=== PATIENT | female | born 1960 | race Caucasian/White ===

== ENCOUNTER 2018-01-06 06:43 | Day surgery (SDC) | payer BC, OTHER, SELFPAY ==
--- NOTE | 2018-01-06 | PATH_ITS ---
[facility] Accession Number: [id number] . 01 Material submitted: . POLYP AT 15 . 02 Diagnosis: Colon Polyp at 15 cm: Hyperplastic polyp. MRV/01/09/2018 . 02 Electronically signed: . Joao White MD, PhD, Pathologist NPI- [id number] . 01 Gross description: . POLYP AT 15: Received in formalin are 1 fragment(s) of davis, soft tissue measuring 0.3 x 0.2 x 0.1 cm to 0.2 x 0.2 x 0.2 cm submitted entirely in 1 cassette(s) /CKI /CKI . 02 Pathologist provided ICD-10: K63.5 . 02 CPT . 688195 Performed at: [address] [facility] [address] [place] [address], [place], [place] [id number] MD John Page MD Phone: [phone] Performed at: 02 [facility] [address] [place], [place] [id number] MD Rodger Kohli MD Phone: [phone]
[2018-01-06 07:30] VITALS: BP 130/78; PULSE 100; RESP 16; TEMP 36.4; O2SAT 99; BMI 29.9
[2018-01-06] MEDS: MIDAZOLAM 5 MG/5 ML VIAL IV (08:41)
[2018-01-06] MEDS: fentaNYL 250 MCG/5 ML INJ IV (08:42)
--- NOTE | 2018-01-06 08:47 | PM.OP.ENDO ---
Operative Date/Time/Diagnoses Date of procedure: 01/06/18 Time of procedure: 08:47 Post-op diagnosis: same (Normal exam except for small polyp in the rectum at 15 cm from the anal verge) Procedure & Clinicians Study performed: Colonoscopy with cold biopsy Same procedure as scheduled: Yes Indications: Abnormal PET scan in a patient with a history of lymphoma Surgeon: Ulysses Jones Procedure Notes SCOAP/Timeout: Performed Procedure in detail: The patient was placed in the left lateral decubitus position and underwent IV sedation directed by the surgeon consisting of fentanyl and Versed. Digital exam was remarkable for lax sphincter and some redundant tissue at the anus. The scope was inserted and advanced through the rectum into the sigmoid, descending, transverse, and ascending colon. All were normal in appearance. Nothing was seen to correlate with the PET findings. The cecum was reached identified by the ileocecal valve and the appendiceal opening. The ileocecal valve was successfully cannulated. The terminal ileum was normal in appearance. The scope was gradually brought out. A Polyp was found at[15 cm from the anal verge]. The scope ultimately was retroflexed in the rectum. The appearance was[normal except for 1 small hemorrhoid.]. The scope was removed and the patient tolerated the procedure well Scope withdrawal time: Over 6 min Sedation minutes: 27 Findings: internal hemorrhoids and polyp (One small rectal) Specimen(s): other (Polyp) Complications: none Recommendations: Colonscopy in 5 years Follow up: as needed Disposition: PACU
--- NOTE | 2018-01-06 09:03 | PM.PREOP ---
Pre-operative Note Interval Note Pre-op Check: Yes History & Physical Reviewed by Physician and Yes Exam Performed Changes: No ASA Class (for procedural sedation): II
[2018-01-06 10:08] VITALS: BP 118/68; PULSE 94; RESP 16; TEMP 36.4; O2SAT 99
== END 2018-01-06 09:05 | disposition home or self-care (01) ==
PROVIDERS: Visit Provider Specialist
PROC: 0DJD8ZZ Inspection of Lower Intestinal Tract, Via Natural or Artificial Opening Endoscopic (ICD-10-PCS; CPT 45378; principal; 2018-01-06 07:45)
DX: R94.8 Abnormal results of function studies of other organs and systems (principal); C85.10 Unspecified B-cell lymphoma, unspecified site; I10 Essential (primary) hypertension; K64.8 Other hemorrhoids; K63.5 Polyp of colon
CPT/HCPCS: 45380; 99152; 99153; J2250; J3010

== ENCOUNTER → 2018-04-07 14:08 | Outpatient (CLI) | payer OTHER, SELFPAY ==
--- NOTE | 2018-04-07 | DI.CT.S_ITS ---
PROCEDURE: CT SOFT TISSUE NECK W CON INDICATIONS: LYMPHOMA TECHNIQUE: After the administration of intravenous contrast, 3.0 mm axial sections acquired from the sella to the aortic arch. Additional oblique axial 3.0 mm sections acquired through the pharynx. 3 mm thick coronal and sagittal reformats were generated. For radiation dose reduction, the following was used: automated exposure control. COMPARISON: [facility], CT, C-SPINE WITHOUT CONTRAST, 04/18/2012, 23:51. [facility], CT, SOFT TISSUE NECK W CONTRAST, 06/07/2017, 12:42. [facility], CT, CT CHEST ABD PEL W CON, 04/07/2018, 14:59. FINDINGS: Image quality: Excellent. Lymph nodes: No enlarged lymph nodes seen throughout the neck. Vessels: Visualized vasculature appears patent. Neck spaces: The oropharynx, nasopharynx, and pharynx demonstrate no mucosal lesions. The vocal cords, false vocal cords, pyriform sinuses, epiglottis, vallecula, and tongue base all appear normal. Extramucosal spaces appear unremarkable. Glands: The previously seen left parotid gland abnormality is no longer seen. The parotid glands demonstrate a normal, symmetric appearance. The submandibular glands are unremarkable and demonstrate a normal, symmetric appearance. Thyroid gland demonstrates no significant CT abnormality. Miscellaneous: Visualized brain and orbits appear normal. Lung apices appear clear. Superficial soft tissues appear normal. Bones: No suspicious bony lesions. Visualized sinuses and mastoids appear unremarkable. Cervical spine degenerative changes are seen, which are most prominent at the C5-C6 level, where there is moderate to severe disc space narrowing, with associated endplate irregularity and sclerosis. IMPRESSION: No enlarged lymph nodes can be seen in this patient with a presenting history of lymphoma. The previously seen left parotid mass is no longer seen. Incidental note is made of: Focal C5-C6 degenerative change Dictated by: Christopher Henriquez M.D. on 04/07/2018 at 15:59 Approved by: Christopher Henriquez M.D. on 04/07/2018 at 16:02
--- NOTE | 2018-04-07 | DI.CT.S_ITS ---
PROCEDURE: CT CHEST ABD PEL W CON INDICATIONS: LYMPHOMA TECHNIQUE: After the administration of oral and intravenous contrast, 5 mm thick sections acquired from the lung apices to the symphysis. 5 mm coronal and sagittal reformats were performed, with additional 7 mm coronal MIP reformats through the lungs. For radiation dose reduction, the following was used: automated exposure control, adjustment of mA and/or kV according to patient size. COMPARISON: [place], [place], [place] PET CT FUSION SKULL 2 THIGH, 12/14/2017, 13:44. FINDINGS: Image quality: Excellent. CHEST: Lungs and pleura: No acute airspace opacities. No pleural effusions or pneumothorax. Central and peripheral airways appear patent and normal in caliber. Mediastinum: Heart size is normal. No pericardial effusion. No mediastinal or hilar adenopathy by size criteria. Thoracic aorta and central pulmonary arteries are normal in size. Scattered atheromatous calcifications are present within the aortic arch. Esophagus is normal in caliber. No hiatal hernia. Chest wall: No axillary or supraclavicular adenopathy by size criteria. Thyroid gland is unremarkable. ABDOMEN: Solid organs: Liver is normal in size and enhancement. Gallbladder is unremarkable. Biliary system is non dilated. Pancreas enhances normally. Spleen is normal in size and enhancement. No adrenal nodules. Kidneys demonstrate normal size and enhancement, without hydronephrosis. Peritoneum and bowel: Bowel loops demonstrate normal wall thickness and caliber. No free fluid or air. Nodes and vessels: There multiple large mesenteric lymph nodes predominantly within the mid abdomen near the mesenteric root. A assisted sales representative lymph node anterior to the proximal jejunum now measures 1.0 mm in diameter and previously measured 1.1 mm in diameter. An enlarged left retroperitoneal lymph node is similar in size and measures 10 mm in diameter as before. Aorta and inferior vena cava are normal in size. There are scattered atheromatous calcifications throughout the aorta and iliac arteries bilaterally. Miscellaneous: No ventral hernias. PELVIS: Genitourinary: Bladder wall thickness is normal. The uterus and ovaries are grossly unremarkable. Miscellaneous: No inguinal hernias or adenopathy. Bones: No suspicious bony lesions. No vertebral body compression fractures. IMPRESSION: 1. Mesenteric and retroperitoneal adenopathy overall similar in extent when accounting for variation in technique when compared with the study dated 12/14/17. 2. No acute cardiopulmonary or intra-abdominal findings. Dictated by: Nikki Lozano M.D. on 04/07/2018 at 17:34 Approved by: Nikki Lozano M.D. on 04/07/2018 at 17:42
== END ==
PROVIDERS: Visit Provider Internal Medicine Hematology & Oncology
DX: C82.90 Follicular lymphoma, unspecified, unspecified site (principal); R59.0 Localized enlarged lymph nodes
CPT/HCPCS: 70491; 71260; 74177; Q9967

== ENCOUNTER → 2018-08-25 13:39 | Outpatient (CLI) | payer OTHER, SELFPAY ==
--- NOTE | 2018-08-25 | DI.RAD.S_ITS ---
PROCEDURE: XR HIP W PEL IF DONE BILAT 2V INDICATIONS: NECK AND BILATERAL HIP PAIN TECHNIQUE: AP pelvis with lateral view(s) of the bilateral hip(s). COMPARISON: None. FINDINGS: Bones: No fractures or dislocations. Mild bilateral symmetric hip joint osteoarthritic changes are seen. No evidence of avascular necrosis. Pelvic ring appears intact. No suspicious bony lesions. Soft tissues: The visualized bowel gas pattern is normal. No suspicious soft tissue calcifications. IMPRESSION: Symmetric-appearing mild bilateral hip joint osteoarthritis. Dictated by: Beltran Amaya M.D. on 08/25/2018 at 15:27 Approved by: Beltran Amaya M.D. on 08/25/2018 at 15:28
--- NOTE | 2018-08-25 | DI.RAD.S_ITS ---
PROCEDURE: XR CERVICAL SPINE 2V OR 3V INDICATIONS: NECK PAIN TECHNIQUE: 3 view(s) of the cervical spine were acquired. COMPARISON: None. FINDINGS: Bones: There is straightening and mild reversal of normal cervical lordosis centered at C4-5 level. Minimal anterolisthesis of C3 on C4 is seen. No acute compression fracture. Degenerative disc disease throughout cervical spine is seen more prominent at C4-5 and C5-6 levels. The lateral masses of C1 appear intact on the odontoid view. No suspicious bony lesions. Soft tissues: No prevertebral soft tissue swelling. IMPRESSION: Degenerative disc disease throughout cervical spinal prominent at C4-5 and C5-6 levels. No compression fracture. Minimal anterolisthesis of C3 on C4. Dictated by: Beltran Amaya M.D. on 08/25/2018 at 15:28 Approved by: Beltran Amaya M.D. on 08/25/2018 at 15:31
--- NOTE | 2018-08-25 | DI.CT.S_ITS ---
PROCEDURE: CT SOFT TISSUE NECK W CON INDICATIONS: LOW GRADE B-CELL LYMPHOMA TECHNIQUE: After the administration of intravenous contrast, 3.0 mm axial sections acquired from the sella to the aortic arch. Additional oblique axial 3.0 mm sections acquired through the pharynx. 3 mm thick coronal and sagittal reformats were generated. For radiation dose reduction, the following was used: automated exposure control. COMPARISON: [facility], CT, CT SOFT TISSUE NECK W CON, 04/07/2018, 14:59. FINDINGS: Image quality: Excellent. Lymph nodes: No enlarged lymph nodes seen throughout the neck. Vessels: Visualized vasculature appears patent. Neck spaces: The oropharynx, nasopharynx, and pharynx demonstrate no mucosal lesions. The vocal cords, false vocal cords, pyriform sinuses, epiglottis, vallecula, and tongue base all appear normal. Extramucosal spaces appear unremarkable. Glands: The parotid and submandibular glands appear normal. Thyroid gland is within normal limits. Miscellaneous: Visualized brain and orbits appear normal. Lung apices appear clear. Superficial soft tissues appear normal. Bones: No suspicious bony lesions. Visualized sinuses and mastoids appear unremarkable. Reversal of normal cervical lordosis is seen liquid one anterolisthesis at C3-4 and C4-5 levels. Degenerative disc disease at C4-5 and C5-6 levels are seen. IMPRESSION: 1. No evidence of neck soft tissue lymphadenopathy by size criteria. 2. Airway is patent. 3. Degenerative disc disease in mid to lower cervical spine. Dictated by: Beltran Amaya M.D. on 08/25/2018 at 16:47 Approved by: Beltran Amaya M.D. on 08/25/2018 at 16:53
--- NOTE | 2018-08-25 | DI.RAD.S_ITS ---
PROCEDURE: XR ELBOW LT MIN 3V INDICATIONS: LEFT ELBOW PAIN AT OLECRANON TIP TECHNIQUE: 3 views of the elbow were acquired. COMPARISON: None. FINDINGS: Bones: No fractures or dislocations. No suspicious bony lesions. Soft tissues: No elbow joint effusion. No suspicious soft tissue calcifications. IMPRESSION: No elbow fracture or dislocation. No gross soft tissue abnormality. Dictated by: Beltran Amaya M.D. on 08/25/2018 at 15:31 Approved by: Beltran Amaya M.D. on 08/25/2018 at 15:32
--- NOTE | 2018-08-25 | DI.CT.S_ITS ---
PROCEDURE: CT CHEST ABD PEL W CON INDICATIONS: LOW GRADE B-CELL LYMPHOMA TECHNIQUE: After the administration of oral and intravenous contrast, 5 mm thick sections acquired from the lung apices to the symphysis. 5 mm coronal and sagittal reformats were performed, with additional 7 mm coronal MIP reformats through the lungs. For radiation dose reduction, the following was used: automated exposure control, adjustment of mA and/or kV according to patient size. COMPARISON: [facility], CT, CT CHEST ABD PEL W CON, 04/07/2018, 14:59. FINDINGS: Image quality: Excellent. CHEST: Lungs and pleura: No acute airspace opacities. No pleural effusions or pneumothorax. Central and peripheral airways appear patent and normal in caliber. Mediastinum: Heart size is normal. No pericardial effusion. No mediastinal or hilar adenopathy by size criteria. Thoracic aorta and central pulmonary arteries are normal in size. Esophagus is normal in caliber. No hiatal hernia. Chest wall: No axillary or supraclavicular adenopathy by size criteria. Thyroid gland is within normal limits. ABDOMEN: Solid organs: Liver is normal in size and enhancement. Gallbladder contains multiple small stones in its dependent portion. No gallbladder wall thickening or pericholecystic fluid.. Biliary system is non dilated. Pancreas enhances normally. Spleen is normal in size and enhancement. No adrenal nodules. Kidneys demonstrate normal size and enhancement, without hydronephrosis. Peritoneum and bowel: Bowel loops demonstrate normal wall thickness and caliber. No free fluid or air. Patient is status post gastric bypass surgery. Nodes and vessels: Previously described mesenteric lymphadenopathy within the abdomen near the mesenteric root are again seen, and measures up to 1.1 cm in short axis diameter and not significantly changed from previous study series 6 image 72. Previously described left retroperitoneal lymph node now measures 7 mm in short axis diameter compared to 1 cm on previous study. No new area of lymphadenopathy is seen. Aorta and inferior vena cava are normal in size. Miscellaneous: No ventral hernias. PELVIS: Genitourinary: Bladder wall thickness is normal. Miscellaneous: No inguinal hernias or adenopathy. Bones: No suspicious bony lesions. No vertebral body compression fractures. Degenerative disc disease throughout thoracic and lumbar spine is seen IMPRESSION: 1. Stable mildly enlarged mesenteric lymph nodes unchanged from prior study. Interval decrease in size of previously noted left retroperitoneal lymphadenopathy as above. No evidence of lymphadenopathy is seen in chest or pelvis. 2. No acute cardiopulmonary or intra-abdominal findings. No significant changes from previous study. Dictated by: Beltran Amaya M.D. on 08/25/2018 at 16:55 Approved by: Beltran Amaya M.D. on 08/25/2018 at 17:03
== END ==
PROVIDERS: Family Provider Family Medicine; PCP Family Medicine; Visit Provider Internal Medicine Hematology & Oncology
DX: C85.10 Unspecified B-cell lymphoma, unspecified site (principal); M50.321 Other cervical disc degeneration at C4-C5 level; M25.551 Pain in right hip; M25.552 Pain in left hip; M16.0 Bilateral primary osteoarthritis of hip; M25.522 Pain in left elbow
CPT/HCPCS: 70491; 71260; 72040; 73080; 73521; 74177; Q9967

== ENCOUNTER → 2018-11-11 12:50 | Outpatient (CLI) | payer OTHER, SELFPAY ==
--- NOTE | 2018-11-11 | DI.MRI.S_ITS ---
PROCEDURE: MR LUMBAR SPINE WO CON INDICATIONS: Low Back Pain. Bilateral leg radicular pain TECHNIQUE: Noncontrast sagittal T1 spin echo and T2 fast echo, sagittal STIR, axial T1 and T2 fast spin echo through the lumbar spine. In cases with scoliosis, additional coronal T2 fast spin echo may be performed. COMPARISON: [facility], CR, L-SPINE 2-3 VIEWS, 07/05/2016, 18:31. [facility], MR, L-SPINE WITHOUT CONTRAST, 11/01/2012, 19:20. FINDINGS: Image quality: Excellent. Alignment and Curvature: There is normal bony alignment. Bone Marrow: Marrow is of normal overall signal. No acute vertebral body compression fractures. Spinal Cord: Conus medullaris terminates at the L1 level. Visualized cord demonstrates normal signal and size. Paraspinous Soft Tissues: No paravertebral masses. L1-L2: Normal appearance. L2-L3: Loss of disc signal. Mild, diffuse disc bulge. Mild bilateral facet hypertrophy. Mild narrowing of the central canal. Mild left neural foraminal narrowing. No neural impingement. L3-L4: Loss of disc signal. Mild, diffuse disc bulge. Mild to moderate bilateral facet hypertrophy. Moderate narrowing of the central canal. Moderate bilateral neural foraminal narrowing. No neural impingement. L4-L5: Loss of disc signal and height. Moderate, diffuse disc bulge. Mild bilateral facet hypertrophy. Moderate to severe narrowing of the central canal. Moderate to severe bilateral neural foraminal narrowing. No neural impingement. Focal high intensity zone is noted in the posterior annulus compatible with a fissure. L5-S1: Loss of disc signal. Mild diffuse disc bulge. Mild bilateral facet hypertrophy. No central stenosis. Moderate to severe bilateral neural foraminal narrowing with slight compression of the exiting L5 nerve roots. Focal high intensity zone is noted in the left foraminal annulus compatible with a fissure. IMPRESSION: 1. Multilevel degenerative disc disease. 2. Multilevel facet arthropathy. 3. Moderate to severe L4-L5 central canal narrowing. Moderate L3-L4 central canal narrowing. Mild L2-L3 central canal narrowing. 4. Moderate to severe lateral L4-L5 and L5-S1 neural foraminal narrowing. Moderate bilateral L3-L4 neural foraminal narrowing. Mild left L2-L3 neural foraminal narrowing. 5. Slight compression of the exiting bilateral L5 nerve roots secondary to bilateral L5-S1 neural foraminal narrowing. Please correlate clinically. 6. L4-L5 and L5-S1 disc annulus fissures. Dictated by: Gloria Shea MD, PhD on 11/13/2018 at 13:15 Approved by: Gloria Shea MD, PhD on 11/13/2018 at 13:20
== END ==
PROVIDERS: Family Provider Family Medicine; PCP Family Medicine; Visit Provider Family Medicine
DX: M54.5 Low back pain (principal); M51.16 Intervertebral disc disorders with radiculopathy, lumbar region; M51.17 Intervertebral disc disorders with radiculopathy, lumbosacral region; M48.061 Spinal stenosis, lumbar region without neurogenic claudication; M48.07 Spinal stenosis, lumbosacral region; M47.26 Other spondylosis with radiculopathy, lumbar region; M47.27 Other spondylosis with radiculopathy, lumbosacral region
CPT/HCPCS: 72148

== ENCOUNTER → 2019-08-28 10:15 | Outpatient (CLI) | payer OTHER, SELFPAY ==
[2019-08-28 10:49] LABS: Add Manual Diff / Slide Review NO; Basophils Absolute Auto 0 /uL (0-100); Basophils Percent Auto 0.7 % (0-2); Eosinophils Absolute Auto 300 /uL (0-450); Eosinophils Percent Auto 3.6 % (2-4); Hematocrit 31.6 % (36-46); Hemoglobin 9.9 g/dL (12.0-16.0); Lymphocytes Absolute Auto 1700 /uL (1100-4500); Lymphocytes Percent Auto 23.9 % (25-40); Mean Corpuscular HGB Conc 31.3 % (30-36); Mean Corpuscular Hemoglobin 20.9 PG (26-34); Mean Corpuscular Volume 66.8 fL (80-100); Monocytes Absolute Auto 400 /uL (0-900); Monocytes Percent Auto 5.5 % (3-14); Neutrophils Absolute Auto 4700 /uL (1500-7000); Neutrophils Percent Auto 66.3 % (50-75); Platelet Count 351 X10^3/uL (150-400); Red Blood Cell Count 4.73 X10^6/uL (4.0-5.2); Red Cell Distribution Width 18.7 % (11.6-14.8); White Blood Cell Count 7.1 X10^3/uL (4.5-11.0)
[2019-08-28 11:07] LABS: Microcytosis 3+
[2019-08-28 11:10] LABS: Erythrocyte Sedimentation Rate 16 MM/HR (0-20)
[2019-08-28 11:11] LABS: Lactate Dehydrogenase 427 U/L (313-618)
== END ==
PROVIDERS: Family Provider Family Medicine; PCP Student in an Organized Health Care Education/Training Program; Referring Provider Internal Medicine Hematology & Oncology; Visit Provider Internal Medicine Hematology & Oncology
DX: C85.10 Unspecified B-cell lymphoma, unspecified site (principal)
CPT/HCPCS: 36415; 83615; 85025; 85651

== ENCOUNTER 2020-05-16 13:27 | Emergency (ER) | payer OTHER, SELFPAY ==
[2020-05-16 13:34] VITALS: BP 191/89; PULSE 81; RESP 16; TEMP 37.6; O2SAT 100; O2SAT 96; BMI 27.6
[2020-05-16 13:38] VITALS: BP 191/89; PULSE 79; O2SAT 99
--- NOTE | 2020-05-16 13:46 | DI.RAD.S_ITS ---
PROCEDURE: XR FOOT LT MIN 3V INDICATIONS: pain in bilateral side left foot/ankle, swelling to lateral malle TECHNIQUE: 3 views of the foot were acquired. COMPARISON: [facility], CR, XR ANKLE LT MIN 3V, 05/16/2020, 13:51. FINDINGS: Bones: No fractures or dislocations. No suspicious bony lesions. There are corticated accessory ossicles (os tibialis externum and os peroneum). Soft tissues: No tibiotalar joint effusion. Achilles tendon appears normal. IMPRESSION: No fracture or dislocation. Dictated by: Alonso Luke M.D. on 05/16/2020 at 15:23 Approved by: Alonso Luke M.D. on 05/16/2020 at 15:26
--- NOTE | 2020-05-16 13:46 | DI.RAD.S_ITS ---
PROCEDURE: XR ANKLE LT MIN 3V INDICATIONS: s/p fall 1 wk ago, fell off curve, landed on inverted left ankle TECHNIQUE: 3 views of the ankle were acquired. COMPARISON: [facility], , XR FOOT LT MIN 3V, 05/16/2020, 13:51. FINDINGS: Bones: No fractures or dislocations. Mild widening of medial ankle joint space. No suspicious bony lesions. Soft tissues: No tibiotalar joint effusion. Achilles tendon appears normal. IMPRESSION: 1. No acute osseous abnormalities. 2. Mild widening of medial ankle joint space. Dictated by: Alonso Luke M.D. on 05/16/2020 at 15:21 Approved by: Alonso Luke M.D. on 05/16/2020 at 15:23
[2020-05-16 14:01] VITALS: PULSE 74; O2SAT 97
--- NOTE | 2020-05-16 14:02 | ED.LOWEXIN ---
HPI - Extremity Injury (Lower) <NILSA Turcios - Last Filed: 05/16/20 15:57> General Chief Complaint: Extremity Injury, Lower Stated Complaint: FELL LAST TUESDAY, CAN'T WALK ON LEFT FOOT Time Seen by Provider: 05/16/20 13:29 Source: patient Mode of arrival: Ambulatory Limitations: no limitations History of Present Illness HPI Narrative: This is a 60-year-old female, smoker, who has past medical history significant for hypertension, hyperlipidemia, type 2 diabetes, depression, chronic low back pain presents to ED with chief complain of left foot and ankle pain for a week. Patient reports she accidentally fell off a curb and landed on bilateral inverted foot and ankle. At that time, patient felt and heard a pop. Patient thought pain will improve after the injury but last night when she went to the bathroom with the certain movements pain jumped up to 12/10. Reports pain locating in mid food and medial and lateral foot and ankle. Patient reports mild swelling to lateral malleolar region. She noticed bruise in heel and Achilles tendon area. Reports pain increases with movement and by touch. She reports pain as 7 to 8/10 at this time. Patient reports intact sensation and is able to move her toes. Patient reports unable to bear weight on affected food and difficulty with plantar flexion and dorsal flexion due to pain. Patient had fractured ankle at age 5 but is not sure whether right or left ankle. Related Data Home Medications Medication Instructions Recorded Confirmed ASPIRIN (Aspirin Ec) 81 mg PO Q DAY #0 11/08/09 12/28/17 HYDROCHLOROTHIAZIDE (Hydrodiuril / 25 mg PO DAILY #0 11/08/09 12/28/17 Hctz) Metoprolol Succinate (Toprol Xl) 100 mg PO #0 11/08/09 TEMAZEPAM (Restoril) 30 mg PO PRN #0 11/08/09 celecoxib 200 mg capsule 200 mg PO DAILY 12/28/17 12/28/17 metoprolol succinate 50 mg 25 mg PO DAILY 12/28/17 12/28/17 tablet,extended release 24 hr pravastatin 20 mg tablet 20 mg PO DAILY 12/28/17 12/28/17 pregabalin 150 mg capsule 150 mg PO DAILY cap 12/28/17 12/28/17 zolpidem 10 mg tablet 10 mg PO BEDTIME PRN 12/28/17 12/28/17 Previous Rx's Medication Instructions Recorded albuterol sulfate [Ventolin HFA] 1 puff INH QIDP PRN #1 ea 01/01/16 fluticasone propion-salmeterol 1 puff INH BID #60 dose 01/01/16 [Advair Diskus] trazodone 0 PO SEE INSTRUCTIONS #90 tab 01/27/16 promethazine 25 mg PO Q6HP PRN #120 tab 03/01/16 duloxetine [Cymbalta] 30 mg PO SEE INSTRUCTIONS #90 cap 06/10/16 cyclobenzaprine 10 mg PO TIDP PRN #90 tab 08/10/16 Allergies Allergy/AdvReac Type Severity Reaction Status Date / Time latex [LATEX] Allergy Mild hives/rash Verified 05/16/20 13:38 Penicillins [PENICILLINS] Allergy Unknown Verified 05/16/20 13:38 Review of Systems <NILSA Turcios - Last Filed: 05/16/20 15:57> Review of Systems Narrative: General: Denies fever, chills, fatigue, malaise, sweats. Respiratory: Denies dyspnea, cough, wheezing, hemoptysis, sputum. Cardiovascular: Denies chest pain, palpitations, orthopnea, edema. Musculoskeletal: See HPI Skin: See HPI Patient History <NILSA Turcios - Last Filed: 05/16/20 15:57> Medical History Cervical spondylosis with radiculopathy Herniated nucleus pulposus, L4-5 HTN (hypertension) Low grade B-cell lymphoma Neck pain, chronic Surgical History History of heart artery stent History of lumpectomy Status post delivery Status post tubal ligation Family History Brother Age: 56 Heart disease Father Hypertension Gallstones Diabetes mellitus Mother Gallstones Crohns disease Social History marital status: household members: spouse Smoking Status: Current every day smoker alcohol intake: never substance use type: other Smoking Status: Current every day smoker Substance Use Type: marijuana Exam <Hawk Aguilar 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 Head: normocephalic, atraumatic, no scalp lesions, non-tender. ENT: Hearing grossly intact. Airway patent. Neck/Thyroid: neck supple, full range of motion, no visible masses or meningeal signs. No JVD, non-tender without lymphadenopathy. Skin: Mild ecchymosis to posterior left food and Achillis tendon region. Warm and dry and appropriate color for ethnicity. Heart: no clubbing, no cyanosis, no edema. S1 and S2 normal. RRR w/o murmurs, clicks, or bruits. Lungs: Breathing even and unlabored. No stridor. No accessory muscles used. Able to speak in full sentences. Chest: normal shape and expansion. Abdomen: non-obese, non-distended. Neurologic: alert and oriented. Cognitive exam, [employer] and PNS grossly intact on informal exam. Psych: good eye contact, normal affect. Initial Vital Signs Initial Vital Signs: Vital Signs Temperature 99.6 F 05/16/20 13:34 Pulse Rate 81 05/16/20 13:34 Respiratory Rate 16 05/16/20 13:34 Blood Pressure 191/89 H 05/16/20 13:34 Pulse Oximetry 100 05/16/20 13:34 Extrem Left lower extremity: ankle Details: abnormal to inspection, tenderness, swelling Details: laterally (Malleolar), abnormal ROM Details: pain with active ROM and pain with passive ROM and ecchymosis (Achillis tendon region); no warmth, no abrasions, no lacerations and no crepitus and foot Details: normal capillary refill, tenderness, toes with normal ROM, edema, ecchymosis (Light yellowish bruise in lateral foot), vascular exam Details: dorsalis pedis pulse present and normal capillary refill, tendon exam (Decrease plantar flexion and dorsal extension due to pain) and motor-sensory exam Details: light-touch normal; no crepitus and no puncture wound <Lorie Hill DO - Last Filed: 05/17/20 07:24> Initial Vital Signs Initial Vital Signs: Vital Signs Temperature 99.6 F 05/16/20 13:34 Pulse Rate 81 05/16/20 13:34 Respiratory Rate 16 05/16/20 13:34 Blood Pressure 191/89 H 05/16/20 13:34 Pulse Oximetry 100 05/16/20 13:34 Procedures <NILSA Turcios - Last Filed: 05/16/20 15:57> Orthopedic Splinting/Casting Injury #1: Side: left Lower Extremity Injury Location: ankle and foot Lower Extremity Immobilizer: stirrup splint and Miguel wrap Other Orthopedic Equipment: crutches Post splinting neuro exam: intact Post splinting vascular exam: intact Placed by: Nursing Scores <NILSA Turcios - Last Filed: 05/16/20 15:57> GCS Sonail coma scale eye opening: Spontaneous Sonali coma scale verbal response: Orientated [place] coma scale motor response: Obey commands [place] coma scale total score: 15 Course <NILSA Turcios - Last Filed: 05/16/20 15:57> Orders Ordered: ED Orders 05/16/20 13:46 XR ankle LT min 3V Stat XR foot LT min 3V Stat Reevaluation(s) Reevaluation #1: XRAy department contacted for delayed reading. Informed that it is being read by radiologist at this time. Time: 14:55 Vital Signs Vital signs: Vital Signs - 8 hr 05/16/20 13:34 05/16/20 13:38 05/16/20 14:01 Temperature 99.6 F Pulse Rate 81 79 74 Respiratory Rate 16 Blood Pressure 191/89 H 191/89 H Pulse Oximetry 96 99 97 05/16/20 14:30 05/16/20 15:00 05/16/20 15:06 Temperature Pulse Rate 72 72 75 Respiratory Rate Blood Pressure 163/62 H Pulse Oximetry 98 97 98 <Lorie Hill DO - Last Filed: 05/17/20 07:24> Orders Ordered: ED Orders 05/16/20 13:46 XR ankle LT min 3V Stat XR foot LT min 3V Stat Vital Signs Vital signs: Vital Signs - 8 hr 05/16/20 13:34 05/16/20 13:38 05/16/20 14:01 Temperature 99.6 F Pulse Rate 81 79 74 Respiratory Rate 16 Blood Pressure 191/89 H 191/89 H Pulse Oximetry 96 99 97 05/16/20 14:30 05/16/20 15:00 05/16/20 15:06 Temperature Pulse Rate 72 72 75 Respiratory Rate Blood Pressure 163/62 H Pulse Oximetry 98 97 98 MDM - Extremity Injury (Lower) <NILSA Turcios - Last Filed: 05/16/20 15:57> Differential Diagnosis Differential diagnosis: Likely ankle sprain and strain, ankle fracture and other (Foot strain/sprain, foot fracture) Medical Records Attestation: I reviewed the patient's medical records. Imaging Data XR- Foot LT: Radiologist's Impression: [address] [id number] ReportSigned Patient: Danae Canseco MMR#: [id number]: 1960cct:[id number]/Sex: 60 / FDate of Service: 05/16/20Loc: EDAccession Number: [id number] Procedure: XR foot LT min 3V Ordering Provider: Hawk Aguilar PROCEDURE: XR FOOT LT MIN 3V INDICATIONS: pain in bilateral side left foot/ankle, swelling to lateral malle TECHNIQUE: 3 views of the foot were acquired. COMPARISON: [facility], , XR ANKLE LT MIN 3V, 05/16/2020, 13:51. FINDINGS: Bones: No fractures or dislocations. No suspicious bony lesions. There are corticated accessory ossicles (os tibialis externum and os peroneum). Soft tissues: No tibiotalar joint effusion. Achilles tendon appears normal. IMPRESSION: No fracture or dislocation. Dictated by: Alonso Luke M.D. on 05/16/2020 at 15:23 Approved by: Alonso Luke M.D. on 05/16/2020 at 15:26 XR-Ankle LT: Radiologist's Impression: [address] [id number] ReportSigned Patient: Danae aCnseco MMR#: [id number]: 1960cct:[id number]/Sex: 60 / FDate of Service: 05/16/20Loc: EDAccession Number: [id number] Procedure: XR ankle LT min 3V Ordering Provider: Hawk Aguilar PROCEDURE: XR ANKLE LT MIN 3V INDICATIONS: s/p fall 1 wk ago, fell off curve, landed on inverted left ankle TECHNIQUE: 3 views of the ankle were acquired. COMPARISON: [facility], CR, XR FOOT LT MIN 3V, 05/16/2020, 13:51. FINDINGS: Bones: No fractures or dislocations. Mild widening of medial ankle joint space. No suspicious bony lesions. Soft tissues: No tibiotalar joint effusion. Achilles tendon appears normal. IMPRESSION: 1. No acute osseous abnormalities. 2. Mild widening of medial ankle joint space. Dictated by: Alonso Luke M.D. on 05/16/2020 at 15:21 Approved by: Alonso Luke M.D. on 05/16/2020 at 15:23 MDM Narrative Medical decision making narrative: This is a 60 year female who injured left ankle and foot 1 week ago after fell off of high curve. Patient reports bruise in Achilles tendon region with limited active and passive range of motion due to pain and mild swelling to lateral malleolar and midfoot. Patient has intact sensation, distal pulses. Patient is able to move toes. X-ray test on left foot and ankle does not show acute findings including fractures, dislocations and Achilles tendon appears normal. Findings were shared with patient and patient informed will use Miguel wrap and prefabricated ankle splint for immobilization and pain and to use crutches as needed for weight-bearing. Patient advised to use [id number] Tylenol and or Motrin as needed for pain and to elevate affected foot if swelling occurs. Advised to follow-up with orthopedist if pain persists greater than 2 weeks with limited mobility. Return precautions were discussed with patient and she verbalized understanding in agreement with the treatment plan. Discharge Plan Departure Patient Disposition: Home Clinical Impression: Ankle sprain Qualifiers: Encounter type: initial encounter Involved ligament of ankle: unspecified ligament Laterality: left Qualified Code(s): S93.402A - Sprain of unspecified ligament of left ankle, initial encounter Foot sprain Qualifiers: Encounter type: initial encounter Laterality: left Qualified Code(s): S93.602A - Unspecified sprain of left foot, initial encounter Instructions: DI for Ankle Sprain, DI for Foot Sprain Activity Restrictions/Additional Instructions: You have been diagnosed with [left foot and ankle sprain/strain. X-ray tests on foot and ankle does not show acute findings. Test Achillis tendon appears normal. Please use Miguel wrap, ankle splint as needed for pain. Use crutches if weight-bearing causes pain.]. What to do: *Take your medications as directed. Please use [id number] Tylenol and or Motrin as needed for discomfort. Tylenol 650-1000 mg up to 3 to 4 times a day as needed. Ibuprofen 400-600 mg up to 3 times a day as needed for pain with food to decrease inflammation. *Follow up with your primary care provider in 2-3 days, call for an appointment. Let them know you were seen in the ED and that we asked you to be seen in follow up. If pain is not improving after 10-14 days, please follow-up with orthopedist for on evaluation. *Return to ED if you have any new, worsening, or concerning symptoms, such as [worsening pain, tingling/numbness/weakness to affected foot distally, chest pain, breathing difficulty, unable to tolerate fluids, or any acute concerns]. Prescriptions: No Action Metoprolol Succinate (Toprol Xl) 100 mg PO Qty: 0 RF: 0 ASPIRIN (Aspirin Ec) 81 mg PO Q DAY Qty: 0 RF: 0 HYDROCHLOROTHIAZIDE (Hydrodiuril / Hctz) 25 mg PO DAILY Qty: 0 RF: 0 TEMAZEPAM (Restoril) 30 mg PO PRN Qty: 0 RF: 0 fluticasone propion-salmeterol [Advair Diskus] 250 MCG/50 MCG blister with device 1 puff INH BID Qty: 60 RF: 3 albuterol sulfate [Ventolin HFA] 90 MCG/PUFF HFA aerosol inhaler 1 puff INH QIDP PRNQty: 1 RF: 2 trazodone 100 MG tablet 0 PO SEE INSTRUCTIONS Qty: 90 RF: 0 promethazine 25 MG tablet 25 mg PO Q6HP PRNQty: 120 RF: 0 duloxetine [Cymbalta] 30 MG capsule,delayed release(DR/EC) 30 mg PO SEE INSTRUCTIONS Qty: 90 RF: 0 cyclobenzaprine 10 MG tablet 10 mg PO TIDP PRNQty: 90 RF: 3 pregabalin [Lyrica] 150 mg capsule 150 mg PO DAILY RF: 0 celecoxib 200 mg capsule 200 mg PO DAILY RF: 0 metoprolol succinate 50 mg tablet extended release 24 hr 25 mg PO DAILY RF: 0 pravastatin 20 mg tablet 20 mg PO DAILY RF: 0 zolpidem 10 mg tablet 10 mg PO BEDTIME PRN (Reason: Insomnia) RF: 0 Referrals: [facility] [Provider Group] Tanvi Crockett MD [Primary Care Provider] - <Lorie Hill DO - Last Filed: 05/17/20 07:24> Cosign ED Attending Kasiaature Attestation: I was immediately available in the department for consultation. Documentation has been reviewed. I agree with assessment and plan.
[2020-05-16 14:30] VITALS: PULSE 72; O2SAT 98
[2020-05-16 15:00] VITALS: PULSE 72; O2SAT 97
[2020-05-16 15:06] VITALS: BP 163/62; PULSE 75; O2SAT 98
== END 2020-05-16 16:10 | disposition home or self-care (01) ==
PROVIDERS: Emergency Provider Nurse Practitioner Family; PCP Student in an Organized Health Care Education/Training Program
DX: S93.402A Sprain of unspecified ligament of left ankle, initial encounter (principal); S93.602A Unspecified sprain of left foot, initial encounter; W19.XXXA Unspecified fall, initial encounter; I10 Essential (primary) hypertension; E78.5 Hyperlipidemia, unspecified; E11.9 Type 2 diabetes mellitus without complications; F32.9 Major depressive disorder, single episode, unspecified; M54.5 Low back pain
CPT/HCPCS: 29540; 73610; 73630; 99283

== ENCOUNTER → 2020-08-26 13:39 | Outpatient (CLI) | payer OTHER, SELFPAY ==
--- NOTE | 2020-08-26 | DI.RAD.S_ITS ---
PROCEDURE: XR HAND LT MIN 3V INDICATIONS: LEFT HAND PAIN TECHNIQUE: 3 views of the hand(s) acquired. COMPARISON: [facility], , HAND 3V LEFT, 11/08/2009, 15:58. FINDINGS: Bones: No fractures or dislocations. Carpal bones are normally aligned. No suspicious bony lesions. Polyarticular joint space narrowing with periarticular osteophytosis. No erosions. Mild osteopenia. Soft tissues: No suspicious soft tissue calcifications. IMPRESSION: Diffuse joint degeneration and diffuse osteopenia. Dictated by: Kale Leroy [facility] Interpreted: Froilan Adams MD on 08/26/2020 at 17:29 Approved by: Froilan Adams M.D. on 08/26/2020 at 17:31
--- NOTE | 2020-08-26 14:17 | DI.RAD.S_ITS ---
PROCEDURE: XR ANKLE LT MIN 3V INDICATIONS: LT ANKLE PAIN TECHNIQUE: 3 views of the ankle were acquired. COMPARISON: [facility], CR, XR ANKLE LT MIN 3V, 05/16/2020, 13:51. FINDINGS: Bones: No fractures or dislocations. Ankle mortise is normally aligned. No suspicious bony lesions. Soft tissues: No tibiotalar joint effusion. Achilles tendon appears normal. IMPRESSION: No definite radiographic abnormality. If pain persists with conservative management, consider cross sectional imaging such as CT or MRI for further assessment. Dictated by: Kale Leroy [facility] Interpreted: Froilan Adams MD on 08/26/2020 at 17:28 Approved by: Froilan Adams M.D. on 08/26/2020 at 17:31
[2020-08-26 15:29] LABS: Add Manual Diff / Slide Review NO; Basophils Absolute Auto 100 /uL (0-100); Basophils Percent Auto 1.1 % (0-2); Eosinophils Absolute Auto 300 /uL (0-450); Eosinophils Percent Auto 4.2 % (2-4); Hemoglobin 9.8 g/dL (12.0-16.0); Lymphocytes Absolute Auto 1800 /uL (1100-4500); Lymphocytes Percent Auto 29.6 % (25-40); Mean Corpuscular HGB Conc 30.7 % (30-36); Mean Corpuscular Hemoglobin 19.7 PG (26-34); Mean Corpuscular Volume 64.2 fL (80-100); Monocytes Absolute Auto 400 /uL (0-900); Neutrophils Absolute Auto 3600 /uL (1500-7000); Neutrophils Percent Auto 59.1 % (50-75); Platelet Count 353 X10^3/uL (150-400); Red Blood Cell Count 4.98 X10^6/uL (4.0-5.2); Red Cell Distribution Width 19.9 % (11.6-14.8); White Blood Cell Count 6.1 X10^3/uL (4.5-11.0)
[2020-08-26 15:36] LABS: Anisocytosis 1+; Poikilocytosis 1+
[2020-08-26 15:48] LABS: Erythrocyte Sedimentation Rate 14 MM/HR (0-20)
[2020-08-26 15:52] LABS: Alanine Aminotransferase 11 IU/L (<35); Albumin 4.2 g/dL (3.5-5.0); Albumin Globulin Ratio 1.4 (1.0-2.8); Alkaline Phosphatase 98 U/L (38-126); Aspartate Aminotransferase 24 IU/L (14-36); BUN Creatinine Ratio 12.3 (6-22); Bilirubin Total 0.2 mg/dL (0.2-1.3); Blood Urea Nitrogen 7 mg/dL (7-17); Calcium 9.7 mg/dL (8.4-10.2); Carbon Dioxide 24 mmol/L (22-32); Chloride 100 mmol/L (98-107); Estimated Glomerular Filt Rate > 60.0 mL/min (>60); Globulin 2.9 g/dL (1.7-4.1); Glucose 137 mg/dL (70-100); HEMOLYSIS < 15 (0-50); Lactate Dehydrogenase 340 U/L (313-618); Sodium 131 mmol/L (137-145); Total Protein 7.1 g/dL (6.3-8.2)
== END ==
PROVIDERS: PCP Student in an Organized Health Care Education/Training Program; Referring Provider Student in an Organized Health Care Education/Training Program; Visit Provider Internal Medicine Hematology & Oncology
DX: M79.642 Pain in left hand (principal); C85.10 Unspecified B-cell lymphoma, unspecified site; M25.572 Pain in left ankle and joints of left foot
CPT/HCPCS: 36415; 73130; 73610; 80053; 83615; 85025; 85651

== ENCOUNTER 2021-06-21 17:29 | Inpatient (IN) | payer OTHER, SELFPAY ==
[2021-06-21] VITALS (11 sets, daily range): BP systolic 134–136; BP diastolic 49–78; PULSE 77–98; RESP 15–43; TEMP 36.7–37.1; O2SAT 80–100; BMI 27.5
--- NOTE | 2021-06-21 17:36 | DI.CT.S_ITS ---
PROCEDURE: CT CERVICAL SPINE WO CON INDICATIONS: fall, midline cervical spine pain TECHNIQUE: Noncontrast 3 mm thick sections acquired from the skull base to the T4 level. Sagittal and coronal reformats were then constructed. For radiation dose reduction, the following was used: automated exposure control, adjustment of mA and/or kV according to patient size. COMPARISON: [facility], CT, C-SPINE WITHOUT CONTRAST, 04/18/2012, 23:51. FINDINGS: Image quality: Excellent. Bones: No fractures or dislocations. Moderate degenerative change in the cervical spine most pronounced C5-C6 and C6-C7, similar. Visualized superior ribs are intact. Impacted mandibular 3rd molars. Missing dentition. Soft tissues: Prevertebral soft tissues are normal in thickness. No paravertebral hematomas. No apical pneumothoraces. IMPRESSION: No acute osseous abnormality. Moderate degenerative change. Dictated by: Fran Perez M.D. on 06/21/2021 at 18:07 Approved by: Fran Perez M.D. on 06/21/2021 at 18:10
--- NOTE | 2021-06-21 17:36 | DI.CT.S_ITS ---
PROCEDURE: CT HEAD/BRAIN WO CON INDICATIONS: fall, gait instability, Left upper extremity weakness TECHNIQUE: Noncontrast 4.5 mm thick angled axial sections acquired from the foramen magnum to the vertex, with coronal and sagittal reformats. For radiation dose reduction, the following was used: automated exposure control, adjustment of mA and/or kV according to patient size. COMPARISON: [facility], CT, HEAD WITHOUT CONTRAST, 04/18/2012, 23:51. FINDINGS: Image quality: Excellent. CSF spaces: Basal cisterns are patent. No extra-axial fluid collections. Ventricles are normal in size and shape. Brain: No midline shift. No intracranial masses or hemorrhage. Rodney-white matter interface appears normal. Skull and face: Calvarium and visualized facial bones are intact, without suspicious lesions. Sinuses: Visualized sinuses and mastoids are clear. IMPRESSION: No acute intracranial abnormality. Dictated by: Fran Perez M.D. on 06/21/2021 at 18:03 Approved by: Fran Perez M.D. on 06/21/2021 at 18:06
--- NOTE | 2021-06-21 17:37 | DI.RAD.S_ITS ---
PROCEDURE: XR CHEST 1V INDICATIONS: fall, multiple chest wall bruises TECHNIQUE: One view of the chest was acquired. COMPARISON: [facility], , CHEST 2 VIEW, 10/13/2012, 12:24. FINDINGS: Surgical changes and devices: None. Lungs and pleura: Lungs are clear. No pleural effusions or pneumothorax. Mediastinum: Mediastinal contours appear normal. Heart size is normal. Bones and chest wall: No suspicious bony lesions. No displaced rib fracture can be seen. Age-appropriate bony degenerative changes are seen. Overlying soft tissues appear unremarkable. IMPRESSION: No displaced rib fracture or pneumothorax can be seen on this plain film study. If there is strong clinical concern for chest trauma in this patient, please consider a follow-up chest CT with IV contrast for further evaluation. Dictated by: Christopher Henriquez M.D. on 06/21/2021 at 17:00 Approved by: Christopher Henriquez M.D. on 06/21/2021 at 17:01
--- NOTE | 2021-06-21 17:38 | ED_ITS ---
HPI - General Adult <Elsi Springer MD - Last Filed: 06/28/21 06:34> General Chief complaint: Weakness Stated complaint: Syncope, glf Time Seen by Provider: 06/21/21 17:30 History of Present Illness HPI narrative: 61-year-old woman with a history of low-grade B-cell lymphoma, hypertension, hyperlipidemia, diabetes, depression, spine that radiculopathies at various levels who complains of increasing gait instability, left arm weakness for the last 2 weeks and multiple falls over the last number of days. Reportedly standing in the bathroom fell forward landing on her chin yesterday which exacerbated her cervical neck pain and radicular pain down the left arm. She fell again this morning landing on a chest with another injury to the chin and upper chest. She has multiple bruises in various stages of healing over multiple parts of her body and states that she simply falls all the time because of her unstable gait. She denies alcohol use. Medics described significant smoke from chronic smoking in the house, significant amount of debris and clut ter with very narrow hallways due to hoarding type levels of debris. Patient states she does live with her . She denies palpitations or shortness of breath. She denies abdominal pain. She complains of right anterior chest wall pain associated with a large new hematoma and right posterior paraspinous tenderness just medial to her scapula. She states that she has not been having any dysuria or over flank pain. Describes no lower extremity edema. No recent headaches or vision changes. Related Data Home Medications Medication Instructions Recorded Confirmed ASPIRIN (Aspirin Ec) 81 mg PO Q DAY #0 11/08/09 06/21/21 pregabalin 150 mg capsule (Lyrica) 150 mg PO DAILY cap 12/28/17 06/21/21 albuterol sulfate 90 mcg/actuation 1 puff INH QIDP PRN 06/21/21 06/21/21 aerosol inhaler (Ventolin HFA) Previous Rx's Medication Instructions Recorded fluticasone 250 mcg-salmeterol 50 1 puff INH BID #60 dose 01/01/16 mcg/dose blistr powdr for inhalation (Advair Diskus) promethazine 25 mg tablet 25 mg PO Q6HP PRN #120 tab 03/01/16 duloxetine 30 mg capsule,delayed 30 mg PO SEE INSTRUCTIONS #90 cap 06/10/16 release (Cymbalta) cyclobenzaprine 10 mg tablet 10 mg PO TIDP PRN #90 tab 08/10/16 atorvastatin 20 mg tablet (Lipitor) 40 mg PO BEDTIME #30 tab 06/27/21 metoprolol succinate 50 mg 50 mg PO DAILY #30 tab 06/27/21 tablet,extended release 24 hr omeprazole 20 mg capsule,delayed 20 mg PO BID #60 cap 06/27/21 release pramipexole 0.25 mg tablet 0.125 mg PO BID #60 tab 06/27/21 (Mirapex) trazodone 100 mg tablet 200 mg PO BEDTIME #30 tab 06/27/21 Allergies Allergy/AdvReac Type Severity Reaction Status Date / Time Penicillins [PENICILLINS] Allergy Severe Swelling Verified 06/25/21 09:51 of Lip/Tongue/Throat latex [LATEX] Allergy Mild hives/rash Verified 06/25/21 09:51 Review of Systems <Elsi Springer MD - Last Filed: 06/28/21 06:34> Review of Systems Narrative: Remainder of complete review of systems is otherwise unremarkable except for that included in the HPI. Patient History <Elsi Springer MD - Last Filed: 06/28/21 06:34> Medical History Cervical spondylosis with radiculopathy Diabetes Herniated nucleus pulposus, L4-5 HTN (hypertension) Low grade B-cell lymphoma Neck pain, chronic Surgical History History of heart artery stent History of lumpectomy Status post delivery Status post tubal ligation Family History Brother Age: 57 Heart disease Father Hypertension Gallstones Diabetes mellitus Mother Gallstones Crohns disease Social History marital status: household members: spouse and family Smoking Status: Current every day smoker alcohol intake: never substance use type: other Smoking Status: Current every day smoker Substance Use Type: marijuana Exam <Elsi Springer MD - Last Filed: 06/28/21 06:34> Initial Vital Signs Initial Vital Signs: Vital Signs Pulse Rate 95 H 06/21/21 17:33 Respiratory Rate 17 06/21/21 17:33 Pulse Oximetry 95 06/21/21 17:33 General: Chronically ill-appearing, disheveled but able to participate with history and exam HEENT: Moist mucous membranes, normal sclera with reactive pupils, Neck: Tenderness along the entire cervical spine midline with some left trapezius muscle spasm as well Respiratory: Lungs with scattered wheezing, no rales no rhonchi. Full and symmetrical air movement Cardiac: Regular rate and rhythm no murmurs no bruits Abdomen: Soft, nontender, good bowel tones, no flank pain Skin: Multiple bruises over both lower extremities and knees in various stages of healing. A large prove over the right anterior chest. She has no bruising over the posterior torso lower abdomen. Neurologic: Weakness in the left upper extremity 4/5 with no sensory abnormalities. (she states this has been present for 2 weeks) Extremities: well perfused, no obvious bony injuries to the lower extremities. No lower extremity edema Psych: Cooperative, appropriate insight and affect <Spencer Torrez DO - Last Filed: 06/21/21 20:40> Initial Vital Signs Initial Vital Signs: Vital Signs Pulse Rate 95 H 06/21/21 17:33 Respiratory Rate 17 06/21/21 17:33 Pulse Oximetry 95 06/21/21 17:33 Scores <Elsi Springer MD - Last Filed: 06/28/21 06:34> NIH Stroke Scale Total NIH Stroke scale score: 3 <Spencer Torrez DO - Last Filed: 06/21/21 20:40> NIH Stroke Scale Level of Conciousness: Alert, keenly responsive Ask month/age: Answers both questions correctly. Open/close eyes, close hand: Performs both tasks correctly Best gaze horizontal: Normal Visual fuentes: No visual loss Facial palsy: Normal symetrical movement Left arm drift: Drifts down, not to bed Right arm drift: No drift for full 10 sec Left leg drift: Drifts down, not to bed Right leg drift: No drift for full 5 sec Limb ataxia: Absent Sensory on face/arms/legs: Mild to moderate sensory loss, can tell touch Best language: No aphasia, normal Dysarthria: Normal Extinction or inattention: No abnormality Total NIH Stroke scale score: 3 Course <Elsi Springer MD - Last Filed: 06/28/21 06:34> Orders Ordered: Acetaminophen (Acetaminophen 325 Mg Tablet) 650 mg PO Q6HR PRN PRN Reason: Fever/Mild Pain (1-3) Last Admin: 06/28/21 06:27 Dose: 650 mg Documented by: Admin: 06/26/21 10:32 Dose: 650 mg Documented by: ASHWIN Albuterol (Albuterol 2.5 Mg/3 Ml Neb (Adult)) 2.5 mg INH Q2H PRN PRN Reason: Shortness Of Breath Atorvastatin Calcium (Atorvastatin 20 Mg Tablet) 40 mg PO BEDTIME [facility] Last Admin: 06/27/21 20:36 Dose: 40 mg Documented by: Admin: 06/26/21 20:57 Dose: 40 mg Documented by: VARGHESE Cyclobenzaprine HCl (Cyclobenzaprine 10 Mg Tablet) 10 mg PO TID PRN PRN Reason: Pain, Moderate (4-6) Last Admin: 06/27/21 20:36 Dose: 10 mg Documented by: Admin: 06/27/21 13:34 Dose: 10 mg Documented by: Admin: 06/26/21 16:54 Dose: 10 mg Documented by: Admin: 06/25/21 05:51 Dose: 10 mg Documented by: Admin: 06/24/21 17:34 Dose: 10 mg Documented by: Admin: 06/24/21 10:09 Dose: 10 mg Documented by: Admin: 06/23/21 19:06 Dose: 10 mg Documented by: Admin: 06/23/21 08:15 Dose: 10 mg Documented by: Admin: 06/22/21 21:40 Dose: 10 mg Documented by: Admin: 06/22/21 10:23 Dose: 10 mg Documented by: Admin: 06/22/21 01:14 Dose: 10 mg Documented by: MERVIN Docusate Sodium (Docusate 100 Mg Capsule) 100 mg PO BID [facility] Last Admin: 06/27/21 20:36 Dose: 100 mg Documented by: Admin: 06/27/21 08:28 Dose: 100 mg Documented by: Admin: 06/26/21 20:58 Dose: 100 mg Documented by: Admin: 06/26/21 08:37 Dose: 100 mg Documented by: Admin: 06/25/21 23:06 Dose: 100 mg Documented by: Admin: 06/25/21 11:23 Dose: 100 mg Documented by: Admin: 06/24/21 21:18 Dose: Not Given Documented by: Admin: 06/24/21 10:09 Dose: 100 mg Documented by: Admin: 06/23/21 21:19 Dose: 100 mg Documented by: Admin: 06/23/21 08:15 Dose: 100 mg Documented by: Admin: 06/22/21 19:25 Dose: Not Given Documented by: Admin: 06/22/21 08:54 Dose: Not Given Documented by: TRAE Duloxetine HCl (Duloxetine 30 Mg Capsule) 30 mg PO BID [facility] Admin: 06/27/21 20:36 Dose: 30 mg Documented by: Admin: 06/27/21 08:29 Dose: 30 mg Documented by: Admin: 06/26/21 20:58 Dose: 30 mg Documented by: Admin: 06/26/21 08:37 Dose: 30 mg Documented by: Admin: 06/25/21 23:06 Dose: 30 mg Documented by: Admin: 06/25/21 11:28 Dose: 30 mg Documented by: Admin: 06/24/21 20:37 Dose: 30 mg Documented by: Admin: 06/24/21 10:09 Dose: 30 mg Documented by: Admin: 06/23/21 21:19 Dose: 30 mg Documented by: Admin: 06/23/21 08:16 Dose: 30 mg Documented by: Admin: 06/22/21 20:07 Dose: 30 mg Documented by: Admin: 06/22/21 08:54 Dose: 30 mg Documented by: Admin: 06/22/21 00:36 Dose: 30 mg Documented by: MERVIN Hydromorphone HCl (Hydromorphone 1 Mg Inj) 0.5 mg IV Q15MIN PRN PRN Reason: Pain, Metoprolol Succinate (Metoprolol Er 50 Mg Tablet) 50 mg PO DAILY [facility] Admin: 06/27/21 08:30 Dose: 50 mg Documented by: Admin: 06/26/21 08:38 Dose: 50 mg Documented by: Admin: 06/25/21 11:23 Dose: 50 mg Documented by: Admin: 06/24/21 10:10 Dose: 50 mg Documented by: Admin: 06/23/21 08:11 Dose: 50 mg Documented by: Admin: 06/22/21 08:55 Dose: 50 mg Documented by: TRAE Naloxone HCl (Naloxone 0.4 Mg/Ml Vial) 0.2 mg IV Q2MIN PRN PRN Reason: Opiate Reversal Ondansetron HCl (Ondansetron 4 Mg/2 Ml Inj) 4 mg IV Q8HR PRN PRN Reason: Nausea And Vomiting Oxycodone HCl (Oxycodone Ir 5 Mg Tablet) 5 mg PO Q4HR PRN PRN Reason: Pain, Moderate (4-6) Last Admin: 06/28/21 03:48 Dose: 5 mg Documented by: Admin: 06/27/21 22:51 Dose: 5 mg Documented by: Admin: 06/27/21 17:58 Dose: 5 mg Documented by: Admin: 06/27/21 13:35 Dose: 5 mg Documented by: Admin: 06/27/21 08:40 Dose: 5 mg Documented by: Admin: 06/27/21 01:58 Dose: 5 mg Documented by: Admin: 06/26/21 21:02 Dose: 5 mg Documented by: Admin: 06/26/21 16:40 Dose: 5 mg Documented by: Admin: 06/26/21 10:33 Dose: 5 mg Documented by: Admin: 06/26/21 03:31 Dose: 5 mg Documented by: Admin: 06/25/21 23:09 Dose: 5 mg Documented by: Admin: 06/25/21 18:24 Dose: 5 mg Documented by: Admin: 06/25/21 11:23 Dose: 5 mg Documented by: Admin: 06/25/21 05:55 Dose: 5 mg Documented by: Admin: 06/24/21 21:44 Dose: 5 mg Documented by: Admin: 06/24/21 17:34 Dose: 5 mg Documented by: Admin: 06/24/21 10:09 Dose: 5 mg Documented by: Admin: 06/24/21 05:18 Dose: 5 mg Documented by: Admin: 06/23/21 23:30 Dose: 5 mg Documented by: Admin: 06/23/21 19:09 Dose: 5 mg Documented by: Admin: 06/23/21 12:43 Dose: 5 mg Documented by: Admin: 06/23/21 08:11 Dose: 5 mg Documented by: Admin: 06/22/21 19:29 Dose: 5 mg Documented by: Admin: 06/22/21 14:18 Dose: 5 mg Documented by: Admin: 06/22/21 08:53 Dose: 5 mg Documented by: Admin: 06/22/21 05:20 Dose: 5 mg Documented by: Admin: 06/21/21 23:47 Dose: 5 mg Documented by: MERVIN Pantoprazole Sodium (Pantoprazole 40 Mg Vial) 40 mg IV BID [facility] Admin: 06/27/21 20:40 Dose: Not Given Documented by: Admin: 06/27/21 08:32 Dose: Not Given Documented by: Admin: 06/26/21 20:57 Dose: 40 mg Documented by: Admin: 06/26/21 08:38 Dose: 40 mg Documented by: Admin: 06/25/21 21:59 Dose: Not Given Documented by: Admin: 06/25/21 11:24 Dose: 40 mg Documented by: Admin: 06/24/21 20:37 Dose: 40 mg Documented by: Admin: 06/24/21 10:09 Dose: 40 mg Documented by: ANA Pramipexole Dihydrochloride (Pramipexole 0.25 Mg Tablet) 0.125 mg PO BID [facility] Admin: 06/27/21 20:36 Dose: 0.125 mg Documented by: Admin: 06/27/21 08:28 Dose: 0.125 mg Documented by: Admin: 06/26/21 20:57 Dose: 0.125 mg Documented by: Admin: 06/26/21 08:44 Dose: 0.125 mg Documented by: Admin: 06/25/21 23:02 Dose: 0.125 mg Documented by: Admin: 06/25/21 11:25 Dose: 0.125 mg Documented by: Admin: 06/24/21 20:37 Dose: 0.125 mg Documented by: Admin: 06/24/21 10:50 Dose: 0.125 mg Documented by: Admin: 06/23/21 21:20 Dose: 0.125 mg Documented by: Admin: 06/23/21 08:16 Dose: 0.125 mg Documented by: Admin: 06/22/21 19:29 Dose: 0.125 mg Documented by: Admin: 06/22/21 08:56 Dose: 0.125 mg Documented by: TRAE Pregabalin (Pregabalin 75 Mg Capsule) 150 mg PO DAILY [facility] Admin: 06/27/21 08:29 Dose: 150 mg Documented by: Admin: 06/26/21 08:38 Dose: 150 mg Documented by: Admin: 06/25/21 11:23 Dose: 150 mg Documented by: Admin: 06/24/21 10:10 Dose: 150 mg Documented by: Admin: 06/23/21 08:12 Dose: 150 mg Documented by: Admin: 06/22/21 08:57 Dose: 150 mg Documented by: TRAE Promethazine HCl (Promethazine 25 Mg Tablet) 25 mg PO Q6H PRN PRN Reason: Nausea Sodium Chloride (Sodium Chloride 0.9% Flush) 10 ml IV PRN PRN PRN Reason: Flush Sodium Chloride (Sodium Chloride 0.9% Flush) 10 ml IV BID [facility] Admin: 06/27/21 20:37 Dose: 10 ml Documented by: Admin: 06/27/21 08:33 Dose: Not Given Documented by: Admin: 06/26/21 20:58 Dose: 10 ml Documented by: Admin: 06/26/21 08:30 Dose: 10 ml Documented by: Admin: 06/25/21 21:00 Dose: 10 ml Documented by: Admin: 06/25/21 11:24 Dose: 10 ml Documented by: Admin: 06/24/21 20:37 Dose: 10 ml Documented by: Admin: 06/24/21 10:34 Dose: 10 ml Documented by: Admin: 06/23/21 22:32 Dose: Not Given Documented by: Admin: 06/23/21 08:29 Dose: Not Given Documented by: Admin: 06/22/21 19:24 Dose: Not Given Documented by: Admin: 06/22/21 08:58 Dose: 10 ml Documented by: TRAE Trazodone HCl (Trazodone 100 Mg Tablet) 200 mg PO BEDTIME [facility] Last Admin: 06/27/21 20:36 Dose: 200 mg Documented by: Admin: 06/26/21 20:57 Dose: 200 mg Documented by: Admin: 06/25/21 23:02 Dose: 200 mg Documented by: Admin: 06/24/21 21:44 Dose: 200 mg Documented by: Admin: 06/23/21 21:19 Dose: 200 mg Documented by: Admin: 06/22/21 20:07 Dose: 200 mg Documented by: Admin: 06/21/21 23:48 Dose: 200 mg Documented by: MERVIN Discontinued Medications Acetaminophen (Acetaminophen 325 Mg Tablet) 650 mg PO NOW ONE Stop: 06/24/21 08:03 Last Admin: 06/24/21 19:40 Dose: Not Given Documented by: BLADIMIR Acetaminophen (Acetaminophen 325 Mg Tablet) 650 mg PO NOW ONE Stop: 06/25/21 05:51 Last Admin: 06/25/21 17:04 Dose: Not Given Documented by: CORBIN Albuterol (Albuterol 2.5 Mg/3 Ml Neb (Adult)) 2.5 mg INH Q4HRWA [facility] Last Admin: 06/22/21 17:46 Dose: Not Given Documented by: MARIA G Admin: 06/22/21 12:39 Dose: Not Given Documented by: MARIA G Admin: 06/22/21 08:53 Dose: Not Given Documented by: MARIA G Aspirin (Aspirin Ec 81 Mg Tablet) 81 mg PO DAILY [facility] Aspirin (Aspirin Ec 325 Mg Tablet) 325 mg PO DAILY [facility] Last Admin: 06/23/21 08:27 Dose: Not Given Documented by: Admin: 06/22/21 08:54 Dose: 325 mg Documented by: TRAE Aspirin (Aspirin Ec 325 Mg Tablet) 325 mg PO BEDTIME [facility] Last Admin: 06/24/21 00:35 Dose: Not Given Documented by: RENETTA Budesonide (Budesonide 0.5 Mg/2 Ml Neb) 0.5 mg INH RTBID [facility] Last Admin: 06/22/21 08:53 Dose: Not Given Documented by: MARIA G Diphenhydramine HCl (Diphenhydramine 25 Mg Tablet) 25 mg PO NOW ONE Stop: 06/24/21 08:03 Last Admin: 06/24/21 19:40 Dose: Not Given Documented by: BLADIMIR Diphenhydramine HCl (Diphenhydramine 25 Mg Tablet) 25 mg PO NOW ONE Stop: 06/25/21 05:51 Last Admin: 06/25/21 17:04 Dose: Not Given Documented by: CORBIN Diphenhydramine HCl (Diphenhydramine 50 Mg/Ml Vial) 25 mg IV NOW ONE Stop: 06/25/21 22:26 Last Admin: 06/25/21 22:33 Dose: 25 mg Documented by: ESTHER Duloxetine HCl (Duloxetine 30 Mg Capsule) 30 mg PO SEE INSTRUCTIONS [facility] Enoxaparin Sodium (Enoxaparin 40 Mg/0.4 Ml Syringe) 40 mg SUBCUT DAILY [facility] Last Admin: 06/23/21 08:16 Dose: 40 mg Documented by: Admin: 06/22/21 08:58 Dose: 40 mg Documented by: TRAE Fentanyl (Fentanyl 250 Mcg/5 Ml Inj) 250 mcg IV INTRA-OP ONE Stop: 06/25/21 08:44 Last Admin: 06/25/21 08:58 Dose: 100 mcg Documented by: LIZ Furosemide (Furosemide 20 Mg/2 Ml Vial) 20 mg IV NOW ONE Stop: 06/24/21 08:03 Last Admin: 06/24/21 19:40 Dose: Not Given Documented by: BLADIMIR Furosemide (Furosemide 20 Mg/2 Ml Vial) 20 mg IV NOW ONE Stop: 06/25/21 05:51 Last Admin: 06/25/21 17:04 Dose: Not Given Documented by: CORBIN Furosemide (Furosemide 20 Mg/2 Ml Vial) 20 mg IV NOW ONE Stop: 06/26/21 06:56 Last Admin: 06/26/21 08:31 Dose: 20 mg Documented by: ASHWIN Hydrochlorothiazide (Hydrochlorothiazide 25 Mg Tablet) 25 mg PO DAILY [facility] Last Admin: 06/26/21 08:37 Dose: 25 mg Documented by: Admin: 06/25/21 11:24 Dose: 25 mg Documented by: Admin: 06/24/21 10:09 Dose: 25 mg Documented by: Admin: 06/23/21 08:16 Dose: 25 mg Documented by: Admin: 06/22/21 08:55 Dose: 25 mg Documented by: TRAE Hydromorphone HCl (Hydromorphone 0.5 Mg Inj) 0.5 mg IV Q15MIN PRN PRN Reason: Pain, Last Admin: 06/21/21 20:06 Dose: 0.5 mg Documented by: SUSANNA Sodium Chloride (Normal Saline 0.45%) 1,000 mls @ 100 mls/hr IV CONT [facility] Last Admin: 06/21/21 23:55 Dose: 100 mls/hr Documented by: MERVIN Potassium Chloride/Sodium Chloride (Ns With Kcl 20 Meq) 1,000 mls @ 125 mls/hr IV CONT [facility] Last Admin: 06/23/21 19:06 Dose: 125 mls/hr Documented by: Infusion: 06/23/21 16:15 Dose: 125 mls/hr Documented by: Admin: 06/23/21 08:15 Dose: 125 mls/hr Documented by: Infusion: 06/23/21 07:35 Dose: 125 mls/hr Documented by: Admin: 06/22/21 23:35 Dose: 125 mls/hr Documented by: Infusion: 06/22/21 23:35 Dose: 125 mls/hr Documented by: Admin: 06/22/21 15:37 Dose: 125 mls/hr Documented by: Infusion: 06/22/21 09:14 Dose: 125 mls/hr Documented by: Admin: 06/22/21 01:14 Dose: 125 mls/hr Documented by: MERVIN Iron Sucrose 200 mg/ Sodium (Chloride) 110 mls @ 220 mls/hr IV NOW ONE Stop: 06/23/21 21:03 Last Admin: 06/23/21 22:32 Dose: Not Given Documented by: RENETTA Lactated Ringer's (Lactated Ringers) 1,000 mls @ 42 mls/hr IV NOW ONE Stop: 06/26/21 08:16 Last Infusion: 06/25/21 09:49 Dose: 0 mls/hr Documented by: Admin: 06/25/21 08:29 Dose: 42 mls/hr Documented by: RICHI Iron Sucrose 300 mg/ Sodium (Chloride) 265 mls @ 176.667 mls/hr IV Q24H [facility] Stop: 06/27/21 23:59 Last Admin: 06/27/21 12:04 Dose: Not Given Documented by: Admin: 06/26/21 21:52 Dose: Not Given Documented by: Infusion: 06/25/21 18:15 Dose: 176.667 mls/hr Documented by: Admin: 06/25/21 16:45 Dose: 176.667 mls/hr Documented by: CORBIN Lidocaine HCl (Lidocaine 4% Soln 50 Ml) 20 ml TOP NOW ONE Stop: 06/25/21 08:57 Last Admin: 06/25/21 08:57 Dose: 20 ml Documented by: LIZ Lorazepam (Lorazepam 1 Mg Tablet) 1 mg PO NOW ONE Stop: 06/24/21 11:19 Last Admin: 06/24/21 12:21 Dose: Not Given Documented by: ANA Metoprolol Succinate (Metoprolol Er 50 Mg Tablet) 100 mg PO DAILY [facility] Metoprolol Succinate (Metoprolol Er 50 Mg Tablet) 100 mg PO DAILY [facility] Midazolam HCl (Midazolam 5 Mg/5 Ml Vial) 5 mg IV INTRA-OP ONE Stop: 06/25/21 08:44 Last Admin: 06/25/21 08:58 Dose: 4 mg Documented by: LIZ Pantoprazole Sodium (Pantoprazole 40 Mg Vial) 40 mg IV DAILY [facility] Last Admin: 06/23/21 08:11 Dose: 40 mg Documented by: Admin: 06/22/21 08:55 Dose: 40 mg Documented by: TRAE Potassium Chloride (Potassium Chloride 20 Meq Tab) 40 meq PO NOW ONE Stop: 06/22/21 06:58 Last Admin: 06/22/21 08:54 Dose: 40 meq Documented by: TRAE Potassium Chloride (Potassium Chloride 20 Meq Tab) 40 meq PO Q6H [facility] Stop: 06/22/21 15:31 Last Admin: 06/22/21 15:38 Dose: 40 meq Documented by: Admin: 06/22/21 09:41 Dose: Not Given Documented by: TRAE Pramipexole Dihydrochloride (Pramipexole 0.125 Mg Tablet) 0.125 mg PO BID [facility] Last Admin: 06/22/21 00:27 Dose: Not Given Documented by: MERVIN Pravastatin Sodium (Pravastatin 20 Mg Tablet) 20 mg PO DAILY [facility] Last Admin: 06/23/21 08:26 Dose: Not Given Documented by: Admin: 06/22/21 09:23 Dose: Not Given Documented by: TRAE Pravastatin Sodium (Pravastatin 20 Mg Tablet) 20 mg PO BEDTIME [facility] Pravastatin Sodium (Pravastatin 20 Mg Tablet) 20 mg PO BEDTIME [facility] Last Admin: 06/25/21 23:02 Dose: 20 mg Documented by: Admin: 06/24/21 20:38 Dose: 20 mg Documented by: Admin: 06/23/21 21:19 Dose: 20 mg Documented by: RENETTA Pregabalin (Pregabalin 75 Mg Capsule) 150 mg PO DAILY [facility] Last Admin: 06/23/21 09:27 Dose: Not Given Documented by: Admin: 06/22/21 09:05 Dose: Not Given Documented by: TRAE Vitamin D (Cholecalciferol (Vitamin D3) 5,000 Unit Tablet) 50,000 unit PO DAILY ONE Stop: 06/25/21 18:01 Last Admin: 06/25/21 18:24 Dose: 50,000 unit Documented by: CORBIN Vital Signs Vital signs: Vital Signs - 8 hr 06/21/21 17:33 06/21/21 17:34 06/21/21 17:35 Temperature 98.1 F Pulse Rate 95 H 93 H 96 H Respiratory Rate 17 20 16 Blood Pressure 136/78 136/78 Pulse Oximetry 95 100 97 06/21/21 18:00 06/21/21 18:30 06/21/21 19:00 Temperature Pulse Rate 82 77 88 Respiratory Rate 19 15 19 Blood Pressure Pulse Oximetry 99 100 100 <Spencer Torrez, - Last Filed: 06/21/21 20:40> Course Course Narrative: 1800 -patient received in sign-out from Dr. Springer. I performed an independent history and physical exam. Images and labs have been reviewed. She has left- sided focal weakness, likely contributing to her falls. She will require hospitalization for ongoing evaluation Orders Ordered: Acetaminophen (Acetaminophen 325 Mg Tablet) 650 mg PO Q6HR PRN PRN Reason: Fever/Mild Pain (1-3) Last Admin: 06/28/21 06:27 Dose: 650 mg Documented by: Admin: 06/26/21 10:32 Dose: 650 mg Documented by: ASHWIN Albuterol (Albuterol 2.5 Mg/3 Ml Neb (Adult)) 2.5 mg INH Q2H PRN PRN Reason: Shortness Of Breath Atorvastatin Calcium (Atorvastatin 20 Mg Tablet) 40 mg PO BEDTIME [facility] Last Admin: 06/27/21 20:36 Dose: 40 mg Documented by: Admin: 06/26/21 20:57 Dose: 40 mg Documented by: KKEMILIET Cyclobenzaprine HCl (Cyclobenzaprine 10 Mg Tablet) 10 mg PO TID PRN PRN Reason: Pain, Moderate (4-6) Last Admin: 06/27/21 20:36 Dose: 10 mg Documented by: Admin: 06/27/21 13:34 Dose: 10 mg Documented by: Admin: 06/26/21 16:54 Dose: 10 mg Documented by: Admin: 06/25/21 05:51 Dose: 10 mg Documented by: Admin: 06/24/21 17:34 Dose: 10 mg Documented by: Admin: 06/24/21 10:09 Dose: 10 mg Documented by: Admin: 06/23/21 19:06 Dose: 10 mg Documented by: Admin: 06/23/21 08:15 Dose: 10 mg Documented by: Admin: 06/22/21 21:40 Dose: 10 mg Documented by: Admin: 06/22/21 10:23 Dose: 10 mg Documented by: Admin: 06/22/21 01:14 Dose: 10 mg Documented by: MERVIN Docusate Sodium (Docusate 100 Mg Capsule) 100 mg PO BID [facility] Admin: 06/27/21 20:36 Dose: 100 mg Documented by: Admin: 06/27/21 08:28 Dose: 100 mg Documented by: Admin: 06/26/21 20:58 Dose: 100 mg Documented by: Admin: 06/26/21 08:37 Dose: 100 mg Documented by: Admin: 06/25/21 23:06 Dose: 100 mg Documented by: Admin: 06/25/21 11:23 Dose: 100 mg Documented by: Admin: 06/24/21 21:18 Dose: Not Given Documented by: Admin: 06/24/21 10:09 Dose: 100 mg Documented by: Admin: 06/23/21 21:19 Dose: 100 mg Documented by: Admin: 06/23/21 08:15 Dose: 100 mg Documented by: Admin: 06/22/21 19:25 Dose: Not Given Documented by: Admin: 06/22/21 08:54 Dose: Not Given Documented by: TRAE Duloxetine HCl (Duloxetine 30 Mg Capsule) 30 mg PO BID [facility] Admin: 06/27/21 20:36 Dose: 30 mg Documented by: Admin: 06/27/21 08:29 Dose: 30 mg Documented by: Admin: 06/26/21 20:58 Dose: 30 mg Documented by: Admin: 06/26/21 08:37 Dose: 30 mg Documented by: Admin: 06/25/21 23:06 Dose: 30 mg Documented by: Admin: 06/25/21 11:28 Dose: 30 mg Documented by: Admin: 06/24/21 20:37 Dose: 30 mg Documented by: Admin: 06/24/21 10:09 Dose: 30 mg Documented by: Admin: 06/23/21 21:19 Dose: 30 mg Documented by: Admin: 06/23/21 08:16 Dose: 30 mg Documented by: Admin: 06/22/21 20:07 Dose: 30 mg Documented by: Admin: 06/22/21 08:54 Dose: 30 mg Documented by: Admin: 06/22/21 00:36 Dose: 30 mg Documented by: MERVIN Hydromorphone HCl (Hydromorphone 1 Mg Inj) 0.5 mg IV Q15MIN PRN PRN Reason: Pain, Metoprolol Succinate (Metoprolol Er 50 Mg Tablet) 50 mg PO DAILY GRAHAM Last Admin: 06/27/21 08:30 Dose: 50 mg Documented by: Admin: 06/26/21 08:38 Dose: 50 mg Documented by: Admin: 06/25/21 11:23 Dose: 50 mg Documented by: Admin: 06/24/21 10:10 Dose: 50 mg Documented by: Admin: 06/23/21 08:11 Dose: 50 mg Documented by: Admin: 06/22/21 08:55 Dose: 50 mg Documented by: TRAE Naloxone HCl (Naloxone 0.4 Mg/Ml Vial) 0.2 mg IV Q2MIN PRN PRN Reason: Opiate Reversal Ondansetron HCl (Ondansetron 4 Mg/2 Ml Inj) 4 mg IV Q8HR PRN PRN Reason: Nausea And Vomiting Oxycodone HCl (Oxycodone Ir 5 Mg Tablet) 5 mg PO Q4HR PRN PRN Reason: Pain, Moderate (4-6) Last Admin: 06/28/21 03:48 Dose: 5 mg Documented by: Admin: 06/27/21 22:51 Dose: 5 mg Documented by: Admin: 06/27/21 17:58 Dose: 5 mg Documented by: Admin: 06/27/21 13:35 Dose: 5 mg Documented by: Admin: 06/27/21 08:40 Dose: 5 mg Documented by: Admin: 06/27/21 01:58 Dose: 5 mg Documented by: Admin: 06/26/21 21:02 Dose: 5 mg Documented by: Admin: 06/26/21 16:40 Dose: 5 mg Documented by: Admin: 06/26/21 10:33 Dose: 5 mg Documented by: Admin: 06/26/21 03:31 Dose: 5 mg Documented by: Admin: 06/25/21 23:09 Dose: 5 mg Documented by: Admin: 06/25/21 18:24 Dose: 5 mg Documented by: Admin: 06/25/21 11:23 Dose: 5 mg Documented by: Admin: 06/25/21 05:55 Dose: 5 mg Documented by: Admin: 06/24/21 21:44 Dose: 5 mg Documented by: Admin: 06/24/21 17:34 Dose: 5 mg Documented by: Admin: 06/24/21 10:09 Dose: 5 mg Documented by: Admin: 06/24/21 05:18 Dose: 5 mg Documented by: Admin: 06/23/21 23:30 Dose: 5 mg Documented by: Admin: 06/23/21 19:09 Dose: 5 mg Documented by: Admin: 06/23/21 12:43 Dose: 5 mg Documented by: Admin: 06/23/21 08:11 Dose: 5 mg Documented by: Admin: 06/22/21 19:29 Dose: 5 mg Documented by: Admin: 06/22/21 14:18 Dose: 5 mg Documented by: Admin: 06/22/21 08:53 Dose: 5 mg Documented by: Admin: 06/22/21 05:20 Dose: 5 mg Documented by: Admin: 06/21/21 23:47 Dose: 5 mg Documented by: MERVIN Pantoprazole Sodium (Pantoprazole 40 Mg Vial) 40 mg IV BID [facility] Last Admin: 06/27/21 20:40 Dose: Not Given Documented by: Admin: 06/27/21 08:32 Dose: Not Given Documented by: Admin: 06/26/21 20:57 Dose: 40 mg Documented by: Admin: 06/26/21 08:38 Dose: 40 mg Documented by: Admin: 06/25/21 21:59 Dose: Not Given Documented by: Admin: 06/25/21 11:24 Dose: 40 mg Documented by: Admin: 06/24/21 20:37 Dose: 40 mg Documented by: Admin: 06/24/21 10:09 Dose: 40 mg Documented by: ANA Pramipexole Dihydrochloride (Pramipexole 0.25 Mg Tablet) 0.125 mg PO BID [facility] Admin: 06/27/21 20:36 Dose: 0.125 mg Documented by: Admin: 06/27/21 08:28 Dose: 0.125 mg Documented by: Admin: 06/26/21 20:57 Dose: 0.125 mg Documented by: Admin: 06/26/21 08:44 Dose: 0.125 mg Documented by: Admin: 06/25/21 23:02 Dose: 0.125 mg Documented by: Admin: 06/25/21 11:25 Dose: 0.125 mg Documented by: Admin: 06/24/21 20:37 Dose: 0.125 mg Documented by: Admin: 06/24/21 10:50 Dose: 0.125 mg Documented by: Admin: 06/23/21 21:20 Dose: 0.125 mg Documented by: Admin: 06/23/21 08:16 Dose: 0.125 mg Documented by: Admin: 06/22/21 19:29 Dose: 0.125 mg Documented by: Admin: 06/22/21 08:56 Dose: 0.125 mg Documented by: TRAE Pregabalin (Pregabalin 75 Mg Capsule) 150 mg PO DAILY [facility] Admin: 06/27/21 08:29 Dose: 150 mg Documented by: Admin: 06/26/21 08:38 Dose: 150 mg Documented by: Admin: 06/25/21 11:23 Dose: 150 mg Documented by: Admin: 06/24/21 10:10 Dose: 150 mg Documented by: Admin: 06/23/21 08:12 Dose: 150 mg Documented by: Admin: 06/22/21 08:57 Dose: 150 mg Documented by: TRAE Promethazine HCl (Promethazine 25 Mg Tablet) 25 mg PO Q6H PRN PRN Reason: Nausea Sodium Chloride (Sodium Chloride 0.9% Flush) 10 ml IV PRN PRN PRN Reason: Flush Sodium Chloride (Sodium Chloride 0.9% Flush) 10 ml IV BID [facility] Last Admin: 06/27/21 20:37 Dose: 10 ml Documented by: Admin: 06/27/21 08:33 Dose: Not Given Documented by: Admin: 06/26/21 20:58 Dose: 10 ml Documented by: Admin: 06/26/21 08:30 Dose: 10 ml Documented by: Admin: 06/25/21 21:00 Dose: 10 ml Documented by: Admin: 06/25/21 11:24 Dose: 10 ml Documented by: Admin: 06/24/21 20:37 Dose: 10 ml Documented by: Admin: 06/24/21 10:34 Dose: 10 ml Documented by: Admin: 06/23/21 22:32 Dose: Not Given Documented by: Admin: 06/23/21 08:29 Dose: Not Given Documented by: Admin: 06/22/21 19:24 Dose: Not Given Documented by: Admin: 06/22/21 08:58 Dose: 10 ml Documented by: TRAE Trazodone HCl (Trazodone 100 Mg Tablet) 200 mg PO BEDTIME [facility] Last Admin: 06/27/21 20:36 Dose: 200 mg Documented by: Admin: 06/26/21 20:57 Dose: 200 mg Documented by: Admin: 06/25/21 23:02 Dose: 200 mg Documented by: Admin: 06/24/21 21:44 Dose: 200 mg Documented by: Admin: 06/23/21 21:19 Dose: 200 mg Documented by: Admin: 06/22/21 20:07 Dose: 200 mg Documented by: Admin: 06/21/21 23:48 Dose: 200 mg Documented by: MERVIN Discontinued Medications Acetaminophen (Acetaminophen 325 Mg Tablet) 650 mg PO NOW ONE Stop: 06/24/21 08:03 Last Admin: 06/24/21 19:40 Dose: Not Given Documented by: BLADIMIR Acetaminophen (Acetaminophen 325 Mg Tablet) 650 mg PO NOW ONE Stop: 06/25/21 05:51 Last Admin: 06/25/21 17:04 Dose: Not Given Documented by: CORBIN Albuterol (Albuterol 2.5 Mg/3 Ml Neb (Adult)) 2.5 mg INH Q4HRWA [facility] Last Admin: 06/22/21 17:46 Dose: Not Given Documented by: MARIA G Admin: 06/22/21 12:39 Dose: Not Given Documented by: MARIA G Admin: 06/22/21 08:53 Dose: Not Given Documented by: MARIA G Aspirin (Aspirin Ec 81 Mg Tablet) 81 mg PO DAILY [facility] Aspirin (Aspirin Ec 325 Mg Tablet) 325 mg PO DAILY [facility] Last Admin: 06/23/21 08:27 Dose: Not Given Documented by: Admin: 06/22/21 08:54 Dose: 325 mg Documented by: TRAE Aspirin (Aspirin Ec 325 Mg Tablet) 325 mg PO BEDTIME [facility] Last Admin: 06/24/21 00:35 Dose: Not Given Documented by: RENETTA Budesonide (Budesonide 0.5 Mg/2 Ml Neb) 0.5 mg INH RTBID [facility] Last Admin: 06/22/21 08:53 Dose: Not Given Documented by: MARIA G Diphenhydramine HCl (Diphenhydramine 25 Mg Tablet) 25 mg PO NOW ONE Stop: 06/24/21 08:03 Last Admin: 06/24/21 19:40 Dose: Not Given Documented by: BLADIMIR Diphenhydramine HCl (Diphenhydramine 25 Mg Tablet) 25 mg PO NOW ONE Stop: 06/25/21 05:51 Last Admin: 06/25/21 17:04 Dose: Not Given Documented by: CORBIN Diphenhydramine HCl (Diphenhydramine 50 Mg/Ml Vial) 25 mg IV NOW ONE Stop: 06/25/21 22:26 Last Admin: 06/25/21 22:33 Dose: 25 mg Documented by: ESTHER Duloxetine HCl (Duloxetine 30 Mg Capsule) 30 mg PO SEE INSTRUCTIONS [facility] Enoxaparin Sodium (Enoxaparin 40 Mg/0.4 Ml Syringe) 40 mg SUBCUT DAILY [facility] Last Admin: 06/23/21 08:16 Dose: 40 mg Documented by: Admin: 06/22/21 08:58 Dose: 40 mg Documented by: TRAE Fentanyl (Fentanyl 250 Mcg/5 Ml Inj) 250 mcg IV INTRA-OP ONE Stop: 06/25/21 08:44 Last Admin: 06/25/21 08:58 Dose: 100 mcg Documented by: LIZ Furosemide (Furosemide 20 Mg/2 Ml Vial) 20 mg IV NOW ONE Stop: 06/24/21 08:03 Last Admin: 06/24/21 19:40 Dose: Not Given Documented by: BLADIMIR Furosemide (Furosemide 20 Mg/2 Ml Vial) 20 mg IV NOW ONE Stop: 06/25/21 05:51 Last Admin: 06/25/21 17:04 Dose: Not Given Documented by: CORBIN Furosemide (Furosemide 20 Mg/2 Ml Vial) 20 mg IV NOW ONE Stop: 06/26/21 06:56 Last Admin: 06/26/21 08:31 Dose: 20 mg Documented by: ASHWIN Hydrochlorothiazide (Hydrochlorothiazide 25 Mg Tablet) 25 mg PO DAILY [facility] Last Admin: 06/26/21 08:37 Dose: 25 mg Documented by: Admin: 06/25/21 11:24 Dose: 25 mg Documented by: Admin: 06/24/21 10:09 Dose: 25 mg Documented by: Admin: 06/23/21 08:16 Dose: 25 mg Documented by: Admin: 06/22/21 08:55 Dose: 25 mg Documented by: TRAE Hydromorphone HCl (Hydromorphone 0.5 Mg Inj) 0.5 mg IV Q15MIN PRN PRN Reason: Pain, Last Admin: 06/21/21 20:06 Dose: 0.5 mg Documented by: SUSANNA Sodium Chloride (Normal Saline 0.45%) 1,000 mls @ 100 mls/hr IV CONT [facility] Last Admin: 06/21/21 23:55 Dose: 100 mls/hr Documented by: MERVIN Potassium Chloride/Sodium Chloride (Ns With Kcl 20 Meq) 1,000 mls @ 125 mls/hr IV CONT [facility] Last Admin: 06/23/21 19:06 Dose: 125 mls/hr Documented by: Infusion: 06/23/21 16:15 Dose: 125 mls/hr Documented by: Admin: 06/23/21 08:15 Dose: 125 mls/hr Documented by: Infusion: 06/23/21 07:35 Dose: 125 mls/hr Documented by: Admin: 06/22/21 23:35 Dose: 125 mls/hr Documented by: Infusion: 06/22/21 23:35 Dose: 125 mls/hr Documented by: Admin: 06/22/21 15:37 Dose: 125 mls/hr Documented by: Infusion: 06/22/21 09:14 Dose: 125 mls/hr Documented by: Admin: 06/22/21 01:14 Dose: 125 mls/hr Documented by: MERVIN Iron Sucrose 200 mg/ Sodium (Chloride) 110 mls @ 220 mls/hr IV NOW ONE Stop: 06/23/21 21:03 Last Admin: 06/23/21 22:32 Dose: Not Given Documented by: CTRKAIN Lactated Ringer's (Lactated Ringers) 1,000 mls @ 42 mls/hr IV NOW ONE Stop: 06/26/21 08:16 Last Infusion: 06/25/21 09:49 Dose: 0 mls/hr Documented by: Admin: 06/25/21 08:29 Dose: 42 mls/hr Documented by: RICHI Iron Sucrose 300 mg/ Sodium (Chloride) 265 mls @ 176.667 mls/hr IV Q24H [facility] Stop: 06/27/21 23:59 Last Admin: 06/27/21 12:04 Dose: Not Given Documented by: Admin: 06/26/21 21:52 Dose: Not Given Documented by: Infusion: 06/25/21 18:15 Dose: 176.667 mls/hr Documented by: Admin: 06/25/21 16:45 Dose: 176.667 mls/hr Documented by: CORBIN Lidocaine HCl (Lidocaine 4% Soln 50 Ml) 20 ml TOP NOW ONE Stop: 06/25/21 08:57 Last Admin: 06/25/21 08:57 Dose: 20 ml Documented by: LIZ Lorazepam (Lorazepam 1 Mg Tablet) 1 mg PO NOW ONE Stop: 06/24/21 11:19 Last Admin: 06/24/21 12:21 Dose: Not Given Documented by: CWOOD Metoprolol Succinate (Metoprolol Er 50 Mg Tablet) 100 mg PO DAILY [facility] Metoprolol Succinate (Metoprolol Er 50 Mg Tablet) 100 mg PO DAILY [facility] Midazolam HCl (Midazolam 5 Mg/5 Ml Vial) 5 mg IV INTRA-OP ONE Stop: 06/25/21 08:44 Last Admin: 06/25/21 08:58 Dose: 4 mg Documented by: LIZ Pantoprazole Sodium (Pantoprazole 40 Mg Vial) 40 mg IV DAILY [facility] Last Admin: 06/23/21 08:11 Dose: 40 mg Documented by: Admin: 06/22/21 08:55 Dose: 40 mg Documented by: TRAE Potassium Chloride (Potassium Chloride 20 Meq Tab) 40 meq PO NOW ONE Stop: 06/22/21 06:58 Last Admin: 06/22/21 08:54 Dose: 40 meq Documented by: TRAE Potassium Chloride (Potassium Chloride 20 Meq Tab) 40 meq PO Q6H [facility] Stop: 06/22/21 15:31 Last Admin: 06/22/21 15:38 Dose: 40 meq Documented by: Admin: 06/22/21 09:41 Dose: Not Given Documented by: TRAE Pramipexole Dihydrochloride (Pramipexole 0.125 Mg Tablet) 0.125 mg PO BID [facility] Last Admin: 06/22/21 00:27 Dose: Not Given Documented by: MERVIN Pravastatin Sodium (Pravastatin 20 Mg Tablet) 20 mg PO DAILY [facility] Last Admin: 06/23/21 08:26 Dose: Not Given Documented by: Admin: 06/22/21 09:23 Dose: Not Given Documented by: TRAE Pravastatin Sodium (Pravastatin 20 Mg Tablet) 20 mg PO BEDTIME [facility] Pravastatin Sodium (Pravastatin 20 Mg Tablet) 20 mg PO BEDTIME [facility] Last Admin: 06/25/21 23:02 Dose: 20 mg Documented by: Admin: 06/24/21 20:38 Dose: 20 mg Documented by: Admin: 06/23/21 21:19 Dose: 20 mg Documented by: RENETTA Pregabalin (Pregabalin 75 Mg Capsule) 150 mg PO DAILY [facility] Last Admin: 06/23/21 09:27 Dose: Not Given Documented by: Admin: 06/22/21 09:05 Dose: Not Given Documented by: TRAE Vitamin D (Cholecalciferol (Vitamin D3) 5,000 Unit Tablet) 50,000 unit PO DAILY ONE Stop: 06/25/21 18:01 Last Admin: 06/25/21 18:24 Dose: 50,000 unit Documented by: LOGK Vital Signs Vital signs: Vital Signs - 8 hr 06/21/21 17:33 06/21/21 17:34 06/21/21 17:35 Temperature 98.1 F Pulse Rate 95 H 93 H 96 H Respiratory Rate 17 20 16 Blood Pressure 136/78 136/78 Pulse Oximetry 95 100 97 06/21/21 18:00 06/21/21 18:30 06/21/21 19:00 Temperature Pulse Rate 82 77 88 Respiratory Rate 19 15 19 Blood Pressure Pulse Oximetry 99 100 100 Medical Decision Making <Elsi Springer MD - Last Filed: 06/28/21 06:34> Lab Data Result diagrams: 06/28/21 05:05 06/28/21 05:05 Labs: Lab Results 06/21/21 06/21/21 06/21/21 Range/Units 17:33 17:33 19:10 WBC 6.6 (4.5-11.0) X10^3/uL RBC 4.65 (4.0-5.2) X10^6/uL Hgb 8.7 L (12.0-16.0) g/dL Hct 27.4 L (36-46) % MCV 59.0 L (80-100) fL MCH 18.6 L (26-34) PG MCHC 31.5 (30-36) % RDW 19.4 H (11.6-14.8) % Plt Count 333 (150-400) X10^3/uL Neut % (Auto) 76.6 H (50-75) % Lymph % (Auto) 16.6 L (25-40) % [place] % (Auto) 4.8 (3-14) % Eos % (Auto) 1.6 L (2-4) % Baso % (Auto) 0.4 (0-2) % Neut # (Auto) 5100 (5474-6646) /uL Lymph # (Auto) 1100 (0547-6638) /uL [place] # (Auto) 300 (0-900) /uL Eos # (Auto) 100 (0-450) /uL Baso # (Auto) 0 (0-100) /uL RBC Morphology See below Hypochromasia 3+ H Microcytosis 3+ H Sodium 130 L (137-145) mmol/L Potassium 3.3 L (3.4-5.1) mmol/L Chloride 96 L (98-107) mmol/L Carbon Dioxide 27 (22-32) mmol/L BUN 6 L (7-17) mg/dL Creatinine 0.46 L (0.52-1.04) mg/dL Estimated GFR > 60.0 (>60) mL/min BUN/Creatinine Ratio 13.0 (6-22) Glucose 128 H (80-110) mg/dL Calcium 9.2 (8.4-10.2) mg/dL Magnesium 2.1 (1.6-2.3) mg/dL Total Bilirubin 0.6 (0.2-1.3) mg/dL AST 47 H (14-36) IU/L ALT 15 (<35) IU/L Alkaline Phosphatase 95 (38-126) U/L Troponin I < 0.012 (0.01-0.034) ng/mL Total Protein 7.3 (6.3-8.2) g/dL Albumin 4.3 (3.5-5.0) g/dL Globulin 3.0 (1.7-4.1) g/dL Albumin/Globulin Ratio 1.4 (1.0-2.8) Ethyl Alcohol < 10 ( - 10) mg/dL SARS-CoV-2 (PCR) Negative (Negative) Imaging Data Chest x-ray: Radiologist's Impression: FINDINGS:? ? Surgical changes and devices:? None.? ? Lungs and pleura:? Lungs are clear.? No pleural effusions or pneumothorax.? ? Mediastinum:? Mediastinal contours appear normal.? Heart size is normal.? ? Bones and chest wall:? No suspicious bony lesions.? No displaced rib fracture can be seen.? Age-appropriate bony degenerative changes are seen.? Overlying soft tissues appear unremarkable.? ? ? IMPRESSION:? No displaced rib fracture or pneumothorax can be seen on this plain film study. ? If there is strong clinical concern for chest trauma in this patient, please consider a follow-up chest CT with IV contrast for further evaluation.? ? ? Dictated by: Christopher Henriquez M.D. on 06/21/2021 at 17:00 ? ? <Spencer Torrez, DO - Last Filed: 06/21/21 20:40> Lab Data Labs: Lab Results 06/21/21 06/21/21 06/21/21 Range/Units 17:33 17:33 19:10 WBC 6.6 (4.5-11.0) X10^3/uL RBC 4.65 (4.0-5.2) X10^6/uL Hgb 8.7 L (12.0-16.0) g/dL Hct 27.4 L (36-46) % MCV 59.0 L (80-100) fL MCH 18.6 L (26-34) PG MCHC 31.5 (30-36) % RDW 19.4 H (11.6-14.8) % Plt Count 333 (150-400) X10^3/uL Neut % (Auto) 76.6 H (50-75) % Lymph % (Auto) 16.6 L (25-40) % [place] % (Auto) 4.8 (3-14) % Eos % (Auto) 1.6 L (2-4) % Baso % (Auto) 0.4 (0-2) % Neut # (Auto) 5100 (2291-8470) /uL Lymph # (Auto) 1100 (1663-5243) /uL [place] # (Auto) 300 (0-900) /uL Eos # (Auto) 100 (0-450) /uL Baso # (Auto) 0 (0-100) /uL RBC Morphology See below Hypochromasia 3+ H Microcytosis 3+ H Sodium 130 L (137-145) mmol/L Potassium 3.3 L (3.4-5.1) mmol/L Chloride 96 L (98-107) mmol/L Carbon Dioxide 27 (22-32) mmol/L BUN 6 L (7-17) mg/dL Creatinine 0.46 L (0.52-1.04) mg/dL Estimated GFR > 60.0 (>60) mL/min BUN/Creatinine Ratio 13.0 (6-22) Glucose 128 H (80-110) mg/dL Calcium 9.2 (8.4-10.2) mg/dL Magnesium 2.1 (1.6-2.3) mg/dL Total Bilirubin 0.6 (0.2-1.3) mg/dL AST 47 H (14-36) IU/L ALT 15 (<35) IU/L Alkaline Phosphatase 95 (38-126) U/L Troponin I < 0.012 (0.01-0.034) ng/mL Total Protein 7.3 (6.3-8.2) g/dL Albumin 4.3 (3.5-5.0) g/dL Globulin 3.0 (1.7-4.1) g/dL Albumin/Globulin Ratio 1.4 (1.0-2.8) Ethyl Alcohol < 10 ( - 10) mg/dL SARS-CoV-2 (PCR) Negative (Negative) Imaging Data CT scan - head: Radiologist's Impression: Danae Canseco??61??F??1960 ? Allergy/Adv: latex, Penicillins Close Chest X-Ray (Signed) Christopher Henriquez - 06/21/[address] (Signed) Call,Fran - 06/21/[address] (Signed) Call,Fran - 06/21/21 Ankle X-Ray (Signed) Froilan Adams - 08/26/20 Hand X-Ray (Signed) Froilan Adams - 08/26/20 Foot X-Ray (Signed) Ronald Luke - 05/16/20 Ankle X-Ray (Signed) Ronald Luke - 05/16/20 Lumbar Spine MRI (Signed) Gloria Shea - 11/11/[address] (Signed) Beltran Amaya - 08/25/18 Hip X-Ray (Signed) Beltran Amaya - 08/25/18 Elbow X-Ray (Signed) Beltran Amaya - 08/25/18 Chest/Abdomen/Pelvis CT (Signed) Beltran Amaya - 08/25/18 Cervical Spine X-Ray (Signed) Beltran Amaya - 08/25/[address] (Signed) Christopher Henriquez - 04/07/18 Chest/Abdomen/Pelvis CT (Signed) Nikki Lozano - 04/07/18 Telemetry Strips 01/06/18 PET, Tumor Imaging Skull-Mid Thigh (Signed) Ronald Luke - 12/14/[address] [address] [address] Scan Report Signed Patient: Danae Canseco MR#: [id number] : 1960 Acct:[id number] Age/Sex: 61 / F Date of Service: 06/21/21 Loc: ED Accession Number: [id number] ?? Procedure: CT head/brain wo con Ordering Provider: Elsi Springer MD PROCEDURE:? CT HEAD/BRAIN WO CON ? INDICATIONS:? fall, gait instability, Left upper extremity weakness ? TECHNIQUE:? Noncontrast 4.5 mm thick angled axial sections acquired from the foramen magnum to the vertex, with coronal and sagittal reformats.? For radiation dose reduction, the following was used:? automated exposure control, adjustment of mA and/or kV according to patient size.? ? COMPARISON:? [facility], CT, HEAD WITHOUT CONTRAST, 04/18/2012, 23:51. ? FINDINGS:? Image quality:? Excellent.? ? CSF spaces:? Basal cisterns are patent.? No extra-axial fluid collections.? Ventricles are normal in size and shape.? ? Brain:? No midline shift.? No intracranial masses or hemorrhage.? Rodney-white matter interface appears normal.? ? Skull and face:? Calvarium and visualized facial bones are intact, without suspicious lesions.? ? Sinuses:? Visualized sinuses and mastoids are clear.? ? IMPRESSION:? No acute intracranial abnormality. ? ? Dictated by: Fran Perez M.D. on 06/21/2021 at 18:03 ? ? Approved by: Fran Perez M.D. on 06/21/2021 at 18:06 ? CT - cervical spine: Radiologist's Impression: Danae Canseco??61??F??1960 ? Allergy/Adv: latex, Penicillins Close Chest X-Ray (Signed) Christopher Henriquez - 06/21/[address] (Signed) Call,Fran - 06/21/[address] (Signed) Call,Fran - 06/21/21 Ankle X-Ray (Signed) Froilan Adams - 08/26/20 Hand X-Ray (Signed) Froilan Adams - 08/26/20 Foot X-Ray (Signed) Ronald Luke - 05/16/20 Ankle X-Ray (Signed) Ronald Luke - 05/16/20 Lumbar Spine MRI (Signed) MonseGloria avalos - 11/11/[address] (Signed) Beltran Amaya - 08/25/18 Hip X-Ray (Signed) Beltran Amaya - 08/25/18 Elbow X-Ray (Signed) Jose LuisBeltran - 08/25/18 Chest/Abdomen/Pelvis CT (Signed) AmayaAlexiaBeltran - 08/25/18 Cervical Spine X-Ray (Signed) AmayaBeltran - 08/25/[address] (Signed) Christopher Henriquez - 04/07/18 Chest/Abdomen/Pelvis CT (Signed) Nikki Lozano - 04/07/18 Telemetry Strips 01/06/18 PET, Tumor Imaging Skull-Mid Thigh (Signed) Evens Lukejuma - 12/14/17 [facility] [address] CT Scan Report Signed Patient: Danae Canseco MR#: [id number] : 1960 Acct:[id number] Age/Sex: 61 / F Date of Service: 06/21/21 Loc: ED Accession Number: [id number] ?? Procedure: CT head/brain wo con Ordering Provider: Elsi Springer MD PROCEDURE:? CT HEAD/BRAIN WO CON ? INDICATIONS:? fall, gait instability, Left upper extremity weakness ? TECHNIQUE:? Noncontrast 4.5 mm thick angled axial sections acquired from the foramen magnum to the vertex, with coronal and sagittal reformats.? For radiation dose reduction, the following was used:? automated exposure control, adjustment of mA and/or kV according to patient size.? ? COMPARISON:? [facility], CT, HEAD WITHOUT CONTRAST, 04/18/2012, 23:51. ? FINDINGS:? Image quality:? Excellent.? ? CSF spaces:? Basal cisterns are patent.? No extra-axial fluid collections.? Ventricles are normal in size and shape.? ? Brain:? No midline shift.? No intracranial masses or hemorrhage.? Rodney-white matter interface appears normal.? ? Skull and face:? Calvarium and visualized facial bones are intact, without suspicious lesions.? ? Sinuses:? Visualized sinuses and mastoids are clear.? ? IMPRESSION:? No acute intracranial abnormality. ? ? Dictated by: Fran Perez M.D. on 06/21/2021 at 18:03 ? ? Approved by: Fran Perez M.D. on 06/21/2021 at 18:06 ? MDM Narrative Medical decision making narrative: Patient with multiple falls over the past few weeks due to lower extremity weakness has focal findings on her exam including left upper and lower extremity weakness with some tingling. Initial imaging is unremarkable. Patient is outside of any window for intervention. She requires hospitalization for the completion of her stroke workup Discharge Plan Departure Patient Disposition: Admitted As Inpatient Clinical Impression: Stroke Admit Date/Time: 06/21/21 20:32 Admit Provider: Farshad Shipley
[2021-06-21 18:54] LABS: Add Manual Diff / Slide Review NO; Basophils Absolute Auto 0 /uL (0-100); Basophils Percent Auto 0.4 % (0-2); Eosinophils Absolute Auto 100 /uL (0-450); Eosinophils Percent Auto 1.6 % (2-4); Hematocrit 27.4 % (36-46); Hemoglobin 8.7 g/dL (12.0-16.0); Lymphocytes Absolute Auto 1100 /uL (1100-4500); Lymphocytes Percent Auto 16.6 % (25-40); Mean Corpuscular HGB Conc 31.5 % (30-36); Mean Corpuscular Hemoglobin 18.6 PG (26-34); Monocytes Absolute Auto 300 /uL (0-900); Monocytes Percent Auto 4.8 % (3-14); Neutrophils Absolute Auto 5100 /uL (1500-7000); Neutrophils Percent Auto 76.6 % (50-75); Platelet Count 333 X10^3/uL (150-400); Red Blood Cell Count 4.65 X10^6/uL (4.0-5.2); Red Cell Distribution Width 19.4 % (11.6-14.8); White Blood Cell Count 6.6 X10^3/uL (4.5-11.0)
[2021-06-21 19:01] LABS: Alanine Aminotransferase 15 IU/L (<35); Albumin 4.3 g/dL (3.5-5.0); Albumin Globulin Ratio 1.4 (1.0-2.8); Alkaline Phosphatase 95 U/L (38-126); Aspartate Aminotransferase 47 IU/L (14-36); Bilirubin Total 0.6 mg/dL (0.2-1.3); Blood Urea Nitrogen 6 mg/dL (7-17); Calcium 9.2 mg/dL (8.4-10.2); Carbon Dioxide 27 mmol/L (22-32); Chloride 96 mmol/L (98-107); Estimated Glomerular Filt Rate > 60.0 mL/min (>60); Ethanol (ETOH) < 10 mg/dL; Glucose 128 mg/dL (80-110); Magnesium 2.1 mg/dL (1.6-2.3); Sodium 130 mmol/L (137-145); Total Protein 7.3 g/dL (6.3-8.2)
[2021-06-21 19:12] LABS: Troponin I < 0.012 ng/mL (0.01-0.034)
--- NOTE | 2021-06-21 19:13 | PC.NURSE ---
Patient arrived VIA EMS. C/O syncope yesterday and today. Denies hitting her head, denies LOC. Complains of RLS, chronic neck and back pain. AOx4/4 NIH score of 2. Passed Swallow screen.
[2021-06-21 19:19] LABS: HEMOLYSIS 58 (0-50)
[2021-06-21 19:20] LABS: Potassium 3.3 mmol/L (3.4-5.1)
[2021-06-21 19:58] LABS: Hypochromasia 3+; Microcytosis 3+
[2021-06-21 19:59] LABS: COVID19 - ADMIT (NP swab/PCR) Negative (Negative)
[2021-06-21] MEDS: HYDROMORPHONE 0.5 MG INJ IV (20:06)
[2021-06-21 22:55] LABS: Appearance Urine UA CLEAR; Bilirubin Urine UA NEGATIVE (NEGATIVE); Color Urine UA YELLOW; Glucose Urine UA NEGATIVE (Negative); Ketones Urine UA 1+ (NEGATIVE); Leukocyte Esterase Urine UA NEGATIVE (NEGATIVE); Nitrite Urine UA NEGATIVE (Negative); Occult Blood Urine UA NEGATIVE (Negative); Protein Urine UA NEGATIVE (Negative); Specific Gravity Urine UA <=1.005 (1.000-1.035); Urobilinogen Urine UA 0.2 E.U./dL (0.2)
[2021-06-21 22:59] LABS: UR Morphine/Opiate cutoff 300 Negative (Negative); Ur Creatinine Normal (Normal); Ur Specific Gravity Normal (Normal); Urine Amphetamines Negative (Negative); Urine Barbiturates Negative (Negative); Urine Benzodiazepines Negative (Negative); Urine Cocaine Negative (Negative); Urine MDMA Negative (Negative); Urine Methadone Negative (Negative); Urine Methamphetamines Negative (Negative); Urine Oxycodone Negative (Negative); Urine Phencyclidine Negative (Negative); Urine Tetrahydrocannabinol Positive (Negative); Urine Tricyclic Antidepressant Positive (Negative); Urine pH Normal (Normal)
[2021-06-21 23:01] LABS: Bacteria Urine None Seen; Culture Indicated Urine Cult Not Indicated; RBC Urine None Seen (0-5/HPF); Urine Comments Microscopic Normal; WBC Urine None Seen (0-5/HPF)
--- NOTE | 2021-06-21 23:45 | PM.HP.1 ---
History of Present Illness History of Present Illness Date Patient Seen: 06/21/21 Time Patient Seen: 23:45 Date of Onset of Symptoms: 06/07/21 Chief complaint: Syncope, glf Narrative: This pleasant 61-year-old female who is under the primary care of Dr. Crcokett presents to the ER via EMS due to concerns for frequent falling and progressive weakness. Patient has a history of type 2 diabetes, Hodgkin's lymphoma, hypertension, hyponatremia, hyperlipidemia as well as radiculopathy, COPD. Over the last several weeks she has had frequent falling and has had progressive weakness and was felt to have left upper extremity and left lower extremity weakness and concern for possible CVA within the last 2 weeks. The patient has a history of multiple orthopedic issues including left shoulder rotator cuff problems as well as cervical radiculopathy and lumbar radiculopathy. She has had a previous history long chronic of low back pain. With sciatica. She previously has been on opioid medications for this but she went off of it because she did not like how they made her feel cognitively. In the last 2 weeks the patient has had progressive weakness of her left arm and her left leg. She has fallen multiple times in having increased pain. She is mod been taking her medications regularly. She has not taken any medications today. She has not eaten and she has not drank anything really today. She was admitted for further monitoring and treatment. Past medical history: 1. Previous history of a blood clot in 2003 2. Hodgkin's lymphoma, currently she is just followed annually by Oncology 3. Tobacco use 4. Type 2 diabetes. She previously was on metformin but she has been off this for quite some time because it was causing GI side effects. 5. Hypertension 6. Coronary artery disease, status post coronary stent in 2004 7. Migraine headache disorder 8. Previous history of stomach ulcer 9. Degenerative joint disease Allergies latex and penicillin Past surgical history: 1. section 2. Two thousand five she had a coronary stent placed 3. Patient had a left parotidectomy in September of 2017 due to lymphoma Family history Mom with heart disease, depression, diabetes and hypertension Father with history of deafness Siblings with alcohol and drug abuse Child with depression asthma Health related behavior: Patient smokes on a regular basis Patient uses alcohol periodically Patient uses edible marijuana products but no other illicit drugs Social history: Patient is and lives in [facility] with her . She has 2 children who are grown but live here in town. Review of systems: Patient denies hitting her head. She does have a headache now but she thinks is because she has not eaten Patient denies any visual changes. She denies any numbness or tingling in her extremities. She denies any difficulty speaking or dysarthria or facial droop or swallowing difficulties Patient denies any diarrhea or constipation Patient denies any bright red blood per rectum or black tarry stools Patient denies cough or shortness of breath or fever or chills or rashes Patient History Medical History Cervical spondylosis with radiculopathy Diabetes Herniated nucleus pulposus, L4-5 HTN (hypertension) Low grade B-cell lymphoma Neck pain, chronic Surgical History History of heart artery stent History of lumpectomy Status post delivery Status post tubal ligation Family & Social History Family History Brother Age: 57 Heart disease Father Hypertension Gallstones Diabetes mellitus Mother Gallstones Crohns disease Social History: household members spouse,children Prior Living Arrangements House Safety & Behavioral: Feels Safe in Current Yes Environment Been Physically Hurt or No Threatened By a Person Suicidal Ideation Description None Suicide Plan Description No Plan Tobacco & Substance use: Tobacco type cigarettes Smoking Status Current every day smoker alcohol intake never Substance Use Type marijuana,opiates Meds Home Medications and Allergies Home Medications Medication Instructions Recorded Confirmed Type ASPIRIN (Aspirin Ec) 81 mg PO Q DAY #0 11/08/09 06/21/21 History HYDROCHLOROTHIAZIDE (Hydrodiuril / 25 mg PO DAILY #0 11/08/09 06/21/21 History Hctz) Metoprolol Succinate (Toprol Xl) 100 mg PO QAM #0 11/08/09 06/21/21 History fluticasone 250 mcg-salmeterol 50 1 puff INH BID #60 dose 01/01/16 06/21/21 Rx mcg/dose blistr powdr for inhalation (Advair Diskus) promethazine 25 mg tablet 25 mg PO Q6HP PRN #120 tab 03/01/16 06/21/21 Rx duloxetine 30 mg capsule,delayed 30 mg PO SEE INSTRUCTIONS #90 cap 06/10/16 06/21/21 Rx release (Cymbalta) cyclobenzaprine 10 mg tablet 10 mg PO TIDP PRN #90 tab 08/10/16 06/21/21 Rx pravastatin 20 mg tablet 20 mg PO DAILY 12/28/17 06/21/21 History pregabalin 150 mg capsule (Lyrica) 150 mg PO DAILY cap 12/28/17 06/21/21 History albuterol sulfate 90 mcg/actuation 1 puff INH QIDP PRN 06/21/21 06/21/21 History aerosol inhaler (Ventolin HFA) trazodone 100 mg tablet 100 mg PO PC 06/21/21 06/21/21 History Allergies Allergy/AdvReac Type Severity Reaction Status Date / Time latex [LATEX] Allergy Mild hives/rash Verified 05/16/20 13:38 Penicillins [PENICILLINS] Allergy Unknown Verified 05/16/20 13:38 Review of Systems Review of Systems Narrative: 12 point review of systems is negative other than HPI Exam Vital Signs (past 8 hours): - 06/21/21 17:33 06/21/21 17:34 06/21/21 17:35 Temperature 98.1 F Pulse Rate 95 H 93 H 96 H Respiratory Rate 17 20 16 Blood Pressure 136/78 136/78 Pulse Oximetry 95 100 97 06/21/21 18:00 06/21/21 18:30 06/21/21 19:00 Temperature Pulse Rate 82 77 88 Respiratory Rate 19 15 19 Blood Pressure Pulse Oximetry 99 100 100 06/21/21 19:34 06/21/21 20:00 06/21/21 20:30 Temperature Pulse Rate 81 98 H 87 Respiratory Rate 29 H 43 H Blood Pressure Pulse Oximetry 80 L 100 100 06/21/21 21:00 06/21/21 21:15 Temperature 98.8 F Pulse Rate 84 86 Respiratory Rate 30 H 18 Blood Pressure 134/49 L Pulse Oximetry 100 100 Oxygen Delivery Method Room Air Oxygen Flow Rate 0 Narrative Exam Narrative: Patient is alert and oriented x3 in no apparent distress but then at times is moaning and groaning in grabbing her foot because of spasm type pain. Patient appears older than stated age. HEENT: Eyes pupils equal round reactive to light extraocular muscles intact. Nose unremarkable. Oropharynx shows patient is edentulous. There is no evidence of trauma or bruising from biting her tongue. Mucous membranes slightly dry. Patient does have bruising under her chin from a fall Neck: Supple without adenopathy or thyromegaly Chest: Clear to auscultation without wheezes rhonchi or crackles, slightly prolonged expiratory phase. Patient has bruising on her right breast superior aspect Cor: Regular rate and rhythm with distant S1-S2 Abdomen: Positive bowel sounds, soft, nontender, nondistended Extremities: No edema, pulses intact. Bruising diffusely lower extremity and upper extremity. Exam difficult because patient is grabbing her left foot because it is painful. There is no discernible rash. Patient has weakness of her left upper extremity and it is cool but pulses intact. Unable to completely examine left lower leg. Strength in the right upper extremity right lower extremity is neurovascularly intact. Neurologic exam: Cranial nerves 2-12 are grossly intact. Weakness of her left upper extremity and left lower extremity but unable to adequately assess due to patient's current pain and unable to perform task because of this. There is no atrophy of the muscles Objective Labs Result Diagrams: 06/21/21 17:33 06/21/21 17:33 Labs: Laboratory Results - last 24 hr 06/21/21 06/21/21 06/21/21 17:33 17:33 19:10 WBC 6.6 RBC 4.65 Hgb 8.7 L Hct 27.4 L MCV 59.0 L MCH 18.6 L MCHC 31.5 RDW 19.4 H Plt Count 333 Neut % (Auto) 76.6 H Lymph % (Auto) 16.6 L [place] % (Auto) 4.8 Eos % (Auto) 1.6 L Baso % (Auto) 0.4 Neut # (Auto) 5100 Lymph # (Auto) 1100 [place] # (Auto) 300 Eos # (Auto) 100 Baso # (Auto) 0 RBC Morphology See below Hypochromasia 3+ H Microcytosis 3+ H Sodium 130 L Potassium 3.3 L Chloride 96 L Carbon Dioxide 27 BUN 6 L Creatinine 0.46 L Estimated GFR > 60.0 BUN/Creatinine Ratio 13.0 Glucose 128 H Calcium 9.2 Magnesium 2.1 Total Bilirubin 0.6 AST 47 H ALT 15 Alkaline Phosphatase 95 Troponin I < 0.012 Total Protein 7.3 Albumin 4.3 Globulin 3.0 Albumin/Globulin Ratio 1.4 Urine Color Urine Appearance Urine pH Ur Specific [place] Urine Protein Urine Glucose (UA) Urine Ketones Urine Occult Blood Urine Nitrate Urine Bilirubin Urine Urobilinogen Ur Leukocyte Esterase Urine RBC Urine WBC Urine Bacteria Ur Culture Indicated? Micro UA Comment U Opiates 300ng/mL cut Ur Oxycodone Screen Urine Methadone Screen Ur Barbiturates Screen U Tricyclic Antidepress Ur Phencyclidine Scrn Ur Amphetamines Screen U Methamphetamines Scrn Ur MDMA Scrn (Ecstasy) U Benzodiazepines Scrn Urine Cocaine Screen U Marijuana (THC) Screen Ethyl Alcohol < 10 SARS-CoV-2 (PCR) Negative 06/21/21 06/21/21 22:30 22:30 WBC RBC Hgb Hct MCV MCH MCHC RDW Plt Count Neut % (Auto) Lymph % (Auto) [place] % (Auto) Eos % (Auto) Baso % (Auto) Neut # (Auto) Lymph # (Auto) [place] # (Auto) Eos # (Auto) Baso # (Auto) RBC Morphology Hypochromasia Microcytosis Sodium Potassium Chloride Carbon Dioxide BUN Creatinine Estimated GFR BUN/Creatinine Ratio Glucose Calcium Magnesium Total Bilirubin AST ALT Alkaline Phosphatase Troponin I Total Protein Albumin Globulin Albumin/Globulin Ratio Urine Color Yellow Urine Appearance Clear Urine pH 7.0 Ur Specific God[place] <=1.005 Urine Protein Negative Urine Glucose (UA) Negative Urine Ketones 1+ H Urine Occult Blood Negative Urine Nitrate Negative Urine Bilirubin Negative Urine Urobilinogen 0.2 Ur Leukocyte Esterase Negative Urine RBC None seen Urine WBC None seen Urine Bacteria None seen Ur Culture Indicated? Cult not indicated Micro UA Comment Microscopic normal U Opiates 300ng/mL cut Negative Ur Oxycodone Screen Negative Urine Methadone Screen Negative Ur Barbiturates Screen Negative U Tricyclic Antidepress Positive H Ur Phencyclidine Scrn Negative Ur Amphetamines Screen Negative U Methamphetamines Scrn Negative Ur MDMA Scrn (Ecstasy) Negative U Benzodiazepines Scrn Negative Urine Cocaine Screen Negative U Marijuana (THC) Screen Positive H Ethyl Alcohol SARS-CoV-2 (PCR) Assessment & Plan Assessment & Plan narrative: 61-year-old female admitted with progressive upper extremity and lower extremity weakness with frequent falls with concern for possible distant CVA. Assessment 1. Progressive weakness with frequent falls of unclear etiology. Discussed differential diagnosis with patient. The 1st and most concerning and reason for admission is possible CVA. Also I am concerned about progressive radiculopathy as the etiology of her symptoms. We will proceed with an echo and an MRI/MRA stroke protocol. We will place the patient on telemetry. We will consult PT and OT tomorrow. Assessment 2. Restless leg syndrome with increased pain in her left lower extremity of unclear etiology Plan: Will go ahead and treat with pramipexole. Will restart Flexeril. Will very cautiously use pain medications and I discussed this with the patient at length. Will correct electrolytes and get her back on her home medications which she has not been taking faithfully Assessment 3. Tobacco use with probable mild COPD Plan: Will provide Ventolin and consult RT. No significant acute abnormalities Assessment 4. Hyponatremia Plan: Will give IV fluids. Suspect this is due to illness and poor p.o. intake Assessment 5. Hypokalemia Plan: Will replace and reassess labs in the morning Assessment 6. Anemia, chronic with acute exacerbation of unclear etiology Plan: Will check guaiacs. Will check iron studies. Will recheck labs in the morning. Will place on a proton pump inhibitor. Assessment 7. Frequent falls related to progressive weakness Plan: Will consult PT and OT. CT scan neck was negative. Will treat pain. Assessment 8. History of Hodgkin's lymphoma without acute issues Plan continue to follow Assessment 9. Depression anxiety Plan continue on duloxetine and trazodone. 10. Hypertension Plan: Will continue metoprolol 50 mg and start hydrochlorothiazide in the morning Assessment 11. Coronary artery disease without acute symptoms Plan: Will monitor for symptoms. Continue on pravastatin Assessment 12. DVT prophylaxis Plan: Will treat with Lovenox Assessment 13. GI prophylaxis Plan: Pantoprazole IV in this patient with a history of stomach ulcer Assessment 14. Type 2 diabetes, presumably diet-controlled Plan: Will do CBG q.a.c. and q.h.s. and will place her on a diabetic diet. Code status is full code 70 minutes was spent with patient at bedside and discussing the case with nursing staff and formulating a plan Time Spent With Patient Critical Care time: I spent a total of [] minutes of critical care time on this patient's care today; this time is exclusive of procedural time.
[2021-06-21] MEDS: OXYCODONE IR 5 MG TABLET PO (23:47)
[2021-06-21] MEDS: TRAZODONE 100 MG TABLET 200 MG PO (23:48)
[2021-06-21] MEDS: SODIUM CHLORIDE 0.45% 1,000 ML 100 ML IV (23:55)
[2021-06-22] VITALS (7 sets, daily range): BP systolic 105–144; BP diastolic 49–76; PULSE 75–95; RESP 14–20; TEMP 36.1–37; O2SAT 96–100
[2021-06-22] MEDS: DULOXETINE 30 MG CAPSULE PO ×3 (00:36→20:07)
[2021-06-22] MEDS: KCL 20 MEQ IN NS 1,000 ML 125 MEQ IV ×3 (01:14→23:35)
[2021-06-22] MEDS: CYCLOBENZAPRINE 10 MG TABLET PO ×3 (01:14→21:40)
[2021-06-22] MEDS: OXYCODONE IR 5 MG TABLET PO ×4 (05:20→19:29)
[2021-06-22 06:16] LABS: Magnesium 2.1 mg/dL (1.6-2.3)
[2021-06-22 06:19] LABS: Alanine Aminotransferase 14 IU/L (<35); Albumin 3.6 g/dL (3.5-5.0); Albumin Globulin Ratio 1.3 (1.0-2.8); Alkaline Phosphatase 90 U/L (38-126); Aspartate Aminotransferase 27 IU/L (14-36); BUN Creatinine Ratio 13.4 (6-22); Bilirubin Total 0.3 mg/dL (0.2-1.3); Blood Urea Nitrogen 9 mg/dL (7-17); Calcium 8.8 mg/dL (8.4-10.2); Carbon Dioxide 27 mmol/L (22-32); Chloride 99 mmol/L (98-107); Estimated Glomerular Filt Rate > 60.0 mL/min (>60); Globulin 2.7 g/dL (1.7-4.1); Glucose 120 mg/dL (80-110); HEMOLYSIS < 15 (0-50); Potassium 3.1 mmol/L (3.4-5.1); Sodium 130 mmol/L (137-145); Total Protein 6.3 g/dL (6.3-8.2)
[2021-06-22 06:20] LABS: HEMOLYSIS < 15 (0-50)
[2021-06-22 06:23] LABS: Add Manual Diff / Slide Review NO; Basophils Absolute Auto 0 /uL (0-100); Basophils Percent Auto 0.8 % (0-2); Eosinophils Absolute Auto 100 /uL (0-450); Eosinophils Percent Auto 1.8 % (2-4); Hemoglobin 7.6 g/dL (12.0-16.0); Lymphocytes Absolute Auto 1300 /uL (1100-4500); Mean Corpuscular HGB Conc 30.8 % (30-36); Mean Corpuscular Hemoglobin 18.2 PG (26-34); Mean Corpuscular Volume 59.2 fL (80-100); Monocytes Absolute Auto 500 /uL (0-900); Monocytes Percent Auto 7.8 % (3-14); Neutrophils Absolute Auto 3900 /uL (1500-7000); Neutrophils Percent Auto 66.6 % (50-75); Platelet Count 305 X10^3/uL (150-400); Red Blood Cell Count 4.19 X10^6/uL (4.0-5.2); Red Cell Distribution Width 19.3 % (11.6-14.8); White Blood Cell Count 5.8 X10^3/uL (4.5-11.0)
[2021-06-22 06:24] LABS: Iron < 10 ug/dL (37-170)
[2021-06-22 06:25] LABS: Hematocrit 24.8 % (36-46)
[2021-06-22 06:30] LABS: Percent Iron Saturation 2 % (15-50); Total Iron Binding Capacity 446 ug/dL (265-497); Transferrin 398 mg/dL (206-381)
[2021-06-22 06:44] LABS: Hemoglobin A1C% w Est Avg Glu 6.4 % (4.0-6.0)
[2021-06-22 06:52] LABS: Ferritin 7 ng/mL (11-264); Hypochromasia 3+; Microcytosis 3+
[2021-06-22 06:53] LABS: Anisocytosis 1+
--- NOTE | 2021-06-22 06:54 | DI.ECHO.S_ITS ---
[facility]---------+ [facility] +---------+ : : [address] : : : : [id number] : : : : Phone: [phone]+ Echocardiogram Report + + :Name: FLORENTIN SPRINGER Study Date: 06/22/2021 Height: 62 in : :[facility] ReadingLocation: Weight: 150 lb : : Gender: Female BSA: 1.7 m2 : :: 1960 Age: 61 yrs BP: 134/49 mmHg: :Reason For Study: CVA : :Ordering Physician: SHAHZAD, : :GABRIELLA Performed By: Dot Cast : :Referring: GABRIELLA PIKE : + + Interpretation Summary Normal sinus rhythm. Normal LV size and wall thickness; normal wall motion and LV systolic function. EF is 70-75%. Borderline LA enlargement; otherwise normal chamber sizes. No evidence of PFO based on bubble study. No source of embolism found. No prior study available for comparison. Procedure: A two-dimensional transthoracic echocardiogram with color flow and Doppler was performed. The study quality was technically adequate. Comparison is made with the echocardiogram of 06/11/2014. The patient was in sinus rhythm with heart rates between 80-87. bpm during the exam. The patient had occasional PVCs during the exam. Left Ventricle: The left ventricle is normal in size and wall thickness. The ejection fraction is estimated to be 70-75%. Right Ventricle: The right ventricle is normal in size and function. Atria: The left atrium is borderline dilated. Right atrial size is normal. There is no Doppler evidence for an interatrial shunt. Injection of contrast documented no interatrial shunt. Mitral Valve: The mitral valve is normal in structure and function. There is no mitral regurgitation noted. Aortic Valve: The aortic valve opens well. There is no aortic valve stenosis. No aortic regurgitation is present. Tricuspid Valve: The tricuspid valve is normal in structure and function. There is trace tricuspid regurgitation. Pulmonary artery pressures cannot be estimated because of the lack of a measurable TR jet velocity but the IVC suggests a CVP of around 3 mmHg. Pulmonic Valve: The pulmonic valve is not well visualized. There is no pulmonic valvular regurgitation. Great Vessels: The aortic root is borderline dilated. The ascending aorta could not be visualized. The IVC is of normal diameter and collapses greater than 50% with a sniff. This suggests a low right atrial pressure of 3 mm Hg. Pericardium/ Pleura There is no pericardial effusion. There is no pleural effusion. MMode/2D Measurements & Calculations LVIDd: 4.2 cm LVOT diam: 2.0 cm LVIDs: 2.4 cm Ao root diam: 3.4 cm FS: 43.7 % Ao Arch Diam (Prox Trans): 2.2 cm IVSd: 0.54 cm LVPWd: 0.73 cm LV al. diameter/BSA (cm/m^2): 2.5 LV sys. diameter/BSA (cm/m^2): 1.4 LA A2 area: 19.7 cm2 RA long axis: 4.3 cm LA A4 area: 18.2 cm2 RA area: 9.9 cm2 LA length (vol): 5.3 cm RA vol: 19.7 ml LA vol: 57.9 ml RA : 11.6 ml/m2 LA vol index: 34.2 ml/m2 IVC diam: 1.6 cm RVD1 (basal): 2.6 cm TAPSE: 2.0 cm Doppler Measurements & Calculations Ao V2 max: 134.6 cm/sec LVOT Max Leno: 113.9 cm/sec Ao V2 mean: 93.1 cm/sec LV V1 max P.2 mmHg Ao max P.2 mmHg LV V1 VTI: 22.3 cm Ao mean P.9 mmHg MARK(I,D): 2.8 cm2 Ao V2 VTI: 25.2 cm MARK(V,D): 2.7 cm2 sev ratio: 0.88 MARK indexed to BSA (cm^2/m^2): 1.7 MV E max leno: 100.5 cm/sec PA V2 max: 108.6 cm/sec MV A max leno: 122.5 cm/sec PA V2 mean: 74.2 cm/sec MV E/A: 0.82 PA mean P.4 mmHg Med Peak E' Leno: 9.0 cm/sec PA pr(Accel): 32.8 mmHg E/E' med: 11.2 Lat Peak E' Leno: 11.2 cm/sec E/E' lat: 9.0 E/e' average: 10.1 MV dec time: 0.19 sec SV(LVOT): 70.7 ml Electronically signed by: Nuzhat Hallman M.D. on Reading Physician:06/22/2021 11:34 AM
--- NOTE | 2021-06-22 07:21 | PM.PN.1 ---
Subjective Subjective Date Patient Seen: 06/22/21 Time Patient Seen: 07:21 Interval history: Patient had an out okay night. She is feeling better today but feels that her left foot was in a cramped position all night and if she moves it it causes excruciating pain. She just feels aching all over because of her frequent falls. She is having chest wall pain but no chest pain and no shortness of breath. Review of systems Patient denies any bright blood per rectum or black tarry stools or hematochezia No fever Exam Vital Signs (past 8 hours): - 06/22/21 01:15 Temperature 98.4 F Pulse Rate 84 Respiratory Rate 18 Blood Pressure 128/76 Pulse Oximetry 98 Oxygen Delivery Method Room Air Oxygen Flow Rate 0 Narrative Exam Narrative: Patient is alert and oriented x3 in no apparent distress. She seems that she is in less discomfort. HEENT unremarkable Neck: Supple without adenopathy or thyromegaly Chest: Clear to auscultation without wheezes rhonchi or crackles Cor: Regular rate and rhythm with distant S1-S2 but no ectopy Abdomen: Positive bowel sounds, soft, nontender, nondistended Extremities: No edema, pulses intact. Patient has diffuse bruising throughout her body. Unchanged neurologic exam. Exam is limited to testing her strength due to patient's discomfort Objective Labs Result Diagrams: 06/22/21 05:23 06/22/21 05:23 Labs: Laboratory Results - last 24 hr 06/21/21 06/21/21 06/21/21 17:33 17:33 19:10 WBC 6.6 RBC 4.65 Hgb 8.7 L Hct 27.4 L MCV 59.0 L MCH 18.6 L MCHC 31.5 RDW 19.4 H Plt Count 333 Neut % (Auto) 76.6 H Lymph % (Auto) 16.6 L Stanton % (Auto) 4.8 Eos % (Auto) 1.6 L Baso % (Auto) 0.4 Neut # (Auto) 5100 Lymph # (Auto) 1100 Stanton # (Auto) 300 Eos # (Auto) 100 Baso # (Auto) 0 RBC Morphology See below Hypochromasia 3+ H Anisocytosis Microcytosis 3+ H Sodium 130 L Potassium 3.3 L Chloride 96 L Carbon Dioxide 27 BUN 6 L Creatinine 0.46 L Estimated GFR > 60.0 BUN/Creatinine Ratio 13.0 Glucose 128 H Hemoglobin A1c Calcium 9.2 Magnesium 2.1 Iron TIBC % Saturation Transferrin Ferritin Total Bilirubin 0.6 AST 47 H ALT 15 Alkaline Phosphatase 95 Troponin I < 0.012 Total Protein 7.3 Albumin 4.3 Globulin 3.0 Albumin/Globulin Ratio 1.4 Urine Color Urine Appearance Urine pH Ur Specific [place] Urine Protein Urine Glucose (UA) Urine Ketones Urine Occult Blood Urine Nitrate Urine Bilirubin Urine Urobilinogen Ur Leukocyte Esterase Urine RBC Urine WBC Urine Bacteria Ur Culture Indicated? Micro UA Comment U Opiates 300ng/mL cut Ur Oxycodone Screen Urine Methadone Screen Ur Barbiturates Screen U Tricyclic Antidepress Ur Phencyclidine Scrn Ur Amphetamines Screen U Methamphetamines Scrn Ur MDMA Scrn (Ecstasy) U Benzodiazepines Scrn Urine Cocaine Screen U Marijuana (THC) Screen Ethyl Alcohol < 10 SARS-CoV-2 (PCR) Negative 06/21/21 06/21/21 06/22/21 22:30 22:30 05:23 WBC 5.8 RBC 4.19 Hgb 7.6 L Hct 24.8 L MCV 59.2 L MCH 18.2 L MCHC 30.8 RDW 19.3 H Plt Count 305 Neut % (Auto) 66.6 Lymph % (Auto) 23.0 L Stanton % (Auto) 7.8 Eos % (Auto) 1.8 L Baso % (Auto) 0.8 Neut # (Auto) 3900 Lymph # (Auto) 1300 Stanton # (Auto) 500 Eos # (Auto) 100 Baso # (Auto) 0 RBC Morphology See below Hypochromasia 3+ H Anisocytosis 1+ H Microcytosis 3+ H Sodium Potassium Chloride Carbon Dioxide BUN Creatinine Estimated GFR BUN/Creatinine Ratio Glucose Hemoglobin A1c Calcium Magnesium Iron TIBC % Saturation Transferrin Ferritin Total Bilirubin AST ALT Alkaline Phosphatase Troponin I Total Protein Albumin Globulin Albumin/Globulin Ratio Urine Color Yellow Urine Appearance Clear Urine pH 7.0 Ur Specific [place] <=1.005 Urine Protein Negative Urine Glucose (UA) Negative Urine Ketones 1+ H Urine Occult Blood Negative Urine Nitrate Negative Urine Bilirubin Negative Urine Urobilinogen 0.2 Ur Leukocyte Esterase Negative Urine RBC None seen Urine WBC None seen Urine Bacteria None seen Ur Culture Indicated? Cult not indicated Micro UA Comment Microscopic normal U Opiates 300ng/mL cut Negative Ur Oxycodone Screen Negative Urine Methadone Screen Negative Ur Barbiturates Screen Negative U Tricyclic Antidepress Positive H Ur Phencyclidine Scrn Negative Ur Amphetamines Screen Negative U Methamphetamines Scrn Negative Ur MDMA Scrn (Ecstasy) Negative U Benzodiazepines Scrn Negative Urine Cocaine Screen Negative U Marijuana (THC) Screen Positive H Ethyl Alcohol SARS-CoV-2 (PCR) 06/22/21 06/22/21 06/22/21 05:23 05:23 05:23 WBC RBC Hgb Hct MCV MCH MCHC RDW Plt Count Neut % (Auto) Lymph % (Auto) [place] % (Auto) Eos % (Auto) Baso % (Auto) Neut # (Auto) Lymph # (Auto) Stanton # (Auto) Eos # (Auto) Baso # (Auto) RBC Morphology Hypochromasia Anisocytosis Microcytosis Sodium 130 L Potassium 3.1 L Chloride 99 Carbon Dioxide 27 BUN 9 Creatinine 0.67 Estimated GFR > 60.0 BUN/Creatinine Ratio 13.4 Glucose 120 H Hemoglobin A1c 6.4 H Calcium 8.8 Magnesium 2.1 Iron TIBC % Saturation Transferrin Ferritin 7 L Total Bilirubin 0.3 AST 27 ALT 14 Alkaline Phosphatase 90 Troponin I Total Protein 6.3 Albumin 3.6 Globulin 2.7 Albumin/Globulin Ratio 1.3 Urine Color Urine Appearance Urine pH Ur Specific [place] Urine Protein Urine Glucose (UA) Urine Ketones Urine Occult Blood Urine Nitrate Urine Bilirubin Urine Urobilinogen Ur Leukocyte Esterase Urine RBC Urine WBC Urine Bacteria Ur Culture Indicated? Micro UA Comment U Opiates 300ng/mL cut Ur Oxycodone Screen Urine Methadone Screen Ur Barbiturates Screen U Tricyclic Antidepress Ur Phencyclidine Scrn Ur Amphetamines Screen U Methamphetamines Scrn Ur MDMA Scrn (Ecstasy) U Benzodiazepines Scrn Urine Cocaine Screen U Marijuana (THC) Screen Ethyl Alcohol SARS-CoV-2 (PCR) 06/22/21 05:23 WBC RBC Hgb Hct MCV MCH MCHC RDW Plt Count Neut % (Auto) Lymph % (Auto) [place] % (Auto) Eos % (Auto) Baso % (Auto) Neut # (Auto) Lymph # (Auto) [place] # (Auto) Eos # (Auto) Baso # (Auto) RBC Morphology Hypochromasia Anisocytosis Microcytosis Sodium Potassium Chloride Carbon Dioxide BUN Creatinine Estimated GFR BUN/Creatinine Ratio Glucose Hemoglobin A1c Calcium Magnesium Iron < 10 L TIBC 446 % Saturation 2 L Transferrin 398 H Ferritin Total Bilirubin AST ALT Alkaline Phosphatase Troponin I Total Protein Albumin Globulin Albumin/Globulin Ratio Urine Color Urine Appearance Urine pH Ur Specific [place] Urine Protein Urine Glucose (UA) Urine Ketones Urine Occult Blood Urine Nitrate Urine Bilirubin Urine Urobilinogen Ur Leukocyte Esterase Urine RBC Urine WBC Urine Bacteria Ur Culture Indicated? Micro UA Comment U Opiates 300ng/mL cut Ur Oxycodone Screen Urine Methadone Screen Ur Barbiturates Screen U Tricyclic Antidepress Ur Phencyclidine Scrn Ur Amphetamines Screen U Methamphetamines Scrn Ur MDMA Scrn (Ecstasy) U Benzodiazepines Scrn Urine Cocaine Screen U Marijuana (THC) Screen Ethyl Alcohol SARS-CoV-2 (PCR) [facility] Medical History Cervical spondylosis with radiculopathy Diabetes Herniated nucleus pulposus, L4-5 HTN (hypertension) Low grade B-cell lymphoma Neck pain, chronic Surgical History History of heart artery stent History of lumpectomy Status post delivery Status post tubal ligation Family History Brother Age: 57 Heart disease Father Hypertension Gallstones Diabetes mellitus Mother Gallstones Crohns disease Social History marital status: household members: spouse and children Smoking Status: Current every day smoker alcohol intake: never substance use type: other Assessment & Plan Assessment & Plan narrative: 61-year-old female admitted to hospital for possible CVA due to left upper extremity and left lower extremity weakness. Assessment 1. Left lower extremity and left upper extremity weakness with possibility of distant CVA. No worsening symptoms. Plan: Patient is on telemetry, we will do echo and MRI MRA stroke protocol Will consult physical therapy and occupational therapy I have a suspicion that this may be more related to her cervical and lumbar radiculopathy and if the above is negative would consider working up spine etiology. Patient is on a baby aspirin for cardioprotection and we will increase to a full aspirin until we have further evidence of etiology of weakness Assessment 2. Type 2 diabetes with hemoglobin A1c 6.4 Plan: Will go ahead and continue monitoring blood sugars and hold her metformin as this causes GI side effects. She has not been on it for quite some time Assessment 3. Hypokalemia Plan: Will go ahead and give oral potassium today continue with potassium in her IV fluids. She did not have a very long period of time with IV fluid potassium going in Assessment 4. iron deficiency anemia of unclear etiology. I do not think this is related to her Hodgkin's lymphoma but that may be contributing. I think we need to rule out occult blood loss from GI Plan: Will go ahead and guaiac her stools. Will continue to trend H&H. Consider endoscopy upper and lower. Assessment 5. Hyponatremia peers this is been going on for quite some time. Certainly worsened by poor p.o. intake. Plan: Will continue with replacement with normal saline Will continue to monitor Assessment 6. Hypertension Plan: Will go ahead and continue metoprolol. Will hold hydrochlorothiazide for now. This may be contributing to hypokalemia and hyponatremia. Assessment 7. COPD, mild Plan: Continue ProAir and RT Assessment 8. Depression Plan: Continue on duloxetine and trazodone Assessment 9. Coronary artery disease without acute symptoms Plan: Continue on pravastatin and metoprolol Assessment 10. Frequent falls related to weakness with pain diffusely Plan: Will give cautiously oxycodone. Will restart all her outpatient medications including the cyclobenzaprine, Lyrica, duloxetine Assessment 11. Left foot pain of unclear etiology. Seems to be muscular spasm. Difficult to do a complete exam due to patient's discomfort. Could be nerve pain Plan: Will restart pregabalin. Will start pramipexole which I think is part of the problem. Pending results of MRI MRA stroke protocol then would proceed with MRI of spine. Assessment 12. Hodgkin's lymphoma without acute issues except for possible contribution to anemia Plan: Follow Assessment 13. Restless legs syndrome This is certainly contributing to left foot pain. Plan: Restart pramipexole Assessment 14. DVT prophylaxis Plan: Lovenox Assessment 15. History of gastric ulcer, distant Plan: Continue pantoprazole 50 minutes spent with patient today Time Spent With Patient Critical Care time: I spent a total of [] minutes of critical care time on this patient's care today; this time is exclusive of procedural time.
[2021-06-22] MEDS: POTASSIUM CHLORIDE 20 MEQ TAB 40 MEQ PO ×2 (08:54→15:38)
[2021-06-22] MEDS: ASPIRIN EC 325 MG TABLET PO (08:54)
[2021-06-22] MEDS: METOPROLOL ER 50 MG TABLET PO (08:55)
[2021-06-22] MEDS: hydroCHLOROthiazide 25 MG TABLET PO (08:55)
[2021-06-22] MEDS: PANTOPRAZOLE 40 MG VIAL IV (08:55)
[2021-06-22] MEDS: PRAMIPEXOLE 0.25 MG TABLET 0.125 MG PO ×2 (08:56→19:29)
[2021-06-22] MEDS: PREGABALIN 75 MG CAPSULE 150 MG PO (08:57)
[2021-06-22] MEDS: ENOXAPARIN 40 MG/0.4 ML SYRINGE SUBCUT (08:58)
[2021-06-22] MEDS: SODIUM CHLORIDE 0.9% FLUSH 10 ML IV (08:58)
--- NOTE | 2021-06-22 10:26 | PT.IIE ---
Surgical History (Last Reviewed 06/21/21 @ 23:49 by Nga Mendes MD) Status post delivery Status post tubal ligation Medical History (Last Reviewed 06/21/21 @ 23:49 by Nga Mendes MD) Cervical spondylosis with radiculopathy Diabetes Herniated nucleus pulposus, L4-5 HTN (hypertension) Low grade B-cell lymphoma Neck pain, chronic Physical Therapy Inpatient Evaluation/Re-Eval M1 PT/OT-IP Prior Functional Status Start: 06/22/21 09:11 Freq: NEEDED Status: Active Protocol: Document 06/22/21 10:26 AW (Rec: 06/22/21 11:33 AW [id number]) Medical Review Prior Functional Status Medical History Reviewed Yes Communication Pt is an effective verbal communicator. Mobility and Gait Pt is limited by chronic back pain at baseline but reports independent mobility without assistive device. She notes her balance and strength have gradually declined since Nicky with a precipitous decline in the past two weeks. She is falling frequently. Activities of Daily Living and IADL's Independent with all ADL's and IADL's. Pt is able to drive. She manages her own finances and medications Prior Functional Level (Other details) PMH includes DM2 with A1C 6.4, cervical and lumbar radiculopathy, migraines. Social History Household Members spouse,children Living Arrangements House Number of Floors (Floors) One Floor Number of Stairs To Enter/Railing? 1 step from sidewalk to porch with left rail and one step in to the house. From kitchen to sunken family room, there are two steps down with no rails. Home Environment Standard Height Toilet,Walk in Shower Home Equipment Custom Ski [employer] Additional Social History Comment Pt lives with her spouse, Ryan , who works time broker. 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 M2 PT-IP Current Condition Start: 06/22/21 09:11 Freq: NEEDED Status: Active Protocol: Document 06/22/21 10:26 AW (Rec: 06/22/21 11:33 AW [id number]) Physical Therapy Current Condition Current Condition Evaluation Date 06/22/21 Treatment Diagnosis weakness, falls, impaired mobility and gait Onset Date 06/08/21 M3 PT-IP Subjective Start: 06/22/21 09:11 Freq: NEEDED Status: Active Protocol: Document 06/22/21 10:26 AW (Rec: 06/22/21 11:33 AW [id number]) Subjective Physical Therapy Visit Type Type Initial Evaluation Visit Start Time 09:36 Visit Stop Time 10:26 Total Visit Minutes 50 Notes Co-eval with OT due to level of assist requried for mobility Number of DISBURSING AGENT Visits 0 Physical Therapy Visit Comments Patient Comments I can't put any weight on my legs because the spasms are too bad. Therapy Pain Assessment Pain When Pain Assessed During Mobility Pain Present Pain Present Pain Reported Location Left Leg Intensity 7 Scale Used Numeric (0 - 10) Description Spasm Pain Behaviors Crying,Facial Grimacing, Guarding,Wincing Pain Management Techniques Distraction,Modification of Treatment,Timing of Activity with Medications M4 PT-IP Mobility and Gait Start: 06/22/21 09:11 Freq: NEEDED Status: Active Protocol: Document 06/22/21 10:26 AW (Rec: 06/22/21 12:00 AW [id number]) PT-Bed Mobility Assessment Rolling Type of Rolling Roll to Right Level of Assist Maximal Assistance,1 Person Assistance Supine to Sit Supine to Sit Maximum Assistance,1 Person Assistance Scooting Scooting to Edge of Bed Moderate Assistance PT-Transfer Assessment Sit to and From Stand Sit to and from Stand Maximum Assistance,2 Person Assistance,Use of Upper Extremities Equipment Transfer Assistive Device Gait Belt Orthotic/Prosthetic Devices or Brace: No Transfers Transfer Destination Chair,Bedside Commode Transfer Technique Squat Pivot Transfer Ability Level of Assist Maximum Assistance,2 Person Assistance,Use of Upper Extremities Comments Mobility Comments Pt was lying in bed as PT arrived. She complained of spasm in left foot (circling her arch) and right sesay which increased with movement. With HOB flat, she attempted to roll to her right but needed max assist and then refused rolling. She was able to move both legs toward right EOB and required max assist to right her trunk. In sitting, pt collapsed to her left, complaining of leg pain and needing assist to sit upright. Mod/max A to scoot toward EOB . With PT and OT providing max assist, pt attempted to stand with FWW but was unable to bear enough weight to fully extend her hip and knees. She attempted standing another time with same result. BSC was placed to her left and pt was able to reach across to far arm of BSC with her left hand and squat pivot transfer max A x 2. She sat on the commode but was unable to void. She transferred to the chair going toward her left side again - max A x 2 squat pivot. She was positioned on the chair with call light and tray table in reach as her arrived to visit. PT left as OT assessment continued. Gait Assessment Comments Gait Comments Unable to stand. Stair Climbing Assessment Comments Stair Climbing Comments Not assessed. PT-Balance Assessment Sitting Balance and Reactions Static Sitting Balance Ability Fair Dynamic Sitting Balance Ability Fair Standing Balance and Reactions Static Standing Balance Ability Poor Dynamic Standing Balance Ability Poor Device Used FWW M5 PT-IP Objective Assessments Start: 06/22/21 09:11 Freq: NEEDED Status: Active Protocol: Document 06/22/21 10:26 AW (Rec: 06/22/21 12:00 AW [id number]) Orientation Orientation/Cognition Level of Alertness Alert Orientation Name,Day of Week,Place, Situation Language Function Ability No Deficits Noted Safety Awareness Decreased Safety Awareness Gross Range of Motion Upper Extremity ROM Assessment Left Impaired Impairments History of L rotator cuff dysfunction Lower Extremity ROM Assessment Within Functional Limits Strength Upper Extremity Strength Assessment Bilaterally Impaired Lower Extremity Strength Assessment Bilaterally Impaired Hip R 4-/5; L 3+/5 Knee R 4/5; L 3+/5 Ankle R 4/5; L 3/5 Comments Strength Comments Formal MMT is complicated by pain presentation but pt is globally weak and LLE ~1/2 grade weaker in all muscle groups. Coordination Assessment Gross Coordination Gross Coordination Impaired Assessment Finger to Nose Test Minimal Impairment Sensation Assessment Sensation Gross Sensation WNL Muscle Tone Muscle Tone WNL Yes Other Assessments Other Other Assessments Lumbar ROM not assessed. Pt is observed to move her neck with minimal hesitation in flexion/extension and rotation . Lateral flexion is not observed. Pt has scattered bruises in varying phases of healing consistent with frequent falls. M6 PT-IP Treatment Start: 06/22/21 09:11 Freq: NEEDED Status: Active Protocol: Document 06/22/21 10:26 AW (Rec: 06/22/21 12:00 AW [id number]) Physical Therapy Treatment Education Education Provided Safety M7 PT-IP Assessment and Plan Start: 06/22/21 09:11 Freq: NEEDED Status: Active Protocol: Document 06/22/21 10:26 AW (Rec: 06/22/21 12:00 AW [id number]) PT Summary Assessment and Plan Potential Rehabilitation Potential Good Status of Condition at Evaluation Evolving Summary Impairments Pain,ROM,Strength,Balance, Coordination,Bed Mobility, Transfers,Gait Assessment Summary Danae is a 61 yo woman admitted with increasing weakness and frequent falls in the past 2-4 weeks. She is independent in all regards at baseline. On assessment, she complained of spasms in her left foot and right sesay which limited her ability to participate. She is globally weak with ~1/2 grade less strength in her left leg. She required max assist x 1 for bed mobility and max assist x 2 for squat pivot transfers. She does not have equipment or assist at home and at this time will require SNF rehab to improve strength and mobility independence. Goals Bed Mobility Goal Independent Transfer Goal Standby Assistance,Front Wheeled Walker Gait Goal Standby Assistance,Front Wheel Walker Gait Distance 200 Other Goals - up/down 2 steps no rail SBA Days to Meet Goals 10 Frequency of Treatment Frequency Of Treatment Once a Day Treatment Plan Physical Therapy Treatment Plan Bed Mobility Training,Transfer Training,Gait Training, Therapeutic Exercise,Balance Retraining,Discharge Planning, Hot or Cold Pack,Neuromuscular Re-ed,Coordination Retraining ,Manual Therapy Other Recommendations and Next Treatment bed mobility and transfers; Focus Precautions Other Precautions falls Recommendations To Nursing Amount of Assist Needed 2 Person Assist Discharge Recommendations PT Discharge Recommendations SNF Rehab Transportation Needs at Discharge Wheelchair/Cabulance
--- NOTE | 2021-06-22 10:28 | OT.IP.EVAL ---
Past Medical History (Last Reviewed 06/21/21 @ 23:49 by Nga Mendes MD) Cervical spondylosis with radiculopathy Diabetes Herniated nucleus pulposus, L4-5 History of heart artery stent History of lumpectomy HTN (hypertension) Low grade B-cell lymphoma Neck pain, chronic Surgical History (Last Reviewed 06/21/21 @ 23:49 by Nga Mendes MD) History of heart artery stent History of lumpectomy Status post delivery Status post tubal ligation Occupational Therapy Inpatient Evaluation/Re-Eval M1 PT/OT-IP Prior Functional Status Start: 06/22/21 09:11 Freq: NEEDED Status: Active Protocol: Document 06/22/21 12:31 CGR (Rec: 06/22/21 12:48 CGR [id number]) Medical Review Prior Functional Status Medical History Reviewed Yes Communication Pt is an effective verbal communicator. Mobility and Gait Pt is limited by chronic back pain at baseline but reports independent mobility without assistive device. She notes her balance and strength have gradually declined since [place] with a precipitous decline in the past two weeks. She is falling frequently. Activities of Daily Living and IADL's Independent with all ADL's and IADL's. Pt is able to drive. She manages her own finances and medications Prior Functional Level (Other details) PMH includes DM2 with A1C 6.4, cervical and lumbar radiculopathy, migraines. 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 Social History Household Members spouse Living Arrangements House Number of Floors (Floors) One Floor Number of Stairs To Enter/Railing? 1 step from sidewalk to porch with left rail and one step in to the house. From kitchen to sunken family room, there are two steps down with no rails. Home Environment Standard Height Toilet,Walk in Shower Home Equipment Parts Back Counter Man Additional Social History Comment Pt lives with her spouse, Ryan , who works multimedia engineer. Her 11 yo grandson is at the house daily (830-6) and pt states she home schools him. M1 PT/OT-IP Prior Functional Status Start: 06/22/21 12:31 Freq: NEEDED Status: Active Protocol: Document 06/22/21 12:31 CGR (Rec: 06/22/21 12:48 CGR [id number]) Medical Review Prior Functional Status Medical History Reviewed Yes Communication Pt is an effective verbal communicator. Mobility and Gait Pt is limited by chronic back pain at baseline but reports independent mobility without assistive device. She notes her balance and strength have gradually declined since [place] with a precipitous decline in the past two weeks. She is falling frequently. Activities of Daily Living and IADL's Independent with all ADL's and IADL's. Pt is able to drive. She manages her own finances and medications Prior Functional Level (Other details) PMH includes DM2 with A1C 6.4, cervical and lumbar radiculopathy, migraines. 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 Social History Household Members spouse Living Arrangements House Number of Floors (Floors) One Floor Number of Stairs To Enter/Railing? 1 step from sidewalk to porch with left rail and one step in to the house. From kitchen to sunken family room, there are two steps down with no rails. Home Environment Standard Height Toilet,Walk in Shower Home Equipment Parts Back Counter Man Additional Social History Comment Pt lives with her spouse, Ryan , who works multimedia engineer. Her 11 yo grandson is at the house daily (830-6) and pt states she home schools him. M2 OT-IP Current Condition Start: 06/22/21 12:31 Freq: Status: Active Protocol: Document 06/22/21 12:31 CGR (Rec: 06/22/21 12:48 CGR [id number]) Occupational Therapy Current Condition Current Condition Evaluation Date 06/22/21 Treatment Diagnosis L upper and lower extremity weakness with muscle spasms Diagnosis Onset Date 06/21/21 M3 OT- IP Subjective and Pain Start: 06/22/21 12:31 Freq: Status: Active Protocol: Document 06/22/21 12:31 CGR (Rec: 06/22/21 12:48 CGR [id number]) OT- Subjective Occupational Therapy Visit Type Type Initial Evaluation Visit Start Time 09:40 Visit Stop Time 10:28 Total Visit Minutes 48 Notes co-eval with P.T. OT Pain Assessment Pain When Pain Assessed At Rest Pain Present Pain Present Pain Reported Location Generalized Intensity 7 Scale Used Numeric (0 - 10) Management Techniques Distraction,Modification of Treatment,Re-positioning M4 OT- IP ADL's Start: 06/22/21 12:31 Freq: Status: Active Protocol: Document 06/22/21 12:31 CGR (Rec: 06/22/21 12:48 CGR [id number]) OT [id number] Comments OT Self-Feeding Comments Not meal time OT ADL-Grooming General Evaluation Grooming Ability Standby Assistance Areas Needing Assistance Face Washing Comments OT Grooming Comments washed face and arm pits with set up and donned deoderant OT ADL-Oral Care Comments Oral Care Comments not performed OT ADL-Dressing General Eval Lower Body Dressing Ability Maximum Assistance Areas Needing Assistance Socks OT ADL-Toileting Comments OT Toileting Comments pt transfered to [facility] but was unable to void OT ADL-Bathing Comments OT Bathing Comments not performed M5 OT- IP IADL's Start: 06/22/21 12:31 Freq: Status: Active Protocol: Document 06/22/21 12:31 CGR (Rec: 06/22/21 12:48 CGR [id number]) OT-Instrumental Activities of Daily Living Deficits IADL Deficits Identified Deficits Home Safety Awareness Awareness of Need for Assistance at Home Good Awareness Ability to Problem Solve Emergency Unable to Problem Solve Situations Medication Management Medication Management No Deficits Identified Money Management Money Management No Deficits Identified Meal Preparation Meal Preparation Caregiver Provides Assist State Game Warden State Game Warden Caregiver Provides Assist Driving Driving Comments 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 OT- IP Functional Cognition Start: 06/22/21 12:31 Freq: Status: Active Protocol: Document 06/22/21 12:31 CGR (Rec: 06/22/21 12:48 CGR [id number]) Cognitive Factors Limiting Selfcare Function Cognitive Ability Level of Alertness Alert Patient Orientation Name,Age,Birthday,Month,Date, Year,Day of Week,Place, Situation Attention Span Ability Capable of Focused Attention, Unable to Sustain Attention Ability to Follow Commands Able to Follow One Step Commands with Increased Time, Able to Follow One Step Commands with Repetition Cognitive Comments Cognitive Assessment Comments Pt may benefit from a formal cog assessment OT- Vision and Hearing OT- Hearing Assessment OT- Hearing Assessment WFL OT- Vision Assessment Visual Acuity Glasses For Reading Visual Attentiveness WFL Occular Pursuits WFL Visual Convergence WFL M7 OT- IP Mobility and Balance Start: 06/22/21 12:31 Freq: Status: Active Protocol: Document 06/22/21 12:31 CGR (Rec: 06/22/21 12:48 CGR [id number]) OT- Bed Mobility Assessment Supine to Sit Supine to Sit Assist Maximum Assistance,1 Person Assistance Scooting Scooting to Edge of Bed Standby Assistance OT-Transfer Assessment Sit to and From Stand Sit to and from Stand Maximum Assistance,2 Person Assistance Transfers Transfer Ability Moderate Assistance,2 Person Assistance Technique Transfer Destination Bed,Bedside Commode,Chair Transfer Technique Squat Pivot Devices Transfer Assistive Devices Gait Belt Comments Mobility Comments Attempted sit to stand x2 but pt was unable to perform. Pt then squat transfered to the BSC then to the chair. OT- Gait Assessment Comments Gait Ability Comments not performed OT- Balance Assessment Sitting Balance and Reactions Static Sitting Balance Ability Fair M8 OT- IP Objective Assessments Start: 06/22/21 12:31 Freq: Status: Active Protocol: Document 06/22/21 12:31 CGR (Rec: 06/22/21 12:48 CGR [id number]) OT Gross Range of Motion Upper Extremity Range of Motion Assessment Within Functional Limits OT Strength Upper Extremity Strength Assessment Bilaterally Impaired Comments Strength Comments LUE grossly 3 to 3+/5, pt states it is moving better than yesterday. RUE grossly 3+ to 4-/5 OT- Coordination Assessment Upper Extremity Finger to Nose Test Left UE Impaired Finger Tapping Test Left UE Impaired OT-Muscle Tone Assessment Muscle Tone WNL Yes OT Sensation Assessment Comments Summary Comments Pt states she use to get tingling to the LUE but doesn' t currently Edema Edema Absent M9 OT- IP Assessment and Plan Start: 06/22/21 12:31 Freq: Status: Active Protocol: Document 06/22/21 12:31 CGR (Rec: 06/22/21 12:48 CGR [id number]) OT Summary Assessment and Plan Potential Rehabilitation Potential Good Analytic Complexity at Evaluation High Summary OT Impairments Pain,Strength,Balance, Coordination,Functional Cognition,Functional Mobility, Grooming,Dressing,Toileting, Bathing,Toilet Transfers, Shower Transfers,Activity Tolerance Progress Towards Goals Slow Progress due to Pain,Slow Progress due to Activity Tolerance Assessment Summary Pt presents as a high complexity evaluation s/p admit for fall and generalized L sided weakness. Pt with spasms that impact her ability to perform functional movement. Pt will benefit from SNF at discharge. Goals Grooming Goal Independent Dressing Goal Independent Toileting Goal Independent Bathing Goal Independent Toilet Transfer Goal Independent Shower Transfer Goal Independent Days to Meet Goals 10 Frequency of Treatment Frequency Of Treatment Once a Day Treatment Plan OT Treatment Plan ADL Training,Functional Cognition Training,Functional Mobility,Therapeutic Exercises ,Patient/Family Education, Discharge Planning Other Treatment Recommendations and Next ADLs seated at sink Treatment Focus Discharge Recommendations OT Discharge Recommendations SNF Rehab Transportation Needs at Discharge Wheelchair/Cabulance
--- NOTE | 2021-06-22 15:52 | CM.DANOTE ---
Patient is a 61 yo female who was admitted on 06/21/21 for Syncope/GLF. Pt has [employer] for insurance and her PCP is Dr. Tanvi Crockett. EMR was reviewed. Per MD, pt with hx of GLFs over the past 2 weeks and weakness and pt to work with PT/OT. Per PT/OT, pt required 2PA for mobility today and recommending SNF at d/c at this time pending progress. SW met bedside with pt and explained role and she confirms she lives in [place] with her spouse, who works fullerette, and her 11 yo autistic grandson who is high functioning and pt homeschools him. Pt denies any hx of HH or SNF but experienced both with her mom who lives nearby but has dementia. Pt already feels somewhat improved and is hopeful for home and would be agreeable to HH if needed but aware that if she remains 2PA she likely will need SNF as spouse not home 20/12 and her Dtr also works. SW made referral to [facility] to determine if they can accept her Regen[facility] Maria and aware pt currently OBS Status and [facility] kindly will run her insurance to determine if they could attempt auth or not. SW forgot to ask pt if she is COVID vaccinated but no record of COVID vax under [facility] but pt has as well and may have been vaccinated [facility]? Plan: SW to follow closely for further PT/OT towards determining SNF vs HH and [employer] auth will need to be obtained if SNF. BRIANNE Rain Discharge Planning/Care Management CM Discharge Assessment Start: 06/22/21 15:50 Freq: Status: Active Protocol: Document 06/22/21 15:50 BF (Rec: 06/22/21 15:52 [id number]) Discharge Planning Assessment Assigned Woven Blind Loom Tender BRIANNE Toscano DPOA/Assigned Designee Name spouse Contact Information Ryan [phone] Advance Directives? No Advance Directives on File No History Provided By Patient,Medical Record Has Patient been admitted in last 30 No days? Prior Living Arrangements House Household Members spouse,family Comment Spouse and 11 yo grandson Type of transporation used prior to Drives own vehicle admit Independent with ADL's Yes Is patient alert and oriented? Yes Needs Assistance With Home Chores / Shopping Caregiver for Another Yes: 11 yo grandson Patient/Family Preference Jail Facility,Home with Home Health Comment SNF vs HH Barriers to Discharge No Discharge Plan Jail Facility Transportation Arrangement If SNF, facility van. If home , spouse Referrals Initiated Jail Medicare Choice List Provided Yes Has Agency SNF been contacted Yes Whiteboard Updated in Patient Room with Yes name and ext. # of Woven Blind Loom Tender Review Status In Process Please Provide Date Initial DC 06/22/21 Assessment Was Performed Next Review Type Continued Stay Review
--- NOTE | 2021-06-22 18:36 | PC.NURSE ---
Event Note Patient initially scheduled for MRI at 1045. Upon pick-up patient expressed need to uses bathroom before transfer, patient also hesitant to lie on hard board during scan. Patient asked cytogenetic technician if possible to do scan at later time, cytogenetic technician agreeable and time set for 1415. Upon second MRI attempt patient able to successfully transfer to [facility] for transport to MRI. Patient down for MRI and return to floor within 10min. Per cytogenetic technician patient had anxiety attack when transferring to MRI, patient also refusing MRI scan and request to return to floor and do scan at later time. Per cytogenetic technician unable to repeat scan at later time. cytogenetic technician will reattempt scan tomorrow when patient properly premedicated.
--- NOTE | 2021-06-22 18:42 | RT ---
Pt has refused 4 breathing treatments today and has no intention of taking them while admitted. Will D/C scheduled SVNs and keep PRN albuterol.
[2021-06-22] MEDS: TRAZODONE 100 MG TABLET 200 MG PO (20:07)
[2021-06-23 05:57] LABS: Alanine Aminotransferase 11 IU/L (<35); Albumin 2.9 g/dL (3.5-5.0); Albumin Globulin Ratio 1.1 (1.0-2.8); Alkaline Phosphatase 72 U/L (38-126); Aspartate Aminotransferase 23 IU/L (14-36); BUN Creatinine Ratio 17.8 (6-22); Bilirubin Total 0.2 mg/dL (0.2-1.3); Blood Urea Nitrogen 8 mg/dL (7-17); Calcium 8.4 mg/dL (8.4-10.2); Carbon Dioxide 28 mmol/L (22-32); Chloride 106 mmol/L (98-107); Estimated Glomerular Filt Rate > 60.0 mL/min (>60); Globulin 2.6 g/dL (1.7-4.1); Glucose 126 mg/dL (80-110); HEMOLYSIS < 15 (0-50); Potassium 4.2 mmol/L (3.4-5.1); Sodium 134 mmol/L (137-145); Total Protein 5.5 g/dL (6.3-8.2)
[2021-06-23 05:59] LABS: Add Manual Diff / Slide Review NO; Basophils Absolute Auto 100 /uL (0-100); Basophils Percent Auto 1.5 % (0-2); Eosinophils Absolute Auto 200 /uL (0-450); Eosinophils Percent Auto 5.2 % (2-4); Hematocrit 23.2 % (36-46); Lymphocytes Absolute Auto 1300 /uL (1100-4500); Lymphocytes Percent Auto 26.6 % (25-40); Mean Corpuscular HGB Conc 30.2 % (30-36); Mean Corpuscular Hemoglobin 18.2 PG (26-34); Mean Corpuscular Volume 60.5 fL (80-100); Monocytes Absolute Auto 300 /uL (0-900); Monocytes Percent Auto 6.6 % (3-14); Neutrophils Absolute Auto 2900 /uL (1500-7000); Neutrophils Percent Auto 60.1 % (50-75); Platelet Count 290 X10^3/uL (150-400); Red Blood Cell Count 3.84 X10^6/uL (4.0-5.2); Red Cell Distribution Width 19.3 % (11.6-14.8); White Blood Cell Count 4.8 X10^3/uL (4.5-11.0)
[2021-06-23 06:29] LABS: Anisocytosis 1+; Hypochromasia 3+; Microcytosis 3+
[2021-06-23 07:30] VITALS: BP 152/90; PULSE 94; RESP 18; TEMP 36.7; O2SAT 95
--- NOTE | 2021-06-23 07:50 | P.PN_ITS ---
Subjective Subjective Date Patient Seen: 06/23/21 Time Patient Seen: 07:50 Interval history: Patient is feeling quite sensitive this morning. 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 She is feeling hopeless about her stay in the hospital as she has so many people that depend on her. Her daughter cannot afford childcare for her son and he has never had anybody watch him besides [employer]. When she thought about this last night, it made her sob. Reports that her left arm is working again and denies any numbness or pain except where the blood pressure cuff squeezed her arm. Was not able to tolerate the MRI yesterday due to claustrophobia, doesn't want to do that again. Her restless legs continue to severely bother her and is having so much trouble with that, she is using a bedpan rather than get up to ambulate to the bathroom. She feels like a big burden to the nurses and that her calls are not being answered very promptly. She is able to eat, denies nause or vomiting. Exam Vital Signs (past 8 hours): - 06/22/21 23:52 Temperature 97.5 F L Pulse Rate 83 Respiratory Rate 20 Blood Pressure 144/49 H Pulse Oximetry 96 Oxygen Delivery Method Room Air Oxygen Flow Rate 0 Narrative Exam Narrative: GENERAL: Alert and oriented, appearing stated age and in no acute distress, pale. HEENT: Head normocephalic/atraumatic. Extraocular movements intact. LUNGS: Clear to ausculation bilaterally, no wheezes, rhonchi or rales. CV: Normal S1 and S2 with regular rate and rhythm, no audible murmurs, rubs or gallops. ABDOMEN: Soft, non-tender, non-distended, no organomegaly. Positive bowel sounds. EXTREMITIES: No clubbing, cyanosis, or edema. Tender to palpation over right distal sesay. NEURO: Cranial nerves II through XII grossly intact, no focal deficits. PSYCH: Alert and oriented x 3. SKIN: Scattered bruising, chin, left upper extremity, bilateral lower extremities, right anterior chest.? Objective Labs Result Diagrams: 06/23/21 05:29 06/23/21 05:29 Labs: Laboratory Results - last 24 hr 06/23/21 06/23/21 05:29 05:29 WBC 4.8 RBC 3.84 L Hgb 7.0 L Hct 23.2 L MCV 60.5 L MCH 18.2 L MCHC 30.2 RDW 19.3 H Plt Count 290 Neut % (Auto) 60.1 Lymph % (Auto) 26.6 [place] % (Auto) 6.6 Eos % (Auto) 5.2 H Baso % (Auto) 1.5 Neut # (Auto) 2900 Lymph # (Auto) 1300 [place] # (Auto) 300 Eos # (Auto) 200 Baso # (Auto) 100 RBC Morphology See below Hypochromasia 3+ H Anisocytosis 1+ H Microcytosis 3+ H Sodium 134 L Potassium 4.2 Chloride 106 Carbon Dioxide 28 BUN 8 Creatinine 0.45 L Estimated GFR > 60.0 BUN/Creatinine Ratio 17.8 Glucose 126 H Calcium 8.4 Total Bilirubin 0.2 AST 23 ALT 11 Alkaline Phosphatase 72 Total Protein 5.5 L Albumin 2.9 L Globulin 2.6 Albumin/Globulin Ratio 1.1 PFSH Medical History Cervical spondylosis with radiculopathy Diabetes Herniated nucleus pulposus, L4-5 HTN (hypertension) Low grade B-cell lymphoma Neck pain, chronic Surgical History History of heart artery stent History of lumpectomy Status post delivery Status post tubal ligation Family History Brother Age: 57 Heart disease Father Hypertension Gallstones Diabetes mellitus Mother Gallstones Crohns disease Social History marital status: household members: spouse and family Smoking Status: Current every day smoker alcohol intake: never substance use type: other Assessment & Plan Assessment & Plan narrative: 61-year-old female admitted to hospital for possible CVA due to left upper extremity and left lower extremity weakness, HD#2. 1.? Left lower extremity and left upper extremity weakness with possibility of distant CVA, resolved? Plan: Patient unable to tolerate MRI and not interested in trying again with sedative. Echo reassuring. At this point, unclear what happened but now clinically resolved, high suspicion for CVA. Will continue with telemetry/PT/OT. Will discuss MRI again tomorrow, patient may be amenable at that time. Have discontinued ASA secondary to possibility of GI bleed; patient is on lovenox for DVT prophylaxis. If H/H continue to drop, may need to discontinue this in favor of SCDs. 2.? Iron deficiency anemia of unclear etiology.? -Patient is denying melena or hematochezia. -History of hypermetabolic PET scan in the right colon from cecum to hepatic flexure in 2018, subsequent colonsocopy was negative. -History of NSAID use with celecoxib 200 mg PO BID. Just had old 5 year-old prescription of ibuprofen 800 mg every 6-8 hours as needed refilled on 05/18/21. Plan: Please see #1. Guaiac pending. Holding NSAIDs. Will start IV iron replacement x 5 dosese. Will consult with oncology to query utility of repeat PET now. Anticipate need for repeat EGD/colonoscopy, this could be done as an outpatient. Continue trending CBC. 3. Hypokalemia, new, resolved Plan:? Continue oral potassium. Dash trend labs. 4. Hyponatremia, chronic, baseline 130, improved Plan:? Will continue to trend labs. 5.? Type 2 diabetes, chronic, diet controlled. Plan:? Diabetic diet. 6.? Hypertension, chronic, labile in the hospital Plan:? Continue metoprolol. Holding hydrochlorothiazide secondary to hyp okalemia and hyponatremia. If blood pressure remains overall uncontrolled, will consider starting lisinopril in the hospital. 7.? COPD, mild Plan: Continue ProAir and RT 8. Depression Plan: Continue on duloxetine and trazodone. 9. Coronary artery disease without acute symptoms Plan: Continue on pravastatin and metoprolol. 10. Frequent falls related to weakness with pain diffusely Plan:? Interested to see if this improves with IV iron therapy. Will treat symptoms with oxycodone, cyclobenzaprine, Lyrica, and duloxetine. 11. Left foot pain/muscle spasm of unclear etiology, suspect iron deficiency anemia. Plan:? IV iron. Continue home pregabalin and pramipexole. If IV iron doesn't improve symptoms, may need lumbar spine MRI. 12. Hodgkin's lymphoma without acute issues except for possible contribution to anemia Plan: Please see #2. 13. Restless legs syndrome Plan: IV iron. Continue home lyrica and pramipexole. 14. History of gastric ulcer, distant Plan:? Continue pantoprazole. Code: Full FEN: carb consistent, PO fluids DVT: lovenox GI: protonix Dispo: Anticipate another 1-2 nights.
[2021-06-23] MEDS: OXYCODONE IR 5 MG TABLET PO ×4 (08:11→23:30)
[2021-06-23] MEDS: METOPROLOL ER 50 MG TABLET PO (08:11)
[2021-06-23] MEDS: PANTOPRAZOLE 40 MG VIAL IV (08:11)
[2021-06-23] MEDS: PREGABALIN 75 MG CAPSULE 150 MG PO (08:12)
[2021-06-23] MEDS: DOCUSATE 100 MG CAPSULE PO ×2 (08:15→21:19)
[2021-06-23] MEDS: KCL 20 MEQ IN NS 1,000 ML 125 MEQ IV ×2 (08:15→19:06)
[2021-06-23] MEDS: CYCLOBENZAPRINE 10 MG TABLET PO ×2 (08:15→19:06)
[2021-06-23] MEDS: PRAMIPEXOLE 0.25 MG TABLET 0.125 MG PO ×2 (08:16→21:20)
[2021-06-23] MEDS: hydroCHLOROthiazide 25 MG TABLET PO (08:16)
[2021-06-23] MEDS: DULOXETINE 30 MG CAPSULE PO ×2 (08:16→21:19)
[2021-06-23] MEDS: ENOXAPARIN 40 MG/0.4 ML SYRINGE SUBCUT (08:16)
--- NOTE | 2021-06-23 11:25 | OT.IP.TRT ---
Occupational Therapy Treatment Note M2 OT-IP Current Condition Start: 06/22/21 12:31 Freq: Status: Active Protocol: Document 06/22/21 12:31 CGR (Rec: 06/22/21 12:48 CGR [id number]) Occupational Therapy Current Condition Current Condition Evaluation Date 06/22/21 Treatment Diagnosis L upper and lower extremity weakness with muscle spasms Diagnosis Onset Date 06/21/21 M3 OT- IP Subjective and Pain Start: 06/22/21 12:31 Freq: Status: Active Protocol: Document 06/23/21 12:22 [facility] (Rec: 06/23/21 12:39 [facility] [id number]) OT- Subjective Occupational Therapy Visit Type Type Treatment Note Visit Start Time 10:35 Visit Stop Time 11:25 Total Visit Minutes 33 Notes Pt seen for split treatment [id number] and [id number]. Occupational Therapy Visit Comments Patient Comments Pt having low HH and nursing states okay to see pt if pt is agreeable. Able to see pt with HIDES AND SKINS COLORER due to low HH and decreased activity tolerance. Pt's present at the end of the session. Patient/Caregiver Goals TO go home. OT Pain Assessment Pain When Pain Assessed During Mobility Pain Present Pain Present Pain Reported M4 OT- IP ADL's Start: 06/22/21 12:31 Freq: Status: Active Protocol: Document 06/23/21 12:22 [facility] (Rec: 06/23/21 12:39 [facility] [id number]) OT [id number] Comments OT Self-Feeding Comments Not meal time OT ADL-Grooming Comments OT Grooming Comments Pt states did earlier. OT ADL-Dressing General Eval Lower Body Dressing Ability Maximum Assistance Areas Needing Assistance Socks OT ADL-Toileting Comments OT Toileting Comments Pt not having to go this time. OT ADL-Bathing Comments OT Bathing Comments not performed, to attempt tomorrow if appropriate. M5 OT- IP IADL's Start: 06/22/21 12:31 Freq: Status: Active Protocol: Document 06/22/21 12:31 CGR (Rec: 06/22/21 12:48 CGR [id number]) OT-Instrumental Activities of Daily Living Deficits IADL Deficits Identified Deficits Home Safety Awareness Awareness of Need for Assistance at Home Good Awareness Ability to Problem Solve Emergency Unable to Problem Solve Situations Medication Management Medication Management No Deficits Identified Money Management Money Management No Deficits Identified Meal Preparation Meal Preparation Caregiver Provides Assist Detective Bureau Chief Detective Bureau Chief Caregiver Provides Assist Driving Driving Comments 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 M7 OT- IP Mobility and Balance Start: 06/22/21 12:31 Freq: Status: Active Protocol: Document 06/23/21 12:22 [facility] (Rec: 06/23/21 12:39 [facility] [id number]) OT- Bed Mobility Assessment Supine to Sit Supine to Sit Assist Contact Guard Assistance OT-Transfer Assessment Sit to and From Stand Sit to and from Stand Minimal Assistance,2 Person Assistance Transfers Transfer Ability Minimal Assistance,2 Person Assistance Technique Transfer Destination Bed,Chair Transfer Technique Stand Step Pivot Devices Transfer Assistive Devices Gait Belt Comments Mobility Comments CGA to get to the edge of the bed with increased time. KYLE x2 with FWW to stand . Pt's left knee tends to hyperextend due to weakness. BP 108/32 supine, sitting 114/36 and 132/44 sitting and after transfer 119/45, nursing notified. OT- Balance Assessment Sitting Balance and Reactions Static Sitting Balance Ability Good Dynamic Sitting Balance Ability Fair Standing Balance and Reactions Static Standing Balance Ability Poor M9 OT- IP Assessment and Plan Start: 06/22/21 12:31 Freq: Status: Active Protocol: Document 06/23/21 12:22 [facility] (Rec: 06/23/21 12:39 [facility] [id number]) OT Summary Assessment and Plan Potential Rehabilitation Potential Good Analytic Complexity at Evaluation High Summary OT Impairments Pain,Strength,Balance, Coordination,Functional Cognition,Functional Mobility, Grooming,Dressing,Toileting, Bathing,Toilet Transfers, Shower Transfers,Activity Tolerance Progress Towards Goals Progressing Toward Goals Assessment Summary Pt's increased strength in left arm today and able to assist with transfers more. 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 Scheduled caregiver training with pt's at 3:30pm as he has to work tomorrow. Pt would greatly benefit from skilled rehab. Goals Grooming Goal Independent Dressing Goal Independent Toileting Goal Independent Bathing Goal Independent Toilet Transfer Goal Independent Shower Transfer Goal Independent Days to Meet Goals 9 Frequency of Treatment Frequency Of Treatment Once a Day Treatment Plan OT Treatment Plan ADL Training,Functional Cognition Training,Functional Mobility,Therapeutic Exercises ,Patient/Family Education, Discharge Planning Other Treatment Recommendations and Next shower Treatment Focus Discharge Recommendations OT Discharge Recommendations SNF Rehab Transportation Needs at Discharge Wheelchair/Cabulance
--- NOTE | 2021-06-23 11:28 | PT.IPTN ---
Physical Therapy Treatment Note M2 PT-IP Current Condition Start: 06/22/21 09:11 Freq: NEEDED Status: Active Protocol: Document 06/22/21 10:26 AW (Rec: 06/22/21 11:33 AW [id number]) Physical Therapy Current Condition Current Condition Evaluation Date 06/22/21 Treatment Diagnosis weakness, falls, impaired mobility and gait Onset Date 06/08/21 M3 PT-IP Subjective Start: 06/22/21 09:11 Freq: NEEDED Status: Active Protocol: Document 06/23/21 11:02 [facility] (Rec: 06/23/21 12:17 KS [id number]) Subjective Physical Therapy Visit Type Type Treatment Note Visit Start Time 11:02 Visit Stop Time 11:28 Total Visit Minutes 26 Notes Co-treat w/ OT Number of MEDICAL PROGRAM SPECIALIST Visits 1 Physical Therapy Visit Comments Patient Comments Pt agreeable to work w/ therapy. M4 PT-IP Mobility and Gait Start: 06/22/21 09:11 Freq: NEEDED Status: Active Protocol: Document 06/23/21 11:02 [place] (Rec: 06/23/21 12:17 [facility] [id number]) PT-Bed Mobility Assessment Rolling Level of Assist Contact Guard Assistance,1 Person Assistance Supine to Sit Supine to Sit Contact Guard Assistance Scooting Scooting to Edge of Bed Contact Guard Assistance PT-Transfer Assessment Sit to and From Stand Sit to and from Stand Minimal Assistance,2 Person Assistance,Use of Upper Extremities Equipment Transfer Assistive Device Gait Belt,Front Wheeled Walker Orthotic/Prosthetic Devices or Brace: No Transfers Transfer Destination Chair Transfer Technique Stand step pivot w/ FWW Transfer Ability Level of Assist Minimal Assistance,2 Person Assistance,Use of Upper Extremities Comments Mobility Comments Pt in bed upon arrival from therapy w/ BP: 108/32 and then 114/36 in supine. Pt denied dizziness or lightheadedness. CGA for sup<>sit w/ HOB elevated and scooting EOB. Once EOB, pts BP: 132/44. Pt sit<>stand w/ FWW and Min A x2 for safety due to + L knee buckling. She then completed stand step pivot w/ FWW and Min A x2 and verbal and tactile cues for quad faciliation but still had mild L knee buckling. Pt reorted hyperextending knees at home to avoid buckling. Pts BP: 119 /48 after transfer to chair. Did not complete further ambulation due to low BP and low H&H today, but pt was able to perform 1x10 bilateral ankle pumps, quad sets, and glute sets while seated in chair. Pt left in chair w/ alarm on, all needs in reach, nd in room. Gait Assessment Comments Gait Comments Stand step pivot only w/ Min A x2 and FWW. + l knee buckling . Stair Climbing Assessment Comments Stair Climbing Comments Not assessed. PT-Balance Assessment Sitting Balance and Reactions Static Sitting Balance Ability Good Dynamic Sitting Balance Ability Fair Standing Balance and Reactions Static Standing Balance Ability Fair Dynamic Standing Balance Ability Poor Device Used FWW M5 PT-IP Objective Assessments Start: 06/22/21 09:11 Freq: NEEDED Status: Active Protocol: Document 06/22/21 10:26 AW (Rec: 06/22/21 12:00 AW [id number]) Orientation Orientation/Cognition Level of Alertness Alert Orientation Name,Day of Week,Place, Situation Language Function Ability No Deficits Noted Safety Awareness Decreased Safety Awareness Gross Range of Motion Upper Extremity ROM Assessment Left Impaired Impairments History of L rotator cuff dysfunction Lower Extremity ROM Assessment Within Functional Limits Strength Upper Extremity Strength Assessment Bilaterally Impaired Lower Extremity Strength Assessment Bilaterally Impaired Hip R 4-/5; L 3+/5 Knee R 4/5; L 3+/5 Ankle R 4/5; L 3/5 Comments Strength Comments Formal MMT is complicated by pain presentation but pt is globally weak and LLE ~1/2 grade weaker in all muscle groups. Coordination Assessment Gross Coordination Gross Coordination Impaired Assessment Finger to Nose Test Minimal Impairment Sensation Assessment Sensation Gross Sensation WNL Muscle Tone Muscle Tone WNL Yes Other Assessments Other Other Assessments Lumbar ROM not assessed. Pt is observed to move her neck with minimal hesitation in flexion/extension and rotation . Lateral flexion is not observed. Pt has scattered bruises in varying phases of healing consistent with frequent falls. M6 PT-IP Treatment Start: 06/22/21 09:11 Freq: NEEDED Status: Active Protocol: Document 06/23/21 11:02 KS (Rec: 06/23/21 12:17 KS [id number]) Physical Therapy Treatment Exercises Exercises Ankle Pumps,Gluteal Sets,Quad Sets Education Education Provided Safety Other Treatments Other Treatment Performed Discussed SNF, pt at this time not agreeable but does want and agree to HHPT. Educated pt and on use of FWW at home due to L knee buckling however pt states she is not strong enough to use arms to brace herself w/ FWW if knee buckling occurs. M7 PT-IP Assessment and Plan Start: 06/22/21 09:11 Freq: NEEDED Status: Active Protocol: Document 06/23/21 11:02 KS (Rec: 06/23/21 12:17 KS [id number]) PT Summary Assessment and Plan Potential Rehabilitation Potential Good Status of Condition at Evaluation Evolving Summary Impairments Pain,ROM,Strength,Balance, Coordination,Bed Mobility, Transfers,Gait Progress Towards Goals Slow Progress due to Medical Issues,Slow Progress due to Activity Tolerance Assessment Summary Pt showed improvement w/ bed mobility and transfer today, but remains limited by weakness. She was able to complete stand step pivot transfer w/ FWW but required Min A x2 and verbal andtactile cues to avoid L knee buckling . Pt would benefit from SNF to improve strength and balance, however she prefers HHPT at this time. She is not safe to go home w/o 20/12 assistance due to high fall risk. Goals Bed Mobility Goal Independent Transfer Goal Standby Assistance,Front Wheeled Walker Gait Goal Standby Assistance,Front Wheel Walker Gait Distance 200 Other Goals - up/down 2 steps no rail SBA Days to Meet Goals 10 Frequency of Treatment Frequency Of Treatment Once a Day Treatment Plan Physical Therapy Treatment Plan Bed Mobility Training,Transfer Training,Gait Training, Therapeutic Exercise,Balance Retraining,Discharge Planning, Hot or Cold Pack,Neuromuscular Re-ed,Coordination Retraining ,Manual Therapy Other Recommendations and Next Treatment Pts will be here at 15 Focus :30 (at the earliest) on 06/24 for initiation of caregiver training, but is aware therapy staff may not be available that late in the day due to low census. Precautions Other Precautions falls Recommendations To Nursing Amount of Assist Needed 2 Person Assist Discharge Recommendations PT Discharge Recommendations SNF Rehab Transportation Needs at Discharge Wheelchair/Cabulance
[2021-06-23 11:55] VITALS: BP 115/56; PULSE 79; RESP 16; TEMP 36.4; O2SAT 97
[2021-06-23 20:59] VITALS: BP 147/62; PULSE 83; RESP 16; TEMP 36.7; O2SAT 98
[2021-06-23] MEDS: TRAZODONE 100 MG TABLET 200 MG PO (21:19)
[2021-06-23] MEDS: PRAVASTATIN 20 MG TABLET PO (21:19)
[2021-06-24] VITALS (7 sets, daily range): BP systolic 114–140; BP diastolic 56–98; PULSE 72–92; RESP 14–18; TEMP 35.9–36.7; O2SAT 91–98
[2021-06-24] MEDS: OXYCODONE IR 5 MG TABLET PO ×4 (05:18→21:44)
[2021-06-24 06:17] LABS: Add Manual Diff / Slide Review NO; Basophils Absolute Auto 0 /uL (0-100); Basophils Percent Auto 0.8 % (0-2); Eosinophils Absolute Auto 300 /uL (0-450); Eosinophils Percent Auto 5.4 % (2-4); Hematocrit 23.6 % (36-46); Hemoglobin 7.1 g/dL (12.0-16.0); Lymphocytes Absolute Auto 1900 /uL (1100-4500); Lymphocytes Percent Auto 35.4 % (25-40); Mean Corpuscular HGB Conc 30.2 % (30-36); Mean Corpuscular Hemoglobin 18.4 PG (26-34); Monocytes Absolute Auto 400 /uL (0-900); Monocytes Percent Auto 7.4 % (3-14); Neutrophils Absolute Auto 2700 /uL (1500-7000); Platelet Count 305 X10^3/uL (150-400); Red Blood Cell Count 3.87 X10^6/uL (4.0-5.2); Red Cell Distribution Width 19.7 % (11.6-14.8); White Blood Cell Count 5.3 X10^3/uL (4.5-11.0)
[2021-06-24 06:25] LABS: Alanine Aminotransferase 11 IU/L (<35); Albumin Globulin Ratio 1.2 (1.0-2.8); Alkaline Phosphatase 69 U/L (38-126); Aspartate Aminotransferase 23 IU/L (14-36); BUN Creatinine Ratio 16.7 (6-22); Bilirubin Total 0.2 mg/dL (0.2-1.3); Blood Urea Nitrogen 8 mg/dL (7-17); Calcium 8.6 mg/dL (8.4-10.2); Carbon Dioxide 30 mmol/L (22-32); Chloride 105 mmol/L (98-107); Estimated Glomerular Filt Rate > 60.0 mL/min (>60); Globulin 2.6 g/dL (1.7-4.1); Glucose 114 mg/dL (80-110); HEMOLYSIS < 15 (0-50); Potassium 4.4 mmol/L (3.4-5.1); Sodium 132 mmol/L (137-145); Total Protein 5.6 g/dL (6.3-8.2)
[2021-06-24 06:47] LABS: Anisocytosis 1+; Hypochromasia 3+; Microcytosis 3+
--- NOTE | 2021-06-24 07:54 | PM.PN.1 ---
Subjective Subjective Date Patient Seen: 06/24/21 Time Patient Seen: 07:54 Interval history: Patient did not sleep very well last night. She has been having pain from her recent fall. Reports that she has not been getting any medicine and that nursing has been slow to respond to her requests. Reports that no doctor has seen her since she arrived. Physical therapy worked with her this morning and reports that she is incredibly weak and cannot currently independently ambulate, SNF recommended. Patient reports that her left-sided weakness has been ongoing intermittently over the past few months. The only reason that she came into the hospital was because she fell. Patient again denies that she has any melena or hematochezia although she has not stooled in the hospital. Denies any recent melena or hematochezia. Reports that her left upper extremity continues to improve in terms of coordination and strength set her leg weakness is due to her restless legs syndrome and not one-sided. She is able to manipulate the bed buttons on her left side and snap her fingers. Denies any nausea or vomiting. Appetite is poor. Thinks that her whole problem is secondary to poor nutrition at home. Exam Vital Signs (past 8 hours): - 06/24/21 00:42 06/24/21 05:36 Temperature 98.1 F 97.8 F Pulse Rate 84 78 Respiratory Rate 16 14 Blood Pressure 114/59 L 140/78 Pulse Oximetry 95 98 Oxygen Delivery Method Room Air Oxygen Flow Rate 0 Narrative Exam Narrative: GENERAL:? Alert and oriented b ut speech is tangential and at times pressured. appearing stated age and in no acute distress, pale. HEENT:? Head normocephalic/atraumatic.? Extraocular movements intact. LUNGS:? Clear to ausculation bilaterally, no wheezes, rhonchi or rales. CV:? Normal S1 and S2 with regular rate and rhythm, no audible murmurs, rubs or gallops. ABDOMEN:? Soft, non-tender, non-distended, no organomegaly.? Positive bowel sounds. EXTREMITIES:? No clubbing, cyanosis, or edema.? Nontender today over right distal sesay. NEURO:? Cranial nerves II through XII grossly intact. Left upper extremity has normal range of motion but slightly decreased musical therapist strength, 4/5. Sensation intact. Bilateral lower extremities have normal range of motion with strength 5/5 bilaterally. Sensation intact. Gait not tested. PSYCH:? Alert and oriented but unable to follow conversation completely. Anxious. SKIN: ? Scattered bruising, chin, left upper extremity, bilateral lower extremities, right anterior chest.? Objective Labs Result Diagrams: 06/24/21 05:23 06/24/21 05:23 Labs: Laboratory Results - last 24 hr 06/24/21 06/24/21 05:23 05:23 WBC 5.3 RBC 3.87 L Hgb 7.1 L Hct 23.6 L MCV 61.0 L MCH 18.4 L MCHC 30.2 RDW 19.7 H Plt Count 305 Neut % (Auto) 51.0 Lymph % (Auto) 35.4 [place] % (Auto) 7.4 Eos % (Auto) 5.4 H Baso % (Auto) 0.8 Neut # (Auto) 2700 Lymph # (Auto) 1900 [place] # (Auto) 400 Eos # (Auto) 300 Baso # (Auto) 0 RBC Morphology See below Hypochromasia 3+ H Anisocytosis 1+ H Microcytosis 3+ H Sodium 132 L Potassium 4.4 Chloride 105 Carbon Dioxide 30 BUN 8 Creatinine 0.48 L Estimated GFR > 60.0 BUN/Creatinine Ratio 16.7 Glucose 114 H Calcium 8.6 Total Bilirubin 0.2 AST 23 ALT 11 Alkaline Phosphatase 69 Total Protein 5.6 L Albumin 3.0 L Globulin 2.6 Albumin/Globulin Ratio 1.2 PFSH Medical History Cervical spondylosis with radiculopathy Diabetes Herniated nucleus pulposus, L4-5 HTN (hypertension) Low grade B-cell lymphoma Neck pain, chronic Surgical History History of heart artery stent History of lumpectomy Status post delivery Status post tubal ligation Family History Brother Age: 57 Heart disease Father Hypertension Gallstones Diabetes mellitus Mother Gallstones Crohns disease Social History marital status: household members: spouse and family Smoking Status: Current every day smoker alcohol intake: never substance use type: other Assessment & Plan Assessment & Plan narrative: 61-year-old female admitted to hospital for possible CVA due to left upper extremity and left lower extremity weakness, HD#3. 1.? Left lower extremity and left upper extremity weakness with possibility of distant CVA, improved but with residual weakness? -Echo reassuring.? Plan: At this point, unclear what happened but symptoms have high suspicion for CVA/TIA. Due to concomittant concern for active bleeding with falling H/H that did not rebound this morning, will discontinue lovenox and give blood. ASA has already been discontinued. Will minimize risks by controlling blood pressure and cholesterol with usual home medications. Will continue with telemetry/PT/OT. ?Patient is amenable to trying MRI stroke protocol today with sedative, have ordered preprocedural Ativan. 2.? Iron deficiency anemia of unclear etiology, hemodynamicall stable but H/H not rising and at critical level, 7.06/21.6? -Patient denying melena or hematochezia.? -History of hypermetabolic PET scan in the right colon from cecum to hepatic flexure in 2018, subsequent colonsocopy was negative. -History of NSAID use with celecoxib 200 mg PO BID.? Just had old 5 year-old prescription of ibuprofen 800 mg every 6-8 hours as needed refilled on 05/18/21. -History of distant upper GI bleed. Plan:? Will give 2 units of PRBCs now. Had 200 mg of venofer overnight, plan to continue with 4 more doses over the next 2 weeks to replace iron levels. Surgery consult to discuss EGD/colonoscopy. Will also consult with oncology this morning to determine appropriateness of repeating PET to visualize right colon again. Will increase protonix 40 mg IV to BID dosing. Guaiac pending.? Holding NSAIDs.? 3. Hypokalemia, new, resolved Plan:? Continue oral potassium.? Will trend labs. 4. Hyponatremia, chronic, baseline 130, slight downward trend today at 132 from 134 Plan:? Will continue to trend labs. 5.? Type 2 diabetes, chronic, diet controlled. Plan:? Diabetic diet. 6.? Hypertension, chronic, labile in the hospital, possibly compensatory due to anemia Plan:? Continue metoprolol.? Holding hydrochlorothiazide secondary to hypokalemia and hyponatremia.? Hopefully this will stabilize as blood and iron are repleted. 7.? COPD, mild Plan: Continue ProAir and RT consult. 8. Depression Plan: Continue on duloxetine and trazodone. 9. Coronary artery disease without acute symptoms Plan: Continue on pravastatin and metoprolol. 10. Frequent falls related to weakness with pain diffusely Plan:? Suspect related to critical anemia, repleting with iron and PRBCs. Will continue to treat symptoms with oxycodone, cyclobenzaprine, Lyrica, and duloxetine. 11. Left foot pain/muscle spasm of unclear etiology, suspect iron deficiency anemia. Plan:? IV iron/PRBCs.? Continue home pregabalin and pramipexole.? If IV iron and PRBCs do not improve symptoms, may need lumbar spine MRI. 12. Hodgkin's lymphoma without acute issues except for possible contribution to anemia Plan: Please see #2. 13.? Restless legs syndrome Plan: IV iron/PRBCs.? Continue home lyrica and pramipexole. 14. History of gastric ulcer, distant Plan:? Continue pantoprazole 40 mg IV, but switchiung to BID dosing. Surgery consult as noted above. Code:? Full FEN:? carb consistent, PO fluids DVT:? lovenox GI:? protonix Dispo:? Anticipate another 1-2 nights.
--- NOTE | 2021-06-24 09:45 | PT.IPTN ---
Current Diagnoses Anemia, unspecified (06/21/21) Surgery Performed Operation Date: 06/25/21 09:00 <No data on this case meets the specified criteria> Physical Therapy Treatment Note M2 PT-IP Current Condition Start: 06/22/21 09:11 Freq: NEEDED Status: Active Protocol: Document 06/24/21 09:22 SP (Rec: 06/24/21 15:29 SP [id number]) Physical Therapy Current Condition Current Condition Evaluation Date 06/22/21 Treatment Diagnosis weakness, falls, impaired mobility and gait Onset Date 06/08/21 M3 PT-IP Subjective Start: 06/22/21 09:11 Freq: NEEDED Status: Active Protocol: Document 06/24/21 09:22 SP (Rec: 06/24/21 15:29 SP [id number]) Subjective Physical Therapy Visit Type Type Treatment Note Visit Start Time 09:22 Visit Stop Time 09:45 Total Visit Minutes 23 Notes ROTARY DRUM DYER was in room when arrived, PROGRAM ADVISOR took over hand off. Vitals: seated in chair: 138/65 HR 85 Number of PROGRAM ADVISOR Visits 2 Physical Therapy Visit Comments Patient Comments Pt agreeable to work w/ therapy. Therapy Pain Assessment Pain When Pain Assessed During Mobility Pain Present Pain Present Pain Reported Location Left Leg Intensity 6 Scale Used Numeric (0 - 10) Description Spasm Pain Behaviors Facial Grimacing Pain Management Techniques Distraction,Modification of Treatment,Timing of Activity with Medications M4 PT-IP Mobility and Gait Start: 06/22/21 09:11 Freq: NEEDED Status: Active Protocol: Document 06/24/21 09:22 SP (Rec: 06/24/21 15:29 SP [id number]) PT-Bed Mobility Assessment Sit to Supine Sit to Supine Contact Guard Assistance, Bedrails PT-Transfer Assessment Sit to and From Stand Sit to and from Stand Maximum Assistance,1 Person Assistance,Use of Upper Extremities Equipment Transfer Assistive Device Gait Belt,Front Wheeled Walker Orthotic/Prosthetic Devices or Brace: No Transfers Transfer Destination Bed Transfer Technique Stand Step Pivot Transfer Ability Level of Assist Maximum Assistance,1 Person Assistance,Use of Upper Extremities Comments Mobility Comments ROTARY DRUM DYER inroom when arrived, pt requested get back to bed, PROGRAM ADVISOR stated could provide assist to complete. Pt reported having pain in L>RLE feeling very weak but able to open close LUE now, unable to complete yesterday. Sit>stand Max A x1 w/ FWW, pt unsteady BLEs, cued quad facilitation, stand step pivot chair> bed to R with Max support for trunk stabilty while pt heavy BUE on FWW, little support with therapist's trunk for FWW repositioning,cued to back up fully and side step to HOB w/ FWW. Mod A x1 with cues for reach back and slow descent to sit on EOB. Pt scooted back complete sit>supine w/ bed rail and cues lift LEs fully self, able to complete and center self with cues. Pt had call light and all needs in reach with bed alarmed for safety due to fall risk. Pt commented needs alot more help this transfer, not sure why. Will continue to assess progress. Gait Assessment Comments Gait Comments Unable to assess, Max A for trunk stability and maintain standing on BLE w/ FWW SPT chair> bed, unsteady BLE but did not buckle. Stair Climbing Assessment Comments Stair Climbing Comments unable to assess, max A for transfer w/ FWW. PT-Balance Assessment Sitting Balance and Reactions Static Sitting Balance Ability Good Dynamic Sitting Balance Ability Fair Standing Balance and Reactions Static Standing Balance Ability Poor Dynamic Standing Balance Ability Poor Device Used FWW M5 PT-IP Objective Assessments Start: 06/22/21 09:11 Freq: NEEDED Status: Active Protocol: Document 06/22/21 10:26 AW (Rec: 06/22/21 12:00 AW [id number]) Orientation Orientation/Cognition Level of Alertness Alert Orientation Name,Day of Week,Place, Situation Language Function Ability No Deficits Noted Safety Awareness Decreased Safety Awareness Gross Range of Motion Upper Extremity ROM Assessment Left Impaired Impairments History of L rotator cuff dysfunction Lower Extremity ROM Assessment Within Functional Limits Strength Upper Extremity Strength Assessment Bilaterally Impaired Lower Extremity Strength Assessment Bilaterally Impaired Hip R 4-/5; L 3+/5 Knee R 4/5; L 3+/5 Ankle R 4/5; L 3/5 Comments Strength Comments Formal MMT is complicated by pain presentation but pt is globally weak and LLE ~1/2 grade weaker in all muscle groups. Coordination Assessment Gross Coordination Gross Coordination Impaired Assessment Finger to Nose Test Minimal Impairment Sensation Assessment Sensation Gross Sensation WNL Muscle Tone Muscle Tone WNL Yes Other Assessments Other Other Assessments Lumbar ROM not assessed. Pt is observed to move her neck with minimal hesitation in flexion/extension and rotation . Lateral flexion is not observed. Pt has scattered bruises in varying phases of healing consistent with frequent falls. M6 PT-IP Treatment Start: 06/22/21 09:11 Freq: NEEDED Status: Active Protocol: Document 06/23/21 11:02 KS (Rec: 06/23/21 12:17 KS [id number]) Physical Therapy Treatment Exercises Exercises Ankle Pumps,Gluteal Sets,Quad Sets Education Education Provided Safety Other Treatments Other Treatment Performed Discussed SNF, pt at this time not agreeable but does want and agree to HHPT. Educated pt and on use of FWW at home due to L knee buckling however pt states she is not strong enough to use arms to brace herself w/ FWW if knee buckling occurs. M7 PT-IP Assessment and Plan Start: 06/22/21 09:11 Freq: NEEDED Status: Active Protocol: Document 06/24/21 09:22 SP (Rec: 06/24/21 15:29 SP [id number]) PT Summary Assessment and Plan Potential Rehabilitation Potential Good Status of Condition at Evaluation Evolving Summary Impairments Pain,ROM,Strength,Balance, Coordination,Bed Mobility, Transfers,Gait Progress Towards Goals Slow Progress due to Medical Issues,Slow Progress due to Activity Tolerance Assessment Summary Pt required increased assist for transfers Max x1 chair>bed with support for trunk stability, FWW repositioning and cues quad facilitation unsteady prevent buckling. Pt will require SNF for increased strength and functional independence. Her works fulltiime and unable to assist her. Will continue to assist progress. Goals Bed Mobility Goal Independent Transfer Goal Standby Assistance,Front Wheeled Walker Gait Goal Standby Assistance,Front Wheel Walker Gait Distance 200 Other Goals - up/down 2 steps no rail SBA Days to Meet Goals 10 Frequency of Treatment Frequency Of Treatment Once a Day Treatment Plan Physical Therapy Treatment Plan Bed Mobility Training,Transfer Training,Gait Training, Therapeutic Exercise,Balance Retraining,Discharge Planning, Hot or Cold Pack,Neuromuscular Re-ed,Coordination Retraining ,Manual Therapy Other Recommendations and Next Treatment Bed mob, transfers, gait if Focus able. WIll need to assess stairs if able. Precautions Other Precautions falls Recommendations To Nursing Amount of Assist Needed 2 Person Assist Discharge Recommendations PT Discharge Recommendations SNF Rehab Transportation Needs at Discharge Wheelchair/Cabulance
[2021-06-24] MEDS: DULOXETINE 30 MG CAPSULE PO ×2 (10:09→20:37)
[2021-06-24] MEDS: hydroCHLOROthiazide 25 MG TABLET PO (10:09)
[2021-06-24] MEDS: PANTOPRAZOLE 40 MG VIAL IV ×2 (10:09→20:37)
[2021-06-24] MEDS: DOCUSATE 100 MG CAPSULE PO (10:09)
[2021-06-24] MEDS: CYCLOBENZAPRINE 10 MG TABLET PO ×2 (10:09→17:34)
[2021-06-24] MEDS: PREGABALIN 75 MG CAPSULE 150 MG PO (10:10)
[2021-06-24] MEDS: METOPROLOL ER 50 MG TABLET PO (10:10)
[2021-06-24] MEDS: SODIUM CHLORIDE 0.9% FLUSH 10 ML IV ×2 (10:34→20:37)
[2021-06-24] MEDS: PRAMIPEXOLE 0.25 MG TABLET 0.125 MG PO ×2 (10:50→20:37)
--- NOTE | 2021-06-24 11:05 | CM.DPNOTE ---
Addendum entered by Jazz Gonzales 06/24/21 12:29: Faxed to [facility] and received fax conf. Jazz Gonzales CM Asst. Original Note: Emailed referral packet to [facility] and received receipt, per Mckayla. Jazz Gonzales CM Asst.
--- NOTE | 2021-06-24 13:07 | DI.CT.S_ITS ---
PROCEDURE: CT ABDOMEN PELVIS W CON INDICATIONS: severe anemia, h/o abnormal PET - R colon, r/o mass, lymphoma TECHNIQUE: After the administration of intravenous contrast, axial sections acquired from the lung bases to the pubic symphysis. Coronal and sagittal reformats were performed. For radiation dose reduction, the following was used: automated exposure control, adjustment of mA and/or kV according to patient size. COMPARISON: [facility], CT, CT CHEST ABD PEL W CON, 08/25/2018, 14:56. [facility], NM, NM PET CT FUSION SKULL 2 THIGH, 12/14/2017, 13:44. FINDINGS: Image quality: Excellent. Lung bases: Minimal right pleural effusion. Mild right basilar atelectasis. Minimal left basilar atelectasis. Heart: No significant findings. ABDOMEN: Liver: Unremarkable. Gallbladder: Unremarkable. Biliary ducts: Unremarkable. Pancreas: Unremarkable. Spleen: Unremarkable. Adrenal Glands: Unremarkable. Kidneys and Ureters: Unremarkable. Stomach and Bowel: Remote gastric bypass procedure. Stomach, small bowel loops, and colon are unremarkable. Peritoneum: No abnormal intraperitoneal fluid. No free air. Ventral Wall: No hernias. Abdominal Nodes: No retroperitoneal or mesenteric adenopathy by size criteria. Vessels: Aorta and inferior vena cava are normal in size. PELVIS: Pelvic Organs: Unremarkable. Bladder: Unremarkable. Pelvic Nodes: No enlarged lymph nodes. Miscellaneous: No hernias are seen. Bones: Lumbar degenerative change. No lytic or blastic bony lesions. No compression fractures. IMPRESSION: 1. No evidence of acute abdominal process. 2. No evidence of metastatic disease in the abdomen and pelvis. 3. Minimal right pleural effusion, mild right basilar atelectasis, minimal left basilar atelectasis. Dictated by: Vasquez Arora M.D. on 06/24/2021 at 15:12 Approved by: Vasquez Arora M.D. on 06/24/2021 at 15:20
--- NOTE | 2021-06-24 15:07 | PM.CN ---
History of Present Illness Consult details Date Patient Seen: 06/24/21 Time Patient Seen: 15:08 Chief complaint: Syncope, glf Reason for consult: Anemia Narrative: 61-year-old woman admitted for syncope and stroke workup. She is noted to be anemic with a hemoglobin of 7. She reports no melena or hematochezia. No hematemesis. She did have a colonoscopy in [address] Jones which was normal. This was performed because she had had a PET scan also in 2018 because of lymphoma that showed some questionable signal intensity in the colon. Following the negative colonoscopy this was felt to be artifact. She reports that she has always been anemic and she thinks she is just at her baseline. I do not have access to any of her labs from before this admission. Meds Home Medications and Allergies Home Medications Medication Instructions Recorded Confirmed Type ASPIRIN (Aspirin Ec) 81 mg PO Q DAY #0 11/08/09 06/21/21 History HYDROCHLOROTHIAZIDE (Hydrodiuril / 25 mg PO DAILY #0 11/08/09 06/21/21 History Hctz) Metoprolol Succinate (Toprol Xl) 100 mg PO QAM #0 11/08/09 06/21/21 History fluticasone 250 mcg-salmeterol 50 1 puff INH BID #60 dose 01/01/16 06/21/21 Rx mcg/dose blistr powdr for inhalation (Advair Diskus) promethazine 25 mg tablet 25 mg PO Q6HP PRN #120 tab 03/01/16 06/21/21 Rx duloxetine 30 mg capsule,delayed 30 mg PO SEE INSTRUCTIONS #90 cap 06/10/16 06/21/21 Rx release (Cymbalta) cyclobenzaprine 10 mg tablet 10 mg PO TIDP PRN #90 tab 08/10/16 06/21/21 Rx pravastatin 20 mg tablet 20 mg PO DAILY 12/28/17 06/21/21 History pregabalin 150 mg capsule (Lyrica) 150 mg PO DAILY cap 12/28/17 06/21/21 History albuterol sulfate 90 mcg/actuation 1 puff INH QIDP PRN 06/21/21 06/21/21 History aerosol inhaler (Ventolin HFA) trazodone 100 mg tablet 100 mg PO PC 06/21/21 06/21/21 History Allergies Allergy/AdvReac Type Severity Reaction Status Date / Time Penicillins [PENICILLINS] Allergy Severe Swelling Verified 06/22/21 12:10 of Lip/Tongue/Throat latex [LATEX] Allergy Mild hives/rash Verified 05/16/20 13:38 Exam Vital Signs (past 8 hours): - 06/24/21 07:30 06/24/21 08:05 Temperature 96.6 F L Pulse Rate 72 Respiratory Rate 18 Blood Pressure 128/98 H Pulse Oximetry 98 91 Oxygen Delivery Method Room Air Oxygen Flow Rate 0 Const General: healthy appearing and comfortable Resp Effort & Inspection: normal respiratory effort Objective Labs Result Diagrams: 06/24/21 05:23 06/24/21 05:23 Labs: Laboratory Results - last 24 hr 06/24/21 06/24/21 06/24/21 05:23 05:23 14:10 WBC 5.3 RBC 3.87 L Hgb 7.1 L Hct 23.6 L MCV 61.0 L MCH 18.4 L MCHC 30.2 RDW 19.7 H Plt Count 305 Neut % (Auto) 51.0 Lymph % (Auto) 35.4 Darke % (Auto) 7.4 Eos % (Auto) 5.4 H Baso % (Auto) 0.8 Neut # (Auto) 2700 Lymph # (Auto) 1900 Darke # (Auto) 400 Eos # (Auto) 300 Baso # (Auto) 0 RBC Morphology See below Hypochromasia 3+ H Anisocytosis 1+ H Microcytosis 3+ H Sodium 132 L Potassium 4.4 Chloride 105 Carbon Dioxide 30 BUN 8 Creatinine 0.48 L Estimated GFR > 60.0 BUN/Creatinine Ratio 16.7 Glucose 114 H Calcium 8.6 Total Bilirubin 0.2 AST 23 ALT 11 Alkaline Phosphatase 69 Total Protein 5.6 L Albumin 3.0 L Globulin 2.6 Albumin/Globulin Ratio 1.2 Blood Type B Positive Antibody Screen Negative Crossmatch See Detail [facility] Medical History Cervical spondylosis with radiculopathy Diabetes Herniated nucleus pulposus, L4-5 HTN (hypertension) Low grade B-cell lymphoma Neck pain, chronic Surgical History History of heart artery stent History of lumpectomy Status post delivery Status post tubal ligation Family History Brother Age: 57 Heart disease Father Hypertension Gallstones Diabetes mellitus Mother Gallstones Crohns disease Social History marital status: household members: spouse and family Tobacco & Substance Use Smoking Status: Current every day smoker alcohol intake: never substance use type: other Assessment & Plan Assessment and plan (1) Anemia: Status: Acute Plan 61-year-old woman with anemia. She is not particularly keen on the idea of doing a bowel prep for a colonoscopy given that she had a normal colonoscopy in 2018. We discussed few options. We could do nothing. We could start with just an upper endoscopy to rule out upper GI causes such as ulcers and only proceed with a colonoscopy if the upper endoscopy was normal. Or we could start her on a prep tonight and do an upper and lower endoscopy procedure tomorrow. She prefers the middle option to have an EGD 1st and colonoscopy only if needed. Since she is not NPO today we will put her on the schedule for Dr. Dr. Glass tomorrow. Time Spent With Patient Critical Care time: I spent a total of [] minutes of critical care time on this patient's care today; this time is exclusive of procedural time.
--- NOTE | 2021-06-24 16:00 | OT.IP.TRT ---
Current Diagnoses Anemia, unspecified (06/21/21) Surgery Performed Operation Date: 06/25/21 09:00 <No data on this case meets the specified criteria> Occupational Therapy Treatment Note M2 OT-IP Current Condition Start: 06/22/21 12:31 Freq: Status: Active Protocol: Document 06/22/21 12:31 CGR (Rec: 06/22/21 12:48 CGR [id number]) Occupational Therapy Current Condition Current Condition Evaluation Date 06/22/21 Treatment Diagnosis L upper and lower extremity weakness with muscle spasms Diagnosis Onset Date 06/21/21 M3 OT- IP Subjective and Pain Start: 06/22/21 12:31 Freq: Status: Active Protocol: Document 06/24/21 16:01 [facility] (Rec: 06/24/21 16:11 [facility] [id number]) OT- Subjective Occupational Therapy Visit Type Type Treatment Note Visit Start Time 15:45 Visit Stop Time 16:00 Total Visit Minutes 15 Occupational Therapy Visit Comments Patient Comments Pt's present for caregiver training, however pt suppose to be getting blood today due to low HH and therefore to do at a later time. Patient/Caregiver Goals Pt insistent that she is going home with will have family around to assist her . Pt refusing to go to skilled rehab partially due to cost per pt and that her father at one. OT Pain Assessment Pain When Pain Assessed During Mobility Pain Present Pain Present Pain Reported M4 OT- IP ADL's Start: 06/22/21 12:31 Freq: Status: Active Protocol: Document 06/24/21 16:01 [facility] (Rec: 06/24/21 16:11 [facility] [id number]) OT ADL-Toileting Comments OT Toileting Comments Spoke of equipment needs and would benefit from a BSC. OT ADL-Bathing Comments OT Bathing Comments Pt would benefit from shower chair. M5 OT- IP IADL's Start: 06/22/21 12:31 Freq: Status: Active Protocol: Document 06/22/21 12:31 CGR (Rec: 06/22/21 12:48 CGR [id number]) OT-Instrumental Activities of Daily Living Deficits IADL Deficits Identified Deficits Home Safety Awareness Awareness of Need for Assistance at Home Good Awareness Ability to Problem Solve Emergency Unable to Problem Solve Situations Medication Management Medication Management No Deficits Identified Money Management Money Management No Deficits Identified Meal Preparation Meal Preparation Caregiver Provides Assist Manufacturing Worker Manufacturing Worker Caregiver Provides Assist Driving Driving Comments 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 Pt is open to having home health come to to house. Pt would benefit from a wc, but states a wc will not fit in the house. OT- Balance Assessment Sitting Balance and Reactions Static Sitting Balance Ability Good Dynamic Sitting Balance Ability Fair Standing Balance and Reactions Static Standing Balance Ability Poor M9 OT- IP Assessment and Plan Start: 06/22/21 12:31 Freq: Status: Active Protocol: Document 06/24/21 16:01 [facility] (Rec: 06/24/21 16:11 [facility] [id number]) OT Summary Assessment and Plan Potential Rehabilitation Potential Good Analytic Complexity at Evaluation High Summary OT Impairments Pain,Strength,Balance, Coordination,Functional Cognition,Functional Mobility, Grooming,Dressing,Toileting, Bathing,Toilet Transfers, Shower Transfers,Activity Tolerance Progress Towards Goals Slow Progress due to Medical Issues Assessment Summary Pt waiting on getting blood today and able to talk at length with pt and pt;s about equipment needs. Goals Grooming Goal Independent Dressing Goal Independent Toileting Goal Independent Bathing Goal Independent Toilet Transfer Goal Independent Shower Transfer Goal Independent Days to Meet Goals 10 Frequency of Treatment Frequency Of Treatment Once a Day Treatment Plan OT Treatment Plan ADL Training,Functional Cognition Training,Functional Mobility,Therapeutic Exercises ,Patient/Family Education, Discharge Planning Other Treatment Recommendations and Next Stand at sink with recliner Treatment Focus behind for groominn needs. Discharge Recommendations OT Discharge Recommendations Home with 24/7 Assist Available,Home Health,SNF Rehab Other Discharge Recommendations Pending caregiver training SNF versus home with 24/7 and HH. Pt is adamantly refusing SNF Transportation Needs at Discharge Private Vehicle,Wheelchair/ Cabulance
--- NOTE | 2021-06-24 16:40 | CM.DANOTE ---
DCP/continued: Reviewed chart. Spoke with Dr. Crockett this AM whom reports that patient severely anemic. Patient now inpatient status. Dr. Crockett anticipates patient will need SNF when stable. Patient with MRI scheduled for today. Dr. Crockett also reports patient has some confusion related to her anemia. Asked KATI/Jazz to place call to [facility] SNF/CSV. [facility] Patient not currently COVID vaccinated nor does she want to be. Unclear at this time if patient will be in agreement to SNF. Patient currently max assist and unable to manage at home. P: Home with home health if improved vs. SNF when medically stable. [facility] reviewing. OLIVIA
[2021-06-24] MEDS: PRAVASTATIN 20 MG TABLET PO (20:38)
[2021-06-24] MEDS: TRAZODONE 100 MG TABLET 200 MG PO (21:44)
[2021-06-24 23:34] LABS: COVID19 - ADMIT (NP swab/PCR) Negative (Negative)
[2021-06-25] VITALS (27 sets, daily range): BP systolic 90–150; BP diastolic 48–79; PULSE 64–82; RESP 7–20; TEMP 36.1–36.9; O2SAT 95–100; BMI 27.9
--- NOTE | 2021-06-25 | PATH_ITS ---
[facility] Accession Number: [id number] . 01 Material submitted: . PART A: gastrointestinal site - GASTRIC BIOPSIES PART B: esophagus, E-G Junction - GE JUNCTION BIOPSIES . 02 Diagnosis: A. Stomach, Biopsies: Body type mucosa with mild chronic gastritis. Negative for Helicobacter by immunohistochemistry. Negative for intestinal metaplasia. Negative for dysplasia and malignancy. . B. Gastroesophageal Junction, Biopsies: Squamous mucosa with detached strip of reactive squamous epithelium with parakeratosis. Please see comment. Intraepithelial eosinophils are not increased. Negative for dysplasia and malignancy. . [facility] 06/30/2021 1545 Local . 02 Comment: B. The esophageal biopsy shows parakeratosis with long detached fragments of superficial epithelium with reactive changes. No fungal organisms are identified, confirmed by PAS stain. No distinct bullae are visible. No significant active inflammation or viral cytopathic changes are seen. The features raise the consideration of esophagitis dissecans superficialis (sloughing esophagitis), a rare, usually self-limiting histology that has been associated with certain oral medications, stricture/trauma, and cigarette smoking. There is no evidence of dysplasia or malignancy. . 02 Electronically signed: . Willa Cameron MD, Pathologist NPI- [id number] . 01 Gross description: . Part A: GASTRIC BIOPSIES: Received in formalin are 2 fragment(s) of davis, soft tissue measuring 0.4 x 0.3 x 0.2 cm to 0.1 x 0.1 x 0.1 cm submitted entirely in 1 cassette(s) Part B: GE JUNCTION BIOPSIES: Received in formalin are 2 fragment(s) of davis, soft tissue measuring 0.3 x 0.3 x 0.1 cm to 0.3 x 0.2 x 0.1 cm submitted entirely in 1 cassette(s) /TRC 06/26/2021 1714 Local . 02 Microscopic: . A. An immunohistochemical stain was performed to evaluate for Helicobacter organisms and is negative. The control stain showed appropriate reactivity. . B. A PAS stain was performed to evaluate for fungal organisms and is negative. The control stain showed appropriate reactivity. . * This test was developed and its performance characteristics determined by [facility]. It has not been cleared or approved by the U.S. Food and Drug Administration. The FDA has determined that such clearance or approval is not necessary. This test is used for clinical purposes. It should not be regarded as investigational or for research. . 02 Pathologist provided ICD-10: R11.13 . 02 CPT . 918791, 384555, 572815, G23325 Performed at: 01 [facility] Cytology [address] [id number] MD John Page MD Phone: [phone] Performed at: 02 [facility] [id number] [place] [id number] MD Willa Cameron MD Phone: [phone]
--- NOTE | 2021-06-25 05:11 | PM.PN.1 ---
Subjective Subjective Date Patient Seen: 06/25/21 Time Patient Seen: 05:11 Interval history: Patient declined MRI and blood yesterday, declines again today. States that she just doesn't feel right about getting blood and that she doesn't want the mask on her face in the MRI. Understands that severe anemia could cause a MO and in setting of a possible stroke, she is at high risk for poor prognosis if she were able to pull through such an event. She is certain that she did not have a stroke because there was no time for it. EGD completed this morning and no source of bleeding was found. Patient has declined a colonoscopy. Continues to have a poor appetite and no ability to self-ambulate. States that she is very tired and asks to be put back onto her sleeping pills. Even my daughter gets sleeping pills. States that she had her first heart attack because she couldn't sleep. Chart review shows that she was fired from her pain clinic in 2017 for violating her pain contract by having BZDs in her urine. States that I was the doctor that took her off narcotics but her care with me started 2 years later. Legs continue to bother her, very restless. Has achy pain across her neck and back from her fall. Exam Vital Signs (past 8 hours): - 06/25/21 00:57 06/25/21 01:00 06/25/21 05:00 Temperature 97.8 F Pulse Rate 80 Respiratory Rate 17 Blood Pressure 150/69 H Pulse Oximetry 97 95 97 Oxygen Delivery Method Room Air Oxygen Flow Rate 0 Narrative Exam Narrative: GENERAL:? Drowsy but oriented; recall of historical events is altered. Appearing stated age and in no acute distress, very pale. HEENT:? Head normocephalic/atraumatic.? Extraocular movements intact. LUNGS:? Clear to ausculation bilaterally, no wheezes, rhonchi or rales. CV:? Normal S1 and S2 with regular rate and rhythm, no audible murmurs, rubs or gallops. ABDOMEN:? Soft, non-tender, non-distended, no organomegaly.? Positive bowel sounds. EXTREMITIES:? No clubbing, cyanosis, or edema.? NEURO:? Cranial nerves II through XII grossly intact.? Left upper extremity has normal range of motion but slightly decreased stretch press operator strength, 4/5.? Finger to nose reduced. Fine motor reduced on left side, unable to coordinate with her right hand to put her hair in a ponytail. Sensation intact.? Bilateral lower extremities have normal range of motion with strength 4/5 on left.? Left heel to sesay reduced. Sensation intact.? Gait not tested. PSYCH:? Alert and oriented but unable to follow conversation completely, falling asleep in the middle of speaking. Short and predatory animal exterminator recall reduced. Anxious. SKIN: ? Scattered bruising, chin, left upper extremity, bilateral lower extremities, right anterior chest.? Objective Labs Result Diagrams: 06/25/21 04:53 06/25/21 04:53 Labs: Laboratory Results - last 24 hr 06/24/21 06/24/21 06/24/21 05:23 05:23 14:10 WBC 5.3 RBC 3.87 L Hgb 7.1 L Hct 23.6 L MCV 61.0 L MCH 18.4 L MCHC 30.2 RDW 19.7 H Plt Count 305 Neut % (Auto) 51.0 Lymph % (Auto) 35.4 [place] % (Auto) 7.4 Eos % (Auto) 5.4 H Baso % (Auto) 0.8 Neut # (Auto) 2700 Lymph # (Auto) 1900 [place] # (Auto) 400 Eos # (Auto) 300 Baso # (Auto) 0 RBC Morphology See below Hypochromasia 3+ H Anisocytosis 1+ H Microcytosis 3+ H Sodium 132 L Potassium 4.4 Chloride 105 Carbon Dioxide 30 BUN 8 Creatinine 0.48 L Estimated GFR > 60.0 BUN/Creatinine Ratio 16.7 Glucose 114 H Calcium 8.6 Total Bilirubin 0.2 AST 23 ALT 11 Alkaline Phosphatase 69 Total Protein 5.6 L Albumin 3.0 L Globulin 2.6 Albumin/Globulin Ratio 1.2 SARS-CoV-2 (PCR) Blood Type B Positive Antibody Screen Negative Crossmatch See Detail 06/24/21 22:40 WBC RBC Hgb Hct MCV MCH MCHC RDW Plt Count Neut % (Auto) Lymph % (Auto) [place] % (Auto) Eos % (Auto) Baso % (Auto) Neut # (Auto) Lymph # (Auto) [place] # (Auto) Eos # (Auto) Baso # (Auto) RBC Morphology Hypochromasia Anisocytosis Microcytosis Sodium Potassium Chloride Carbon Dioxide BUN Creatinine Estimated GFR BUN/Creatinine Ratio Glucose Calcium Total Bilirubin AST ALT Alkaline Phosphatase Total Protein Albumin Globulin Albumin/Globulin Ratio SARS-CoV-2 (PCR) Negative Blood Type Antibody Screen Crossmatch [facility] Medical History Cervical spondylosis with radiculopathy Diabetes Herniated nucleus pulposus, L4-5 HTN (hypertension) Low grade B-cell lymphoma Neck pain, chronic Surgical History History of heart artery stent History of lumpectomy Status post delivery Status post tubal ligation Family History Brother Age: 57 Heart disease Father Hypertension Gallstones Diabetes mellitus Mother Gallstones Crohns disease Social History marital status: household members: spouse and family Smoking Status: Current every day smoker alcohol intake: never substance use type: other Assessment & Plan Assessment & Plan narrative: 61-year-old female admitted to hospital for possible CVA due to left upper extremity and left lower extremity weakness, HD#4. 1.? Left lower extremity and left upper extremity weakness with possibility of distant CVA, unchanged, residual weakness? -Echo/CT reassuring.? -MRI declined Plan:? High clinical suspicion for CVA/TIA.? High risk of ASCVD with critical anemia. Patient certainly is altered by her severe anemia, drifting into and out of conversation. When she is mentating, she is able to orient herself x 3 and adamantly declines an MRI. Had long discussion with about this at the end of the day today and he confirms that she understands the severity of her anemia, acute and chronic ASCVD risk factors, and does not want to proceed with either MRI or a blood transfusion. Will minimize risks by controlling blood pressure and cholesterol with usual home medications.? Will continue telemetry/PT/OT. ?Holding blood thinner due to fall risk. Plan for SNF with PT/OT but in anticipation of patient refusing that, may need to go with PT/OT. 2.? Iron deficiency anemia, critical, suspect secondary to nutrition due to gastric bypass surgery ?-History of hypermetabolic PET scan in the right colon from cecum to hepatic flexure in 2018, subsequent colonsocopy was negative. -History of NSAID use with celecoxib 200 mg PO BID.? Just had old 5 year-old prescription of ibuprofen 800 mg every 6-8 hours as needed refilled on 05/18/21. -History of distant upper GI bleed, EGD today reassuring, appreciate consult from general surgery -Discussed case with Dr. Ham, oncology on 06/24/21. He recommended PET or CT then colonoscopy again to evaluate right colon lesion. Plan:? Patient has declined blood and colonoscopy. Amenable to iron, will infuse 300 mg today.? Continue protonix 40 mg IV to BID dosing.? Guaiac pending.? Holding NSAIDs.? Please see #1. 3. 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 Awaiting full lab workup. 4. Hyponatremia, chronic, baseline 130, stable Plan:? Will continue to trend labs. 5.? Type 2 diabetes, chronic, diet controlled. Plan:? Diabetic diet. 6.? Hypertension, chronic, labile in the hospital, likely compensatory due to anemia Plan:? Continue metoprolol.? Holding hydrochlorothiazide secondary to hypokalemia and hyponatremia.? 7.? COPD, mild Plan: Continue ProAir and RT consult. 8. Depression/anxiety Plan: Continue on duloxetine and trazodone. Patient appears to be fearful of proceeding with additional work-up. Did talk with patient about goals of care, including palliation if not interested in treatment. Will think about this and talk more tomorrow. 9. Coronary artery disease without acute symptoms Plan: Continue on pravastatin and metoprolol. 10. Frequent falls related to weakness with pain diffusely Plan:? Suspect related to critical anemia, repleting with iron, please see #1-2. Will continue to treat symptoms with oxycodone, cyclobenzaprine, Lyrica, and duloxetine. 11. Left foot pain/muscle spasm of unclear etiology, suspect iron deficiency anemia. Plan:? IV iron.? Continue home pregabalin and pramipexole.? 12. Hodgkin's lymphoma without acute issues except for possible contribution to anemia Plan: Dr. Ham, oncology consutling. Stable. 13.? Restless legs syndrome Plan: IV iron.? Continue home lyrica and pramipexole. 14. History of gastric ulcer, distant -EGD reassuring Plan:? Continue pantoprazole 40 mg IV, but switchiung to BID dosing.? Code:? Full FEN:? carb consistent, PO fluids DVT:? lovenox GI:? protonix Dispo:? Anticipate another 1-2 nights. Time Spent With Patient Critical Care time: Greater than 45 minutes was spent in physician prolonged services from 19:30 to 20:16. This included communicating with the .
[2021-06-25 05:30] LABS: Lactate Dehydrogenase 404 U/L (313-618)
[2021-06-25 05:31] LABS: Alanine Aminotransferase 12 IU/L (<35); Albumin 3.2 g/dL (3.5-5.0); Albumin Globulin Ratio 1.2 (1.0-2.8); Alkaline Phosphatase 76 U/L (38-126); Aspartate Aminotransferase 23 IU/L (14-36); BUN Creatinine Ratio 15.8 (6-22); Bilirubin Total 0.2 mg/dL (0.2-1.3); Blood Urea Nitrogen 9 mg/dL (7-17); Calcium 8.9 mg/dL (8.4-10.2); Carbon Dioxide 31 mmol/L (22-32); Chloride 99 mmol/L (98-107); Estimated Glomerular Filt Rate > 60.0 mL/min (>60); Globulin 2.6 g/dL (1.7-4.1); Glucose 130 mg/dL (80-110); HEMOLYSIS < 15 (0-50); Potassium 4.2 mmol/L (3.4-5.1); Sodium 132 mmol/L (137-145); Total Protein 5.8 g/dL (6.3-8.2)
[2021-06-25 05:34] LABS: Add Manual Diff / Slide Review NO; Basophils Absolute Auto 0 /uL (0-100); Basophils Percent Auto 0.8 % (0-2); Eosinophils Absolute Auto 200 /uL (0-450); Eosinophils Percent Auto 4.7 % (2-4); Lymphocytes Absolute Auto 1500 /uL (1100-4500); Lymphocytes Percent Auto 31.5 % (25-40); Mean Corpuscular HGB Conc 31.1 % (30-36); Mean Corpuscular Hemoglobin 18.7 PG (26-34); Mean Corpuscular Volume 60.1 fL (80-100); Monocytes Absolute Auto 300 /uL (0-900); Monocytes Percent Auto 6.5 % (3-14); Neutrophils Absolute Auto 2700 /uL (1500-7000); Neutrophils Percent Auto 56.5 % (50-75); Platelet Count 333 X10^3/uL (150-400); Red Blood Cell Count 3.66 X10^6/uL (4.0-5.2); Red Cell Distribution Width 19.6 % (11.6-14.8); White Blood Cell Count 4.8 X10^3/uL (4.5-11.0)
[2021-06-25 05:41] LABS: Hemoglobin 6.8 g/dL (12.0-16.0)
[2021-06-25] MEDS: CYCLOBENZAPRINE 10 MG TABLET PO (05:51)
[2021-06-25] MEDS: OXYCODONE IR 5 MG TABLET PO ×4 (05:55→23:09)
--- NOTE | 2021-06-25 05:57 | PC.NURSE ---
Critical H&H of 6.8 / 22.0. Dr. Crockett contacted and blood transfusion ordered. We both agreed refusal by patient was likely due to blood transfusion refusal yesterday. Patient notified of critical values, their meaning, and the risks of refusing treatment. Patient declined transfusion. Dr. Crockett states she will speak with patient during morning rounds.
[2021-06-25 06:14] LABS: Anisocytosis 1+; Hypochromasia 3+; Microcytosis 3+
[2021-06-25 06:26] LABS: Vitamin D 25 Hydroxy (D3) < 12.8 ng/mL (30.0-100.0)
[2021-06-25 06:37] LABS: Folate 6.1 ng/mL (2.76-20.0); Vitamin B12 324 pg/mL (239-931)
[2021-06-25] MEDS: LACTATED RINGERS 1,000 ML 42 ML IV (08:29)
--- NOTE | 2021-06-25 08:34 | SUR.HOLD ---
0815-patient picked up on 222-a via bed for EGD. Patient confirmed id//procedure. Refused bathroom. off tele for transfer. to preop. multiple bruise left arm and generalized thru body=states had fallen recentley. HH reported low-patient ordered blood, but refused it for safety reasons. Becomes upset if we discuss it. admission completed. awaiting Dr Glass for consenting.
--- NOTE | 2021-06-25 08:49 | PM.PREOP ---
Pre-operative Note COVID-19 Criteria for continued procedure: Expected advancement of disease process Interval Note History & Physical reviewed/Exam performed by Physician: Yes Changes to H&P: No
[2021-06-25] MEDS: LIDOCAINE 4% SOLN 50 ML 20 ML TOP (08:57)
[2021-06-25] MEDS: MIDAZOLAM 5 MG/5 ML VIAL IV (08:58)
[2021-06-25] MEDS: fentaNYL 250 MCG/5 ML INJ IV (08:58)
--- NOTE | 2021-06-25 09:10 | PM.OP.EGD ---
Operative Date/Time/Diagnoses Date of procedure: 06/25/21 Time of procedure: 09:11 Pre-op diagnosis: anemia Post-op diagnosis: other (gastritis) Procedure & Clinicians Study performed: Esophagoduodenoscopy Same procedure as scheduled: Yes Indications: 61-year-old history gastric bypass admitted to the hospital with anemia. Surgeon: Alex Glass Procedure Notes Procedure in detail: Patient placed in left lateral decubitus position. Time out was performed. Procedural sedation was administered with Versed and Fentanyl. A bite block was placed. the scope was inserted into the mouth and advanced through the esophagus and into the stomach. The anatomy of the stomach was consistent with a Rosi-en-Y gastric bypass. The anastomosis was widely patent without evidence of a marginal ulcer. Stomach was notable for mild gastritis was no active bleeding or discrete ulcer. Biopsy of the stomach was performed with forceps. The small bowel was entered and its appearance was normal. The scope was retroflexed within the stomach and there was no hiatal hernia. GE junction was seen at 38 cm the incisors it was ragged in its appearance no active bleeding biopsies were performed with forceps. There were no esophageal masses or strictures. Stomach was desufflated and scope removed. Patient tolerated procedure well. Findings: gastritis Specimen(s): other (gastric, GE junction) Complications: none Impression: gastritis Post-procedure Recommendations: Continue medication(s) Plan for aftercare: continue protonix, follow biopsies Disposition: Acute Care
--- NOTE | 2021-06-25 09:40 | OT.IPNOTE ---
Pt having low HH and also getting EGD today, hold OT today.
--- NOTE | 2021-06-25 10:50 | DIET.CONS ---
Addendum entered by Rose Garcia 06/25/21 11:09: [facility] pt start iron infusions to replete iron stores followed by oral iron once replete. Original Note: Dietary Consultation Note Admission Date: 06/21/2021 20:32 Assessment: 61y F admitted after syncope and GLF who underwent EGD this morning for anemia referred to nutrition for hx gastric bypass. Pt had RYGB in 1996 reports no home care instructions on diet or supplements for bariatric surgery. Pt reports having trouble with anemia prior to surgery, zelda in . Pt takes daily Centrum Silver Women which provides 1,000IU Vitamin D (33% of needs), 8mg iron (13% of needs), 50mcg B12 (10% of needs), 300mg calcium (25% of needs). These are not adequate levels of vitamins and minerals for someone s/p RYGB, pt requires daily supplementation for life of: 3,000IU Vitamin D, 45-60mg iron (prophylaxis) or 150-200mg iron (clinically anemic), 350-500 mcg B12, and 1200mg Calcium. Additionally, pt not consuming adequate protein. Usual Day: B: skips L: skips D: beans, chicken, or hamburger in meal Pts nutrition labs are pending, those which have been completed show low hgb (7), low iron stores, low vitamin D (<12), borderline low B12 (300s). Ht: 157.48 cm Wt: 69.3 kg BMI: 27.5 Last BM: 06/18/21 (06/25/21 08:19) MNA: 11 Anand Score: 20 Diet: 06/25/21 Lunch General (Regular) Diet Diet Modifications: Nutrition Percent Meal Consumed 100% 06/24/21 17:56 Percent Meal Consumed 75% 06/24/21 14:48 Percent Meal Consumed 10% 06/24/21 08:40 Percent Meal Consumed 100% 06/23/21 18:00 Labs: RBC 3.66 X10^6/uL (4.0-5.2) L 06/25/21 04:53 Hgb 6.8 g/dL (12.0-16.0) L* 06/25/21 04:53 Hct 22.0 % (36-46) L 06/25/21 04:53 Creatinine 0.57 mg/dL (0.52-1.04) 06/25/21 04:53 Hemoglobin A1c 6.4 % (4.0-6.0) H 06/22/21 05:23 Iron < 10 ug/dL (37-170) L 06/22/21 05:23 % Saturation 2 % (15-50) L 06/22/21 05:23 Ferritin 7 ng/mL (11-264) L 06/22/21 05:23 Nutrition Diagnosis: multiple micronutrient deficiency including iron deficiency anemia r/t poor absorption of nutrients and inadequate intake nutrients aeb pt s/p RYGB in 1996 with poor aftercare instructions/follow through, pt taking daily MVI which is not meeting her nutritional needs. Interventions: 1. Educated pt on post-bariatric after care including ensuring small frequent meals containing protein and daily supplementation to meet needs. 2. Provided pt handout on bariatric supplements. 3. Encouraged pt to drink protein drink like Premier protein for each missed meal. Electronically Signed by: Rose Garcia 06/25/21 10:50 Clinical Dietitian [address] [address]
[2021-06-25] MEDS: DOCUSATE 100 MG CAPSULE PO ×2 (11:23→23:06)
[2021-06-25] MEDS: METOPROLOL ER 50 MG TABLET PO (11:23)
[2021-06-25] MEDS: PREGABALIN 75 MG CAPSULE 150 MG PO (11:23)
[2021-06-25] MEDS: hydroCHLOROthiazide 25 MG TABLET PO (11:24)
[2021-06-25] MEDS: PANTOPRAZOLE 40 MG VIAL IV (11:24)
[2021-06-25] MEDS: SODIUM CHLORIDE 0.9% FLUSH 10 ML IV ×2 (11:24→21:00)
[2021-06-25] MEDS: PRAMIPEXOLE 0.25 MG TABLET 0.125 MG PO ×2 (11:25→23:02)
[2021-06-25] MEDS: DULOXETINE 30 MG CAPSULE PO ×2 (11:28→23:06)
--- NOTE | 2021-06-25 11:43 | OT.IP.TRT ---
Current Diagnoses Anemia, unspecified (06/21/21) Surgery Performed Operation Date: 06/25/21 09:00 Actual Procedures p Esophagogastroduodenoscopy with biopsies - Alex Glass MD Occupational Therapy Treatment Note M2 OT-IP Current Condition Start: 06/22/21 12:31 Freq: Status: Active Protocol: Document 06/22/21 12:31 CGR (Rec: 06/22/21 12:48 CGR [id number]) Occupational Therapy Current Condition Current Condition Evaluation Date 06/22/21 Treatment Diagnosis L upper and lower extremity weakness with muscle spasms Diagnosis Onset Date 06/21/21 M3 OT- IP Subjective and Pain Start: 06/22/21 12:31 Freq: Status: Active Protocol: Document 06/25/21 11:25 CCC (Rec: 06/25/21 11:48 CCC [id number]) OT- Subjective Occupational Therapy Visit Type Visit Start Time 11:25 Visit Stop Time 11:43 Total Visit Minutes 18 Occupational Therapy Visit Comments Patient Comments Pt HH low but agreed to do cognitive assessment and go over energy conservations needs. Patient/Caregiver Goals TO go home. OT Pain Assessment Pain When Pain Assessed At Rest Pain Present Pain Present Pain Reported M4 OT- IP ADL's Start: 06/22/21 12:31 Freq: Status: Active Protocol: Document 06/24/21 16:01 [facility] (Rec: 06/24/21 16:11 CCC [id number]) OT ADL-Toileting Comments OT Toileting Comments Pt would benefit from a BSC. OT ADL-Bathing Comments OT Bathing Comments Pt would benefit from shower chair. M5 OT- IP IADL's Start: 06/22/21 12:31 Freq: Status: Active Protocol: Document 06/22/21 12:31 CGR (Rec: 06/22/21 12:48 CGR [id number]) OT-Instrumental Activities of Daily Living Deficits IADL Deficits Identified Deficits Home Safety Awareness Awareness of Need for Assistance at Home Good Awareness Ability to Problem Solve Emergency Unable to Problem Solve Situations Medication Management Medication Management No Deficits Identified Money Management Money Management No Deficits Identified Meal Preparation Meal Preparation Caregiver Provides Assist Business Practices Supervisor Business Practices Supervisor Caregiver Provides Assist Driving Driving Comments 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 M6 OT- IP Functional Cognition Start: 06/22/21 12:31 Freq: Status: Active Protocol: Document 06/25/21 11:25 [facility] (Rec: 06/25/21 11:48 [facility] [id number]) Cognitive Factors Limiting Selfcare Function Cognitive Ability Level of Alertness Alert Patient Orientation Name,Age,Birthday,Month,Date, Year,Day of Week,Place, Situation Attention Span Ability Capable of Focused Attention, Capable of Sustained Attention Ability to Follow Commands Able to Follow Multi-Step Commands Memory Description Short Term Impaired Cognitive Comments Cognitive Assessment Comments Pt scored 26/30 on the SLUMS which implies mild cognitive deficits, pt feels that she did not sleep or eat also is making her not think as well. Pt still insistent on going home versus SNF. M7 OT- IP Mobility and Balance Start: 06/22/21 12:31 Freq: Status: Active Protocol: Document 06/23/21 12:22 [facility] (Rec: 06/23/21 12:39 [facility] [id number]) OT- Bed Mobility Assessment Supine to Sit Supine to Sit Assist Contact Guard Assistance OT-Transfer Assessment Sit to and From Stand Sit to and from Stand Minimal Assistance,2 Person Assistance Transfers Transfer Ability Minimal Assistance,2 Person Assistance Technique Transfer Destination Bed,Chair Transfer Technique Stand Step Pivot Devices Transfer Assistive Devices Gait Belt Comments Mobility Comments CGA to get to the edge of the bed with increased time. KYLE x2 with FWW to stand . Pt's left knee tends to hyperextend due to weakness. OT- Balance Assessment Sitting Balance and Reactions Static Sitting Balance Ability Good Dynamic Sitting Balance Ability Fair Standing Balance and Reactions Static Standing Balance Ability Poor M8 OT- IP Objective Assessments Start: 06/22/21 12:31 Freq: Status: Active Protocol: Document 06/22/21 12:31 CGR (Rec: 06/22/21 12:48 CGR [id number]) OT Gross Range of Motion Upper Extremity Range of Motion Assessment Within Functional Limits OT Strength Upper Extremity Strength Assessment Bilaterally Impaired Comments Strength Comments LUE grossly 3 to 3+/5, pt states it is moving better than yesterday. RUE grossly 3+ to 4-/5 OT- Coordination Assessment Upper Extremity Finger to Nose Test Left UE Impaired Finger Tapping Test Left UE Impaired OT-Muscle Tone Assessment Muscle Tone WNL Yes OT Sensation Assessment Comments Summary Comments Pt states she use to get tingling to the LUE but doesn' t currently Edema Edema Absent M9 OT- IP Assessment and Plan Start: 06/22/21 12:31 Freq: Status: Active Protocol: Document 06/25/21 11:25 [facility] (Rec: 06/25/21 11:48 [facility] [id number]) OT Summary Assessment and Plan Potential Rehabilitation Potential Good Analytic Complexity at Evaluation High Summary OT Impairments Pain,Strength,Balance, Coordination,Functional Cognition,Functional Mobility, Grooming,Dressing,Toileting, Bathing,Toilet Transfers, Shower Transfers,Activity Tolerance Progress Towards Goals Slow Progress due to Medical Issues,Slow Progress due to Activity Tolerance Assessment Summary Pt still having low HH and therefore just went over energy conservations and SLUMS with the pt. Pt scored 26/30 which implies mild cognitive deficits but pt feels her score is affected by not having breakfast or sleeping well. Goals Grooming Goal Independent Dressing Goal Independent Toileting Goal Independent Bathing Goal Independent Toilet Transfer Goal Independent Shower Transfer Goal Independent Days to Meet Goals 10 Frequency of Treatment Frequency Of Treatment Once a Day Treatment Plan OT Treatment Plan ADL Training,Functional Cognition Training,Functional Mobility,Therapeutic Exercises ,Patient/Family Education, Discharge Planning Discharge Recommendations OT Discharge Recommendations Home with 24/7 Assist Available,Home Health,SNF Rehab Other Discharge Recommendations Pending caregiver training SNF versus home with 24/7 and HH. Pt is adamantly refusing SNF Transportation Needs at Discharge Private Vehicle,Wheelchair/ Cabulance
--- NOTE | 2021-06-25 12:03 | PT-IP ANOTE ---
Saw pt at 12:03 to explain it is unsafe to treat her today due to her low H&H. Pt stated she is feeling fatigued. Offered she is fearful of receiving blood transfusion because she is afraid she may contract AIDS or COVID. Pt states she will discuss transfusion w/ her as well. RN aware.
--- NOTE | 2021-06-25 15:02 | CM.DPNOTE ---
Christiano (per Kim) said pt. insurance out of network and it would be high out of pocket expense. [facility], [facility] could not accept pt. due to not being vaccinated. They do not have availability for non-vaccinated pts. at this time. I followed up with a call to Kristyn at [facility] who said she could take a non-vaccinated patient. Depends on which [facility] insur. She said she would review. I will follow up with her in the AM. Jazz Gonzales CM Asst.
[2021-06-25] MEDS: IRON SUCROSE 300 MG in SODIUM CHLORIDE 0.9% 250 ML 176.667 ML IV (16:45)
--- NOTE | 2021-06-25 17:45 | PC.NURSE ---
Pt's BP this afternoon significantly lower than earlier in the day: 90/66, HR 71, pt asymptomatic. Pt refused blood transfusion earlier in the day and now has IV iron running. Dr Agarwal informed, no interventions at this time, will continue to monitor.
[2021-06-25] MEDS: CHOLECALCIFEROL (VITAMIN D3) 5,000 UNIT TABLET 50000 UNIT PO (18:24)
[2021-06-25] MEDS: diphenhydrAMINE 50 MG/ML VIAL 25 MG IV (22:33)
[2021-06-25] MEDS: PRAVASTATIN 20 MG TABLET PO (23:02)
[2021-06-25] MEDS: TRAZODONE 100 MG TABLET 200 MG PO (23:02)
--- NOTE | 2021-06-25 23:02 | PM.PN.1 ---
Subjective Subjective Date Patient Seen: 06/25/21 Time Patient Seen: 20:00 Interval history: Extensive conversation this evening with patient regarding her acute anemia in setting of Rosi en Y she decided to proceed with transfusion we will administer 2Us with benadryl IV prn Exam Vital Signs (past 8 hours): - 06/25/21 17:00 06/25/21 17:10 06/25/21 17:50 Temperature 98.5 F Pulse Rate 71 Respiratory Rate 16 Blood Pressure 90/66 117/59 L Pulse Oximetry 95 97 06/25/21 19:56 06/25/21 22:34 06/25/21 22:52 Temperature 98 F 98.1 F 97.9 F Pulse Rate 80 75 79 Respiratory Rate 17 19 18 Blood Pressure 134/53 L 150/64 H 145/79 H Pulse Oximetry 96 Oxygen Delivery Method Room Air Oxygen Flow Rate 0 Objective Labs Result Diagrams: 06/25/21 04:53 06/25/21 04:53 Labs: Laboratory Results - last 24 hr 06/24/21 06/24/21 06/25/21 14:10 22:40 04:53 WBC RBC Hgb Hct MCV MCH MCHC RDW Plt Count Neut % (Auto) Lymph % (Auto) [place] % (Auto) Eos % (Auto) Baso % (Auto) Neut # (Auto) Lymph # (Auto) [place] # (Auto) Eos # (Auto) Baso # (Auto) RBC Morphology Hypochromasia Anisocytosis Microcytosis Sodium Potassium Chloride Carbon Dioxide BUN Creatinine Estimated GFR BUN/Creatinine Ratio Glucose Calcium Total Bilirubin AST ALT Alkaline Phosphatase Lactate Dehydrogenase Total Protein Albumin Globulin Albumin/Globulin Ratio Vitamin B12 324 25-OH Vitamin D Total Folate 6.1 SARS-CoV-2 (PCR) Negative Blood Type B Positive Antibody Screen Negative Crossmatch See Detail 06/25/21 06/25/21 06/25/21 04:53 04:53 04:53 WBC 4.8 RBC 3.66 L Hgb 6.8 L* Hct 22.0 L MCV 60.1 L MCH 18.7 L MCHC 31.1 RDW 19.6 H Plt Count 333 Neut % (Auto) 56.5 Lymph % (Auto) 31.5 [place] % (Auto) 6.5 Eos % (Auto) 4.7 H Baso % (Auto) 0.8 Neut # (Auto) 2700 Lymph # (Auto) 1500 [place] # (Auto) 300 Eos # (Auto) 200 Baso # (Auto) 0 RBC Morphology See below Hypochromasia 3+ H Anisocytosis 1+ H Microcytosis 3+ H Sodium Potassium Chloride Carbon Dioxide BUN Creatinine Estimated GFR BUN/Creatinine Ratio Glucose Calcium Total Bilirubin AST ALT Alkaline Phosphatase Lactate Dehydrogenase 404 Total Protein Albumin Globulin Albumin/Globulin Ratio Vitamin B12 25-OH Vitamin D Total < 12.8 L Folate SARS-CoV-2 (PCR) Blood Type Antibody Screen Crossmatch 06/25/21 04:53 WBC RBC Hgb Hct MCV MCH MCHC RDW Plt Count Neut % (Auto) Lymph % (Auto) [place] % (Auto) Eos % (Auto) Baso % (Auto) Neut # (Auto) Lymph # (Auto) [place] # (Auto) Eos # (Auto) Baso # (Auto) RBC Morphology Hypochromasia Anisocytosis Microcytosis Sodium 132 L Potassium 4.2 Chloride 99 Carbon Dioxide 31 BUN 9 Creatinine 0.57 Estimated GFR > 60.0 BUN/Creatinine Ratio 15.8 Glucose 130 H Calcium 8.9 Total Bilirubin 0.2 AST 23 ALT 12 Alkaline Phosphatase 76 Lactate Dehydrogenase Total Protein 5.8 L Albumin 3.2 L Globulin 2.6 Albumin/Globulin Ratio 1.2 Vitamin B12 25-OH Vitamin D Total Folate SARS-CoV-2 (PCR) Blood Type Antibody Screen Crossmatch [facility] Medical History Cervical spondylosis with radiculopathy Diabetes Herniated nucleus pulposus, L4-5 HTN (hypertension) Low grade B-cell lymphoma Neck pain, chronic Surgical History History of heart artery stent History of lumpectomy Status post delivery Status post tubal ligation Family History Brother Age: 57 Heart disease Father Hypertension Gallstones Diabetes mellitus Mother Gallstones Crohns disease Social History marital status: household members: spouse and family Smoking Status: Current every day smoker alcohol intake: never substance use type: other Assessment & Plan Time Spent With Patient Critical Care time: I spent a total of [] minutes of critical care time on this patient's care today; this time is exclusive of procedural time.
[2021-06-26] VITALS (22 sets, daily range): BP systolic 105–169; BP diastolic 36–92; PULSE 66–77; RESP 16–18; TEMP 36.2–36.9; O2SAT 93–97
[2021-06-26] MEDS: OXYCODONE IR 5 MG TABLET PO ×4 (03:31→21:02)
--- NOTE | 2021-06-26 06:07 | PM.PN.1 ---
Subjective Subjective Date Patient Seen: 06/26/21 Time Patient Seen: 06:07 Interval history: Patient is feeling better this morning after blood. Appetite is improved, eating breakfast at time of interview. Denies nausea or vomiting. Legs continue to bother her, restless. Left sided weakness is about the same. Pain is about the same, still achy from her fall. Exam Vital Signs (past 8 hours): - 06/25/21 22:23 06/25/21 22:34 06/25/21 22:52 Temperature 98.1 F 97.9 F Pulse Rate 66 75 79 Respiratory Rate 18 19 18 Blood Pressure 150/64 H 145/79 H Pulse Oximetry 96 06/26/21 01:00 06/26/21 01:12 06/26/21 01:51 Temperature 98.1 F 98.1 F 97.2 F L Pulse Rate 71 66 71 Respiratory Rate 17 18 16 Blood Pressure 143/92 H 143/92 H 160/73 H Pulse Oximetry 97 06/26/21 01:54 06/26/21 02:13 06/26/21 03:45 Temperature 97.2 F L 97.6 F 97.9 F Pulse Rate 71 73 74 Respiratory Rate 16 17 17 Blood Pressure 160/73 H 169/73 H 168/77 H Pulse Oximetry 06/26/21 03:58 06/26/21 04:18 Temperature 97.9 F Pulse Rate 76 76 Respiratory Rate 16 16 Blood Pressure 168/77 H Pulse Oximetry 97 97 Oxygen Delivery Method Room Air Oxygen Flow Rate 0 Narrative Exam Narrative: GENERAL:? Alert and oriented; sitting up in bed. HEENT:? Head normocephalic/atraumatic.? Extraocular movements intact. LUNGS:? Clear to ausculation bilaterally, no wheezes, rhonchi or rales. CV:? Normal S1 and S2 with regular rate and rhythm, no audible murmurs, rubs or gallops. ABDOMEN:? Soft, non-tender, non-distended, no organomegaly.? Positive bowel sounds. EXTREMITIES:? No clubbing, cyanosis, or edema.? NEURO:? Cranial nerves II through XII grossly intact.? 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 Finger to nose reduced.? Fine motor reduced on left side, unable to coordinate with her right hand to put her hair in a ponytail.? Sensation intact.? Bilateral lower extremities have normal range of motion with strength 4/5 on left.? Left heel to sesay reduced.? Sensation intact.? Gait not tested. PSYCH:? Mentation improved, short term memory improved. SKIN: ? Scattered bruising, chin, left upper extremity, bilateral lower extremities, right anterior chest.? Objective Labs Result Diagrams: 06/26/21 05:10 06/26/21 05:10 Labs: Laboratory Results - last 24 hr 06/24/21 06/25/21 06/25/21 14:10 04:53 04:53 RBC Morphology Hypochromasia Anisocytosis Microcytosis Vitamin B12 324 25-OH Vitamin D Total < 12.8 L Folate 6.1 Blood Type B Positive Antibody Screen Negative Crossmatch See Detail 06/25/21 04:53 RBC Morphology See below Hypochromasia 3+ H Anisocytosis 1+ H Microcytosis 3+ H Vitamin B12 25-OH Vitamin D Total Folate Blood Type Antibody Screen Crossmatch [facility] Medical History Cervical spondylosis with radiculopathy Diabetes Herniated nucleus pulposus, L4-5 HTN (hypertension) Low grade B-cell lymphoma Neck pain, chronic Surgical History History of heart artery stent History of lumpectomy Status post delivery Status post tubal ligation Family History Brother Age: 57 Heart disease Father Hypertension Gallstones Diabetes mellitus Mother Gallstones Crohns disease Social History marital status: household members: spouse and family Smoking Status: Current every day smoker alcohol intake: never substance use type: other Assessment & Plan Assessment & Plan narrative: 61-year-old female admitted to hospital for possible CVA due to left upper extremity and left lower extremity weakness, HD#5. 1.? Left lower extremity and left upper extremity weakness with possibility of distant CVA, unchanged, residual weakness? -Echo/CT reassuring.? -MRI declined Plan:? High clinical suspicion for CVA/TIA.? Will minimize risks by controlling blood pressure and cholesterol with usual home medications.? Will continue telemetry/PT/OT. ?Holding blood thinner due to fall risk.? Plan for SNF or home with PT/OT and outpatient neurology referral. 2.? Iron deficiency anemia, improved status blood and iron, suspect secondary to nutrition due to gastric bypass surgery but cannot rule out bleed or primary/secondary malignancy. ?-History of hypermetabolic PET scan in the right colon from cecum to hepatic flexure in 2018, subsequent colonoscopy was negative. -History of NSAID use with celecoxib 200 mg PO BID.? Just had old 5 year-old prescription of ibuprofen 800 mg every 6-8 hours as needed refilled on 05/18/21. -History of distant upper GI bleed, EGD on 06/25/21 reassuring, appreciate consult from general surgery -Discussed case with Dr. Ham, oncology on 06/24/21.? He recommended PET or CT then colonoscopy again to evaluate right colon lesion.? CT abd/pelvis on 06/24/21 showed no mass. Plan:? H/H much improved status post blood and iron yesterday. Will repeat second IV iron 300 mg infusion today and plan for transition to SNF/home if labs stable. Will work on getting colonoscopy as an outpatient and maintain close oncology follow-up. Continue protonix 40 mg IV to BID dosing.? Guaiac still pending.? Holding NSAIDs.? Please see #1 regarding discharge planning which could happen tomorrow if H/H and vitals stable. Will need outpatient IV iron to complete her course and SNF rehab or home health with PT/OT. 3.? 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 Vitamin D 50,000 IU given 06/25/21, plan for weekly doses of 50,000 IU for 5 more weeks then transition to 2000 IU PO qd.? Awaiting full lab workup for remaining vitamin levels, can be repleted as outpatient once results are in. 4. Hyponatremia, chronic, baseline 130, stable Plan:? Will continue to trend labs, HCTZ has been discontinued. 5.? Type 2 diabetes, chronic, diet controlled. Plan:? Diabetic diet. 6.? Hypertension, chronic, labile in the hospital, now hypertensive after PRBC x2 Plan:? Continue metoprolol.? Received lasix between units of PRBCs, will give additional 20 mg IV now. Do not plan to restart HCTZ due to chronic hyponatremia, may need metoprolol titrated prior to discharge. 7.? COPD, mild Plan: Continue ProAir and RT consult. 8. Depression/anxiety Plan: Continue on duloxetine and trazodone.? Pastoral care consult. 9. Coronary artery disease without acute symptoms Plan: Continue on pravastatin and metoprolol. 10. Frequent falls related to weakness with pain diffusely Plan:? Suspect related to critical anemia, repleting with iron and blood, please see #1-2.? Will continue to treat symptoms with oxycodone, cyclobenzaprine, Lyrica, and duloxetine. 11. Left foot pain/muscle spasm of unclear etiology, suspect iron deficiency anemia. Plan:? IV iron.? Continue home pregabalin and pramipexole.? 12. Hodgkin's lymphoma without acute issues except for possible contribution to anemia Plan: Dr. Ham, oncology consutling.? Stable. 13.? Restless legs syndrome Plan: IV iron/PRBCs.? Continue home lyrica and pramipexole. 14. History of gastric ulcer, distant -EGD reassuring Plan:? Pantoprazole 40 mg IV BID.? Code:? Full FEN:? carb consistent, PO fluids DVT:? SCDs GI:? protonix Dispo:? Anticipate another 1, possibly 2 more nights.
[2021-06-26 06:26] LABS: Alanine Aminotransferase 12 IU/L (<35); Albumin 3.3 g/dL (3.5-5.0); Albumin Globulin Ratio 1.2 (1.0-2.8); Alkaline Phosphatase 71 U/L (38-126); Aspartate Aminotransferase 51 IU/L (14-36); BUN Creatinine Ratio 19.2 (6-22); Bilirubin Total 0.8 mg/dL (0.2-1.3); Blood Urea Nitrogen 10 mg/dL (7-17); Carbon Dioxide 34 mmol/L (22-32); Chloride 97 mmol/L (98-107); Estimated Glomerular Filt Rate > 60.0 mL/min (>60); Globulin 2.8 g/dL (1.7-4.1); Glucose 124 mg/dL (80-110); HEMOLYSIS < 15 (0-50); Potassium 4.2 mmol/L (3.4-5.1); Sodium 131 mmol/L (137-145); Total Protein 6.1 g/dL (6.3-8.2)
[2021-06-26 06:28] LABS: Basophils Absolute Auto 0 /uL (0-100); Basophils Percent Auto 0.6 % (0-2); Eosinophils Absolute Auto 300 /uL (0-450); Eosinophils Percent Auto 4.6 % (2-4); Hemoglobin 9.7 g/dL (12.0-16.0); Lymphocytes Absolute Auto 1000 /uL (1100-4500); Lymphocytes Percent Auto 14.4 % (25-40); Mean Corpuscular HGB Conc 32.4 % (30-36); Mean Corpuscular Hemoglobin 21.4 PG (26-34); Monocytes Absolute Auto 400 /uL (0-900); Monocytes Percent Auto 6.6 % (3-14); Neutrophils Absolute Auto 5000 /uL (1500-7000); Neutrophils Percent Auto 73.8 % (50-75); Platelet Count 278 X10^3/uL (150-400); Red Blood Cell Count 4.56 X10^6/uL (4.0-5.2); Red Cell Distribution Width 26.3 % (11.6-14.8); White Blood Cell Count 6.8 X10^3/uL (4.5-11.0)
[2021-06-26 06:36] LABS: Add Manual Diff / Slide Review SLIDE REVIEW; Hematocrit 30.1 % (36-46)
[2021-06-26 08:24] LABS: Anisocytosis 3+; Microcytosis 3+
[2021-06-26 08:25] LABS: Hypochromasia 2+
[2021-06-26] MEDS: SODIUM CHLORIDE 0.9% FLUSH 10 ML IV ×2 (08:30→20:58)
[2021-06-26] MEDS: FUROSEMIDE 20 MG/2 ML VIAL IV (08:31)
[2021-06-26] MEDS: DULOXETINE 30 MG CAPSULE PO ×2 (08:37→20:58)
[2021-06-26] MEDS: hydroCHLOROthiazide 25 MG TABLET PO (08:37)
[2021-06-26] MEDS: DOCUSATE 100 MG CAPSULE PO ×2 (08:37→20:58)
[2021-06-26] MEDS: METOPROLOL ER 50 MG TABLET PO (08:38)
[2021-06-26] MEDS: PANTOPRAZOLE 40 MG VIAL IV ×2 (08:38→20:57)
[2021-06-26] MEDS: PREGABALIN 75 MG CAPSULE 150 MG PO (08:38)
[2021-06-26] MEDS: PRAMIPEXOLE 0.25 MG TABLET 0.125 MG PO ×2 (08:44→20:57)
[2021-06-26] MEDS: ACETAMINOPHEN 325 MG TABLET 650 MG PO (10:32)
--- NOTE | 2021-06-26 10:55 | OT.IP.TRT ---
Current Diagnoses Anemia, unspecified (06/21/21) Surgery Performed Operation Date: 06/25/21 09:00 Actual Procedures p Esophagogastroduodenoscopy with biopsies - Alex Glass MD Occupational Therapy Treatment Note M2 OT-IP Current Condition Start: 06/22/21 12:31 Freq: Status: Active Protocol: Document 06/22/21 12:31 CGR (Rec: 06/22/21 12:48 CGR [id number]) Occupational Therapy Current Condition Current Condition Evaluation Date 06/22/21 Treatment Diagnosis L upper and lower extremity weakness with muscle spasms Diagnosis Onset Date 06/21/21 M3 OT- IP Subjective and Pain Start: 06/22/21 12:31 Freq: Status: Active Protocol: Document 06/26/21 11:32 CCC (Rec: 06/26/21 12:13 CCC [id number]) OT- Subjective Occupational Therapy Visit Type Type Treatment Note Visit Start Time 09:45 Visit Stop Time 10:55 Total Visit Minutes 70 Occupational Therapy Visit Comments Patient Comments Pt requesting to use the BSC. Patient/Caregiver Goals To go home. OT Pain Assessment Pain When Pain Assessed At Rest Pain Present Pain Present Pain Reported Location Generalized Intensity 9 Scale Used Numeric (0 - 10) M4 OT- IP ADL's Start: 06/22/21 12:31 Freq: Status: Active Protocol: Document 06/26/21 11:32 CCC (Rec: 06/26/21 12:13 CCC [id number]) OT ADL-Grooming Comments OT Grooming Comments NOt performed. OT ADL-Oral Care Comments Oral Care Comments Pt refusing as states does not have teeth. OT ADL-Dressing General Eval Lower Body Dressing Ability Maximum Assistance Comments OT Dressing Comments Assist to help lo brief over her feet and up over her hips due to decreased balance. OT ADL-Toileting General Evaluation Toileting Ability Maximum Assistance Areas Needing Assistance Manage Clothing Comments OT Toileting Comments MOD/MAX X to help stand with FWW and assist for clothing needs. OT ADL-Bathing Comments OT Bathing Comments Sponge bath more appropriate at this time. Pt states her walk in shower is too small to put a stool in. At home she justs gets into the shower when she can. There are no grab bars in the shower to assist. Pt not open or feels that equipment will be able to fit into her shower. M5 OT- IP IADL's Start: 06/22/21 12:31 Freq: Status: Active Protocol: Document 06/22/21 12:31 CGR (Rec: 06/22/21 12:48 CGR [id number]) OT-Instrumental Activities of Daily Living Deficits IADL Deficits Identified Deficits Home Safety Awareness Awareness of Need for Assistance at Home Good Awareness Ability to Problem Solve Emergency Unable to Problem Solve Situations Medication Management Medication Management No Deficits Identified Money Management Money Management No Deficits Identified Meal Preparation Meal Preparation Caregiver Provides Assist Twisting Frame Changer Twisting Frame Changer Caregiver Provides Assist Driving Driving Comments 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 M6 OT- IP Functional Cognition Start: 06/22/21 12:31 Freq: Status: Active Protocol: Document 06/26/21 11:32 [facility] (Rec: 06/26/21 12:13 [facility] [id number]) Cognitive Factors Limiting Selfcare Function Cognitive Ability Level of Alertness Alert Patient Orientation Name,Age,Birthday,Month,Date, Year,Day of Week,Place, Situation Attention Span Ability Capable of Focused Attention, Capable of Sustained Attention Ability to Follow Commands Able to Follow One Step Commands Memory Description Short Term Impaired Cognitive Comments Cognitive Assessment Comments Pt having decreased insight to her needs and initially insistent that she will not use a FWW and feels that her just having his arms underneath her from behind will be the only way to get around if needed- as they have done in the past. Pt admits at home has to even call her daughter to assist her to help get her off the floor . Able to use the FWW several times with the pt and pt starting to realize after education that the FWW may be a good option to use. Pt not wanting therapist to call her for caregiver training , but states will let him know for tomorrow at 1030AM M7 OT- IP Mobility and Balance Start: 06/22/21 12:31 Freq: Status: Active Protocol: Document 06/26/21 11:32 [facility] (Rec: 06/26/21 12:13 [facility] [id number]) OT- Bed Mobility Assessment Supine to Sit Supine to Sit Assist Standby Assistance,Head of Bed Elevated,Bedrails Sit to Supine Sit to Supine Assist Minimal Assistance Scooting Scooting to Edge of Bed Standby Assistance OT-Transfer Assessment Sit to and From Stand Sit to and from Stand Moderate Assistance Transfers Transfer Ability Maximum Assistance Technique Transfer Destination Bed,Bedside Commode Transfer Technique Stand Step Pivot Devices Transfer Assistive Devices Gait Belt,Front Wheeled Walker Comments Mobility Comments MODA to stand and pt tend to need to use to FWW to asisst to stand and therapist having to hold the FWW in place. Pt MAX Ax1 to transfer as her legs are very unsteady and needing assist to guide the FWW and assist to help hold onto the pt for balance. Pt having poor control of her BLE. OT- Gait Assessment Comments Gait Ability Comments Transfers at this time. OT- Balance Assessment Sitting Balance and Reactions Static Sitting Balance Ability Fair Dynamic Sitting Balance Ability Poor Standing Balance and Reactions Static Standing Balance Ability Poor M9 OT- IP Assessment and Plan Start: 06/22/21 12:31 Freq: Status: Active Protocol: Document 06/26/21 11:32 [facility] (Rec: 06/26/21 12:13 [facility] [id number]) OT Summary Assessment and Plan Potential Rehabilitation Potential Good Analytic Complexity at Evaluation High Summary OT Impairments Pain,Strength,Balance, Coordination,Functional Cognition,Functional Mobility, Grooming,Dressing,Toileting, Bathing,Toilet Transfers, Shower Transfers,Activity Tolerance Progress Towards Goals Progressing Toward Goals Assessment Summary Pt HH much better today. Able to go over gentle shoulder AROM for pt and theraputty exercises to help increased strength for her hands. Pt able to do several transfers today to [place] [facility] [place]. Pt still very unsteady on her feet but insistent that she wants to go home and will mainly just stay in her bed and open to having home health . Pt would benefit from skilled rehab. To do caregiver training with pt;s at 1030AM. Pt not wanting for therapist to call her but rather that she will tell him when he comes in later. Goals Grooming Goal Independent Dressing Goal Independent Toileting Goal Independent Bathing Goal Independent Toilet Transfer Goal Independent Shower Transfer Goal Independent Days to Meet Goals 20 Frequency of Treatment Frequency Of Treatment Once a Day Treatment Plan OT Treatment Plan ADL Training,Functional Cognition Training,Functional Mobility,Therapeutic Exercises ,Patient/Family Education, Discharge Planning Discharge Recommendations OT Discharge Recommendations Home with 24/7 Assist Available,Home Health,SNF Rehab Other Discharge Recommendations Pending caregiver training SNF versus home with 24/7 and HH. Pt is adamantly refusing SNF Transportation Needs at Discharge Private Vehicle,Wheelchair/ Cabulance
--- NOTE | 2021-06-26 11:45 | PT.IPTN ---
Current Diagnoses Anemia, unspecified (06/21/21) Surgery Performed Operation Date: 06/25/21 09:00 Actual Procedures p Esophagogastroduodenoscopy with biopsies - Alex Glass MD Physical Therapy Treatment Note M2 PT-IP Current Condition Start: 06/22/21 09:11 Freq: NEEDED Status: Active Protocol: Document 06/24/21 09:22 SP (Rec: 06/24/21 15:29 SP [id number]) Physical Therapy Current Condition Current Condition Evaluation Date 06/22/21 Treatment Diagnosis weakness, falls, impaired mobility and gait Onset Date 06/08/21 M3 PT-IP Subjective Start: 06/22/21 09:11 Freq: NEEDED Status: Active Protocol: Document 06/26/21 11:17 KS (Rec: 06/26/21 12:48 KS [id number]) Subjective Physical Therapy Visit Type Type Treatment Note Visit Start Time 11:17 Visit Stop Time 11:45 Total Visit Minutes 28 Number of COMMUNICATIONS SYSTEMS ENGINEER Visits 3 Physical Therapy Visit Comments Patient Comments Pt agreeable to work w/ therapy. M4 PT-IP Mobility and Gait Start: 06/22/21 09:11 Freq: NEEDED Status: Active Protocol: Document 06/26/21 11:17 KS (Rec: 06/26/21 12:48 KS [id number]) PT-Bed Mobility Assessment Supine to Sit Supine to Sit Contact Guard Assistance Sit to Supine Sit to Supine Contact Guard Assistance, Bedrails Scooting Scooting to Edge of Bed Contact Guard Assistance PT-Transfer Assessment Comments Mobility Comments Pt in bed upon arrival from therapy and not agreeable to ambulate due to feeling woozy after pain meds and fatigued from working and ambulating w / OT. Pt CGA for sup<>sit and scooting EOB however required increased time and cues to complete. Pt demonstrated poor trunk control needing Min A to remain upright, CGA when using bed rails. Pt performed 2x10 bilateral ankle pumps, glute sets and seated knee extension and resisted knee flexion. CGA and cues for sit< >sup, pt then completed 1x10 bridges in bed and reported fatigue. Pt seems to have difficulty w/ motor control throughout treatment. Gait Assessment Comments Gait Comments Pt refused gait due to wooziness and fatigue. PT-Balance Assessment Sitting Balance and Reactions Static Sitting Balance Ability Poor Dynamic Sitting Balance Ability Poor M5 PT-IP Objective Assessments Start: 06/22/21 09:11 Freq: NEEDED Status: Active Protocol: Document 06/22/21 10:26 AW (Rec: 06/22/21 12:00 AW [id number]) Orientation Orientation/Cognition Level of Alertness Alert Orientation Name,Day of Week,Place, Situation Language Function Ability No Deficits Noted Safety Awareness Decreased Safety Awareness Gross Range of Motion Upper Extremity ROM Assessment Left Impaired Impairments History of L rotator cuff dysfunction Lower Extremity ROM Assessment Within Functional Limits Strength Upper Extremity Strength Assessment Bilaterally Impaired Lower Extremity Strength Assessment Bilaterally Impaired Hip R 4-/5; L 3+/5 Knee R 4/5; L 3+/5 Ankle R 4/5; L 3/5 Comments Strength Comments Formal MMT is complicated by pain presentation but pt is globally weak and LLE ~1/2 grade weaker in all muscle groups. Coordination Assessment Gross Coordination Gross Coordination Impaired Assessment Finger to Nose Test Minimal Impairment Sensation Assessment Sensation Gross Sensation WNL Muscle Tone Muscle Tone WNL Yes Other Assessments Other Other Assessments Lumbar ROM not assessed. Pt is observed to move her neck with minimal hesitation in flexion/extension and rotation . Lateral flexion is not observed. Pt has scattered bruises in varying phases of healing consistent with frequent falls. M6 PT-IP Treatment Start: 06/22/21 09:11 Freq: NEEDED Status: Active Protocol: Document 06/26/21 11:17 KS (Rec: 06/26/21 12:48 KS [id number]) Physical Therapy Treatment Exercises Exercises Ankle Pumps,Gluteal Sets Other Treatments Other Treatment Performed Bridges, seated knee extension , seated resisted knee flexion . Pt required max cues for all exercises. M7 PT-IP Assessment and Plan Start: 06/22/21 09:11 Freq: NEEDED Status: Active Protocol: Document 06/26/21 11:17 KS (Rec: 06/26/21 12:48 KS [id number]) PT Summary Assessment and Plan Potential Rehabilitation Potential Good Status of Condition at Evaluation Evolving Summary Impairments Pain,ROM,Strength,Balance, Coordination,Bed Mobility, Transfers,Gait Progress Towards Goals Slow Progress due to Medical Issues,Slow Progress due to Activity Tolerance Assessment Summary Pt refused getting out of bed today, but was able to perform LE exercises seated at EOB and bridges in bed to promote blood flow and strengthening. Pt requires increased time and frequent cues and redirection to perform tasks. At this time, pt will require 24/7 care due to high fall risk but she does not currently have that at home and will need SNF to improve functional mobility independence. Goals Bed Mobility Goal Independent Transfer Goal Standby Assistance,Front Wheeled Walker Gait Goal Standby Assistance,Front Wheel Walker Gait Distance 200 Other Goals - up/down 2 steps no rail SBA Days to Meet Goals 10 Frequency of Treatment Frequency Of Treatment Once a Day Treatment Plan Physical Therapy Treatment Plan Bed Mobility Training,Transfer Training,Gait Training, Therapeutic Exercise,Balance Retraining,Discharge Planning, Hot or Cold Pack,Neuromuscular Re-ed,Coordination Retraining ,Manual Therapy Other Recommendations and Next Treatment Bed mob, transfers, gait if Focus able. WIll need to assess stairs if able. Precautions Other Precautions falls Recommendations To Nursing Amount of Assist Needed 2 Person Assist Discharge Recommendations PT Discharge Recommendations SNF Rehab Transportation Needs at Discharge Wheelchair/Cabulance
--- NOTE | 2021-06-26 15:36 | CM.DPNOTE ---
DCP Note Kristyn at [facility] SNF will begin authorization request on patient's behalf. Patient's [employer] insurance will cover 90% of SNF cost if her deductable is met and SNF is authorized. Kristyn unable to confirm coverage through patient's (secondary insurer). Patient has been clinically accepted at [facility]; timeline to secure this auth is unknown Continue to follow closely for coordination of DCP JW
[2021-06-26] MEDS: CYCLOBENZAPRINE 10 MG TABLET PO (16:54)
--- NOTE | 2021-06-26 18:05 | PC.NURSE ---
Pt A&Ox3, this a.m. BP slightly elevated this a.m and controlled well with scheduled antihypertensive mediccations. Pt is able to work with OT and uses BSC and later she is assisted to the BR. Her gait is unsteady requiring x1 CGA. She c/o of leg cramps and legs feeling like they will buckle. at bedside this evening reports he will be here tomorrow for caregiver training at 1000 a.m. Pt's IV infiltrated this evening and after multiple attempts RN unable to re establish IV. MD Ballesteros notifed of difficult IV access and ok to leave IV out for the time being. Notified MD of severe leg cramps and patient drinking copious amounts of water. Medicated with PRN oxycodone and flexeril with good effect. explained that with severe anemia symptoms are cramping and restless leg. Pt has had these chronically. Continuous monitoring.
[2021-06-26] MEDS: ATORVASTATIN 20 MG TABLET 40 MG PO (20:57)
[2021-06-26] MEDS: TRAZODONE 100 MG TABLET 200 MG PO (20:57)
[2021-06-26 21:22] LABS: Calcium 8.9 mg/dL (8.7-10.3); Parathyroid Hormone, Intact 28 pg/mL (15-65); Zinc 53 ug/dL (44-115)
[2021-06-27] VITALS (11 sets, daily range): BP systolic 112–134; BP diastolic 50–58; PULSE 67–98; RESP 17–19; TEMP 36.2–36.7; O2SAT 93–100
[2021-06-27] MEDS: OXYCODONE IR 5 MG TABLET PO ×5 (01:58→22:51)
[2021-06-27 04:50] LABS: Blood Urea Nitrogen 10 mg/dL (7-17); Calcium 9.3 mg/dL (8.4-10.2); Carbon Dioxide 32 mmol/L (22-32); Chloride 96 mmol/L (98-107); Estimated Glomerular Filt Rate > 60.0 mL/min (>60); Glucose 120 mg/dL (80-110); HEMOLYSIS < 15 (0-50); Potassium 3.6 mmol/L (3.4-5.1); Sodium 129 mmol/L (137-145)
[2021-06-27 05:06] LABS: Basophils Absolute Auto 100 /uL (0-100); Basophils Percent Auto 0.9 % (0-2); Eosinophils Absolute Auto 300 /uL (0-450); Eosinophils Percent Auto 4.8 % (2-4); Hematocrit 32.6 % (36-46); Hemoglobin 10.4 g/dL (12.0-16.0); Lymphocytes Absolute Auto 1400 /uL (1100-4500); Lymphocytes Percent Auto 18.9 % (25-40); Mean Corpuscular HGB Conc 31.8 % (30-36); Mean Corpuscular Hemoglobin 20.9 PG (26-34); Mean Corpuscular Volume 65.7 fL (80-100); Monocytes Absolute Auto 400 /uL (0-900); Neutrophils Absolute Auto 5000 /uL (1500-7000); Neutrophils Percent Auto 69.4 % (50-75); Platelet Count 280 X10^3/uL (150-400); Red Blood Cell Count 4.96 X10^6/uL (4.0-5.2); Red Cell Distribution Width 26.7 % (11.6-14.8); White Blood Cell Count 7.2 X10^3/uL (4.5-11.0)
[2021-06-27 05:36] LABS: Add Manual Diff / Slide Review SLIDE REVIEW
[2021-06-27 07:18] LABS: Anisocytosis 2+; Hypochromasia 1+; Microcytosis 2+; Poikilocytosis 1+
[2021-06-27] MEDS: DOCUSATE 100 MG CAPSULE PO ×2 (08:28→20:36)
[2021-06-27] MEDS: PRAMIPEXOLE 0.25 MG TABLET 0.125 MG PO ×2 (08:28→20:36)
[2021-06-27] MEDS: DULOXETINE 30 MG CAPSULE PO ×2 (08:29→20:36)
[2021-06-27] MEDS: PREGABALIN 75 MG CAPSULE 150 MG PO (08:29)
[2021-06-27] MEDS: METOPROLOL ER 50 MG TABLET PO (08:30)
--- NOTE | 2021-06-27 11:08 | PT.IPTN ---
Current Diagnoses Anemia, unspecified (06/21/21) Surgery Performed Operation Date: 06/25/21 09:00 Actual Procedures p Esophagogastroduodenoscopy with biopsies - Alex Glass MD Physical Therapy Treatment Note M2 PT-IP Current Condition Start: 06/22/21 09:11 Freq: NEEDED Status: Active Protocol: Document 06/24/21 09:22 SP (Rec: 06/24/21 15:29 SP [id number]) Physical Therapy Current Condition Current Condition Evaluation Date 06/22/21 Treatment Diagnosis weakness, falls, impaired mobility and gait Onset Date 06/08/21 M3 PT-IP Subjective Start: 06/22/21 09:11 Freq: NEEDED Status: Active Protocol: Document 06/27/21 10:31 KS (Rec: 06/27/21 11:43 KS [id number]) Subjective Physical Therapy Visit Type Type Treatment Note Visit Start Time 10:32 Visit Stop Time 11:08 Total Visit Minutes 36 Notes present for caregiver training. Number of LICENSED PSYCHIATRIC TECHNICIAN Visits 4 Physical Therapy Visit Comments Patient Comments Pt agreeable to work w/ therapy. M4 PT-IP Mobility and Gait Start: 06/22/21 09:11 Freq: NEEDED Status: Active Protocol: Document 06/27/21 10:31 KS (Rec: 06/27/21 11:43 KS [id number]) PT-Bed Mobility Assessment Supine to Sit Supine to Sit Minimal Assistance Scooting Scooting to Edge of Bed Moderate Assistance PT-Transfer Assessment Sit to and From Stand Sit to and from Stand Minimal Assistance,1 Person Assistance,Use of Upper Extremities Equipment Transfer Assistive Device Gait Belt,Front Wheeled Walker Orthotic/Prosthetic Devices or Brace: No Transfers Transfer Destination Chair Transfer Technique Pt ambulated w/ FWW Transfer Ability Level of Assist Minimal Assistance,Moderate Assistance,1 Person Assistance ,Use of Upper Extremities Comments Mobility Comments Pt in bed upon arrival from therapy w/ in room. provided all assist during treatment. Min A for sup<>sit and Mod A for scooting EOB. Pts required assist w/ applying gaitbelt safely. Min A for sit <>stand and then pt ambulated ~6 ft to chair w/ FWW and providing appropriate assist and cues. Pt reported fatigue following ambulation and stated she feels woozy again from medication and does not feel safe to practice stairs today however pt has 2 steps to get into home. Pt left in chair w/ all needs in reach. Gait Assessment Gait Gait Assistance Required: Minimum Assistance,1 Person Assist Distance (Feet) 6 Able to Maintain Weight Bearing Status Yes During Gait Assistive Devices Assistive Device Gait Belt,Front Wheeled Walker Gait Deviations General Gait Pattern Antalgic,Decreased Stride Length,Decreased Feet Clearance,Flexed Trunk Factors Limiting Gait Function Factors Limiting Gait Function Abnormal Tonal Influences, Decreased Activity Tolerance, Decreased Sensation,Decreased Strength,Incoordination,Pain, Poor Balance,Poor Safety Awareness Comments Gait Comments Pt only ambulated ~6 ft w/ FWW Min A by pts . No knee buckling this visit, but pt states is common. Stair Climbing Assessment Comments Stair Climbing Comments Did not assess due to pt reporting wooziness following medication. Pt will need to complete 2 steps prior to d/c. PT-Balance Assessment Sitting Balance and Reactions Static Sitting Balance Ability Poor Dynamic Sitting Balance Ability Poor Standing Balance and Reactions Static Standing Balance Ability Poor Dynamic Standing Balance Ability Poor Device Used FWW M5 PT-IP Objective Assessments Start: 06/22/21 09:11 Freq: NEEDED Status: Active Protocol: Document 06/22/21 10:26 AW (Rec: 06/22/21 12:00 AW [id number]) Orientation Orientation/Cognition Level of Alertness Alert Orientation Name,Day of Week,Place, Situation Language Function Ability No Deficits Noted Safety Awareness Decreased Safety Awareness Gross Range of Motion Upper Extremity ROM Assessment Left Impaired Impairments History of L rotator cuff dysfunction Lower Extremity ROM Assessment Within Functional Limits Strength Upper Extremity Strength Assessment Bilaterally Impaired Lower Extremity Strength Assessment Bilaterally Impaired Hip R 4-/5; L 3+/5 Knee R 4/5; L 3+/5 Ankle R 4/5; L 3/5 Comments Strength Comments Formal MMT is complicated by pain presentation but pt is globally weak and LLE ~1/2 grade weaker in all muscle groups. Coordination Assessment Gross Coordination Gross Coordination Impaired Assessment Finger to Nose Test Minimal Impairment Sensation Assessment Sensation Gross Sensation WNL Muscle Tone Muscle Tone WNL Yes Other Assessments Other Other Assessments Lumbar ROM not assessed. Pt is observed to move her neck with minimal hesitation in flexion/extension and rotation . Lateral flexion is not observed. Pt has scattered bruises in varying phases of healing consistent with frequent falls. M6 PT-IP Treatment Start: 06/22/21 09:11 Freq: NEEDED Status: Active Protocol: Document 06/27/21 10:31 KS (Rec: 06/27/21 11:43 LA [id number]) Physical Therapy Treatment Education Education Provided Safety Other Treatments Other Treatment Performed Caregiver/stair training set for 10:30 tomorrow. Initiated caregiver training w / pts who was able to assist pt out of bed and ambulating to chair w/ FWW. M7 PT-IP Assessment and Plan Start: 06/22/21 09:11 Freq: NEEDED Status: Active Protocol: Document 06/27/21 10:31 KS (Rec: 06/27/21 11:43 LA [id number]) PT Summary Assessment and Plan Potential Rehabilitation Potential Good Status of Condition at Evaluation Evolving Summary Impairments Pain,ROM,Strength,Balance, Coordination,Bed Mobility, Transfers,Gait Progress Towards Goals Slow Progress due to Medical Issues,Slow Progress due to Activity Tolerance Assessment Summary Initiated caregiver training w / pts who was able to provide assist and cues for bed mobility and ambulation w/ FWW. Pt still limited in mobility due to weakness and is a high fall risk, but plans on going home and therefore will need to complete stair training w/ and will need FWW for home use. Goals Bed Mobility Goal Independent Transfer Goal Standby Assistance,Front Wheeled Walker Gait Goal Standby Assistance,Front Wheel Walker Gait Distance 200 Other Goals - up/down 2 steps no rail SBA Days to Meet Goals 10 Frequency of Treatment Frequency Of Treatment Once a Day Treatment Plan Physical Therapy Treatment Plan Bed Mobility Training,Transfer Training,Gait Training, Therapeutic Exercise,Balance Retraining,Discharge Planning, Hot or Cold Pack,Neuromuscular Re-ed,Coordination Retraining ,Manual Therapy Other Recommendations and Next Treatment 2 steps, increase ambulation. Focus Precautions Other Precautions falls Recommendations To Nursing Amount of Assist Needed 2 Person Assist Discharge Recommendations PT Discharge Recommendations SNF Rehab Equipment Needed for Home Before FWW Discharge Transportation Needs at Discharge Wheelchair/Cabulance
--- NOTE | 2021-06-27 11:11 | PM.DS.1 ---
History of Present Illness History of Present Illness Chief complaint: Syncope, glf Discharge Providers Provider Date of admission: 06/21/21 20:32 Primary care physician: Tanvi Crockett MD Consults: 06/21/21 22:59 Consult to Discharge Planning Routine Comment: Consult to Physical Therapy Evaluate & Treat Comment: Physician Instructions: Evaluate and Treat 06/22/21 09:25 Consult to Occupational Therapy Evaluate & Treat Comment: Physician Instructions: Evaluate and treat 06/24/21 13:14 Consult to General Surgery Routine Comment: Consulting Provider: Alcides Holliday Reason for consultation: anemia, severe Has provider been notified: Yes 06/24/21 19:15 Consult to Occupational Therapy Evaluate & Treat Comment: Physician Instructions: Evaluate and treat 06/24/21 19:20 Consult to Dietitian, Adult Routine Comment: Reason For Exam: h/o gastric bypass, iron deficiency anemia 06/26/21 06:58 Consult to Pastoral Services Routine Comment: depression/anxiety Discharge provider: Eleanor Pena MD Exam Vital Signs (past 8 hours): - 06/27/21 04:50 06/27/21 05:00 06/27/21 08:00 Temperature 97.5 F L 97.1 F L Pulse Rate 75 98 H Respiratory Rate 17 18 Blood Pressure 134/52 L 113/50 L Pulse Oximetry 100 96 97 06/27/21 08:30 06/27/21 09:50 Temperature Pulse Rate 70 70 Respiratory Rate Blood Pressure 113/50 L Pulse Oximetry Oxygen Delivery Method Room Air Oxygen Flow Rate 0 Objective Labs Result Diagrams: 06/27/21 04:24 06/27/21 04:24 Labs: Laboratory Results - last 24 hr 06/24/21 06/25/21 06/25/21 14:10 04:53 04:53 WBC RBC Hgb Hct MCV MCH MCHC RDW Plt Count Neut % (Auto) Lymph % (Auto) [place] % (Auto) Eos % (Auto) Baso % (Auto) Neut # (Auto) Lymph # (Auto) [place] # (Auto) Eos # (Auto) Baso # (Auto) RBC Morphology Hypochromasia Poikilocytosis Anisocytosis Microcytosis Sodium Potassium Chloride Carbon Dioxide BUN Creatinine Estimated GFR BUN/Creatinine Ratio Glucose Calcium PTH Intact Calcium (PTH Intact) PTH Intact Intraop Copper 172 H Zinc 53 Crossmatch See Detail 0106/27/21 06/27/21 04:53 04:24 04:24 WBC 7.2 RBC 4.96 Hgb 10.4 L Hct 32.6 L MCV 65.7 L MCH 20.9 L MCHC 31.8 RDW 26.7 H Plt Count 280 Neut % (Auto) 69.4 Lymph % (Auto) 18.9 L [place] % (Auto) 6.0 Eos % (Auto) 4.8 H Baso % (Auto) 0.9 Neut # (Auto) 5000 Lymph # (Auto) 1400 [place] # (Auto) 400 Eos # (Auto) 300 Baso # (Auto) 100 RBC Morphology Not Reportable Hypochromasia 1+ H Poikilocytosis 1+ H Anisocytosis 2+ H Microcytosis 2+ H Sodium 129 L Potassium 3.6 Chloride 96 L Carbon Dioxide 32 BUN 10 Creatinine 0.50 L Estimated GFR > 60.0 BUN/Creatinine Ratio 20.0 Glucose 120 H Calcium 9.3 PTH Intact 28 Calcium (PTH Intact) 8.9 PTH Intact Intraop Comment Copper Zinc Crossmatch [facility] Medical History Cervical spondylosis with radiculopathy Diabetes Herniated nucleus pulposus, L4-5 HTN (hypertension) Low grade B-cell lymphoma Neck pain, chronic Surgical History History of heart artery stent History of lumpectomy Status post delivery Status post tubal ligation Family History Brother Age: 57 Heart disease Father Hypertension Gallstones Diabetes mellitus Mother Gallstones Crohns disease Social History marital status: household members: spouse and family Smoking Status: Current every day smoker alcohol intake: never substance use type: other Discharge Plan Discharge orders & Medications Prescriptions: No Action Metoprolol Succinate (Toprol Xl) 100 mg PO QAM Qty: 0 0RF ASPIRIN (Aspirin Ec) 81 mg PO Q DAY Qty: 0 0RF HYDROCHLOROTHIAZIDE (Hydrodiuril / Hctz) 25 mg PO DAILY Qty: 0 0RF fluticasone propion-salmeterol [Advair Diskus] 250 MCG/50 MCG blister with device 1 puff INH BID Qty: 60 3RF promethazine 25 MG tablet 25 mg PO Q6HP PRNQty: 120 0RF duloxetine [Cymbalta] 30 MG capsule,delayed release(DR/EC) 30 mg PO SEE INSTRUCTIONS Qty: 90 0RF cyclobenzaprine 10 MG tablet 10 mg PO TIDP PRNQty: 90 3RF pregabalin [Lyrica] 150 mg capsule 150 mg PO DAILY 0RF pravastatin 20 mg tablet 20 mg PO DAILY 0RF trazodone 100 MG tablet 100 mg PO PC 0RF albuterol sulfate [Ventolin HFA] 90 MCG/PUFF HFA aerosol inhaler 1 puff INH QIDP PRN (Reason: Shortness Of Breath) 0RF Follow up/Referrals: Volodymyr Agarwal MD [Physician] - Discharge Data Primary Care Provider: Tanvi Crockett
--- NOTE | 2021-06-27 11:17 | OT.IP.TRT ---
Current Diagnoses Anemia, unspecified (06/21/21) Surgery Performed Operation Date: 06/25/21 09:00 Actual Procedures p Esophagogastroduodenoscopy with biopsies - Alex Glass MD Occupational Therapy Treatment Note M2 OT-IP Current Condition Start: 06/22/21 12:31 Freq: Status: Active Protocol: Document 06/22/21 12:31 CGR (Rec: 06/22/21 12:48 CGR [id number]) Occupational Therapy Current Condition Current Condition Evaluation Date 06/22/21 Treatment Diagnosis L upper and lower extremity weakness with muscle spasms Diagnosis Onset Date 06/21/21 M3 OT- IP Subjective and Pain Start: 06/22/21 12:31 Freq: Status: Active Protocol: Document 06/27/21 10:25 CCC (Rec: 06/27/21 12:04 CCC [id number]) OT- Subjective Occupational Therapy Visit Type Type Treatment Note Visit Start Time 10:25 Visit Stop Time 11:17 Total Visit Minutes 54 Occupational Therapy Visit Comments Patient Comments Pt's , CIRCUIT BOARD REPAIR TECHNICIAN present for caregiver training. Patient/Caregiver Goals TO go home. OT Pain Assessment Pain When Pain Assessed At Rest Pain Present Pain Present Pain Reported M4 OT- IP ADL's Start: 06/22/21 12:31 Freq: Status: Active Protocol: Document 06/27/21 10:25 CCC (Rec: 06/27/21 12:04 CCC [id number]) OT ADL-Grooming Comments OT Grooming Comments NOt performed. OT ADL-Dressing Comments OT Dressing Comments Able to educated pt's how to assist pt for ADl needs . When standing, best to have pt hold to the FWW and assist with clothing and balance at the same time. OT ADL-Bathing Comments OT Bathing Comments Suggested may be best to use the tub / shower and get a tub bench to increase safety to get into and out of the shower . Currently pt is a very high fall risk, otherwise pt may want to consider just sponge bathing at times. M5 OT- IP IADL's Start: 06/22/21 12:31 Freq: Status: Active Protocol: Document 06/22/21 12:31 CGR (Rec: 06/22/21 12:48 CGR [id number]) OT-Instrumental Activities of Daily Living Deficits IADL Deficits Identified Deficits Home Safety Awareness Awareness of Need for Assistance at Home Good Awareness Ability to Problem Solve Emergency Unable to Problem Solve Situations Medication Management Medication Management No Deficits Identified Money Management Money Management No Deficits Identified Meal Preparation Meal Preparation Caregiver Provides Assist Pain Management Nurse Practitioner Pain Management Nurse Practitioner Caregiver Provides Assist Driving 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 Comments 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 M7 OT- IP Mobility and Balance Start: 06/22/21 12:31 Freq: Status: Active Protocol: Document 06/27/21 10:25 [facility] (Rec: 06/27/21 12:04 [facility] [id number]) OT- Bed Mobility Assessment Supine to Sit Supine to Sit Assist Moderate Assistance Scooting Scooting to Edge of Bed Contact Guard Assistance OT-Transfer Assessment Sit to and From Stand Sit to and from Stand Moderate Assistance Transfers Transfer Ability Moderate Assistance Technique Transfer Destination Bed,Chair Devices Transfer Assistive Devices Gait Belt,Front Wheeled Walker Comments Mobility Comments Able to educate pt's to lo/doff the gait belt and assist to stand pt, hold the FWW and the gait belt to be able to transfer the pt. Pt's able to demonstrate good safety. OT- Balance Assessment Sitting Balance and Reactions Static Sitting Balance Ability Good Dynamic Sitting Balance Ability Fair Standing Balance and Reactions Static Standing Balance Ability Poor Pt states has been trying to get her arms stronger by pulling up on the grab rail of the hospital bed, educated not to do that as she is twisting her body and best to work on stretching to maximize for ROM first. Edema Edema Absent M9 OT- IP Assessment and Plan Start: 06/22/21 12:31 Freq: Status: Active Protocol: Document 06/27/21 10:25 [facility] (Rec: 06/27/21 12:04 [facility] [id number]) OT Summary Assessment and Plan Potential Rehabilitation Potential Good Analytic Complexity at Evaluation High Summary OT Impairments Pain,Strength,Balance, Coordination,Functional Cognition,Functional Mobility, Grooming,Dressing,Toileting, Bathing,Toilet Transfers, Shower Transfers,Activity Tolerance Progress Towards Goals Progressing Toward Goals Assessment Summary Pt's present for caregiver training and suggested equipment needs of BSC, tub bench and FWW. Pt states would only consider FWW at this time. It would be very beneficial for pt to get HH to look at the safety of the environment and for continue to educated for equipment needs. Goals Grooming Goal Independent Dressing Goal Independent Toileting Goal Independent Bathing Goal Independent Toilet Transfer Goal Independent Shower Transfer Goal Independent Days to Meet Goals 19 Frequency of Treatment Frequency Of Treatment Once a Day Treatment Plan OT Treatment Plan ADL Training,Functional Cognition Training,Functional Mobility,Therapeutic Exercises ,Patient/Family Education, Discharge Planning Discharge Recommendations OT Discharge Recommendations Home with 20/12 Assist Available,Home Health,SNF Rehab Transportation Needs at Discharge Private Vehicle,Wheelchair/ Cabulance
[2021-06-27] MEDS: CYCLOBENZAPRINE 10 MG TABLET PO ×2 (13:34→20:36)
--- NOTE | 2021-06-27 14:19 | CM.DPNOTE ---
DCP Note According to Dr Pena, patient will not agree to SNF. Dr Pena continues to work on sodium adjustment will plan to DC patient home w/ Ryan and HH services Met w/patient and spouse Ryan; reviewed DCP. Patient plans to return home w/family and is agreeable to HH services. No agency preference Received VM from Rosanna clinical social work therapist through [facility] who states if DC planning needs to call her at P# [phone] LEOPOLDO Galdamez/DCP kindly agreed to assist w/HH referral. F2F signed by Dr Pena today JW
--- NOTE | 2021-06-27 14:32 | P.PN_ITS ---
Subjective Subjective Date Patient Seen: 06/27/21 Time Patient Seen: 09:45 Interval history: The pt this morning reports feeling like some of the weakness in her left arm is gradually improving. As per nursing, the pt is extremely unstable with ambulation, needing significant assistance. The pt continues to decline discharge to SNF/rehab, and plans to return home. Exam Vital Signs (past 8 hours): - 06/27/21 08:00 06/27/21 08:30 06/27/21 09:30 Temperature 97.1 F L Pulse Rate 98 H 70 70 Respiratory Rate 18 18 Blood Pressure 113/50 L 113/50 L Pulse Oximetry 97 97 06/27/21 09:50 Temperature Pulse Rate 70 Respiratory Rate Blood Pressure Pulse Oximetry Oxygen Delivery Method Room Air Oxygen Flow Rate 0 Narrative Exam Narrative: GENERAL:? Alert and oriented; sitting on commode HEENT:? Head normocephalic/atraumatic.? Extraocular movements intact. LUNGS:? Clear to ausculation bilaterally, no wheezes, rhonchi or rales. CV:? Normal S1 and S2 with regular rate and rhythm, no audible murmurs, rubs or gallops. ABDOMEN:? Soft, non-tender, non-distended, no organomegaly.? Positive bowel sounds. EXTREMITIES:? No clubbing, cyanosis, or edema.? Objective Labs Result Diagrams: 06/27/21 04:24 06/27/21 04:24 Labs: Laboratory Results - last 24 hr 06/25/21 06/25/21 06/25/21 04:53 04:53 04:53 WBC RBC Hgb Hct MCV MCH MCHC RDW Plt Count Neut % (Auto) Lymph % (Auto) [place] % (Auto) Eos % (Auto) Baso % (Auto) Neut # (Auto) Lymph # (Auto) [place] # (Auto) Eos # (Auto) Baso # (Auto) RBC Morphology Hypochromasia Poikilocytosis Anisocytosis Microcytosis Sodium Potassium Chloride Carbon Dioxide BUN Creatinine Estimated GFR BUN/Creatinine Ratio Glucose Calcium PTH Intact 28 Calcium (PTH Intact) 8.9 PTH Intact Intraop Comment Copper 172 H Zinc 53 06/27/21 06/27/21 04:24 04:24 WBC 7.2 RBC 4.96 Hgb 10.4 L Hct 32.6 L MCV 65.7 L MCH 20.9 L MCHC 31.8 RDW 26.7 H Plt Count 280 Neut % (Auto) 69.4 Lymph % (Auto) 18.[address] [place] % (Auto) 6.0 Eos % (Auto) 4.8 H Baso % (Auto) 0.9 Neut # (Auto) 5000 Lymph # (Auto) 1400 [facility] # (Auto) 400 Eos # (Auto) 300 Baso # (Auto) 100 RBC Morphology Not Reportable Hypochromasia 1+ H Poikilocytosis 1+ H Anisocytosis 2+ H Microcytosis 2+ H Sodium 129 L Potassium 3.6 Chloride 96 L Carbon Dioxide 32 BUN 10 Creatinine 0.50 L Estimated GFR > 60.0 BUN/Creatinine Ratio 20.0 Glucose 120 H Calcium 9.3 PTH Intact Calcium (PTH Intact) PTH Intact Intraop Copper Zinc PFSH Medical History Cervical spondylosis with radiculopathy Diabetes Herniated nucleus pulposus, L4-5 HTN (hypertension) Low grade B-cell lymphoma Neck pain, chronic Surgical History History of heart artery stent History of lumpectomy Status post delivery Status post tubal ligation Family History Brother Age: 57 Heart disease Father Hypertension Gallstones Diabetes mellitus Mother Gallstones Crohns disease Social History marital status: household members: spouse and family Smoking Status: Current every day smoker alcohol intake: never substance use type: other Assessment & Plan Assessment & Plan narrative: 61-year-old female admitted to hospital for possible CVA due to left upper extremity and left lower extremity weakness, HD#6. 1.? Left lower extremity and left upper extremity weakness with possibility of distant CVA, unchanged, residual weakness? -Echo/CT reassuring.? -MRI declined Plan:? High clinical suspicion for CVA/TIA.? Will minimize risks by controlling blood pressure and cholesterol with usual home medications.? Will continue PT/OT. ?Pts IV fell out and declined replacement, therefore telemetry discontinued. Holding blood thinner due to fall risk.? Plan for home with PT/OT and outpatient neurology referral based on patient request. 2.? Iron deficiency anemia, improved status blood and iron, suspect secondary to nutrition due to gastric bypass surgery but cannot rule out bleed or primary/secondary malignancy. ?-History of hypermetabolic PET scan in the right colon from cecum to hepatic flexure in 2018, subsequent colonoscopy was negative. -History of NSAID use with celecoxib 200 mg PO BID.? Just had old 5 year-old prescription of ibuprofen 800 mg every 6-8 hours as needed refilled on 05/18/21. -History of distant upper GI bleed, EGD on 06/25/21 reassuring, appreciate consult from general surgery -Discussed case with Dr. Ham, oncology on 06/24/21.? He recommended PET or CT then colonoscopy again to evaluate right colon lesion.? CT abd/pelvis on 05/31 11/18 showed no mass. Plan:? H/H much improved status post blood and iron yesterday.? Will repeat thi rd IV iron 300 mg infusion today. Will work on getting colonoscopy as an outpatient and maintain close oncology follow-up.? Continue protonix 40 mg IV BID.? Guaiac still pending.? Holding NSAIDs.? Will need ongoing outpatient IV iron to complete her course and home health with PT/OT. 3.? 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 Vitamin D 50,000 IU given 06/25/21, plan for weekly doses of 50,000 IU for 5 more weeks then transition to 2000 IU PO qd.? Awaiting full lab workup for remaining vitamin levels, can be repleted as outpatient once results are in. 4. Hyponatremia, chronic, baseline 130. 129 today. Plan:? Will continue to trend labs, fluid restrict today. 5.? Type 2 diabetes, chronic, diet controlled. Plan:? Diabetic diet. 6.? Hypertension, chronic, stable Plan:? Continue metoprolol.? Received lasix between units of PRBCs, will give additional 20 mg IV now.? Do not plan to restart HCTZ due to chronic hyponatremi a, may need metoprolol titrated prior to discharge. 7.? COPD, mild Plan: Continue ProAir and RT consult. 8. Depression/anxiety Plan: Continue on duloxetine and trazodone.? Pastoral care consult. 9. Coronary artery disease without acute symptoms Plan: Continue on pravastatin and metoprolol.? 10. Frequent falls related to weakness with pain diffusely Plan:? Suspect related to critical anemia, repleting with iron and blood, please see #1-2.? Will continue to treat symptoms with oxycodone, cyclobenzaprine, Lyrica, and duloxetine. 11. Left foot pain/muscle spasm of unclear etiology, suspect iron deficiency anemia. Plan:? IV iron.? Continue home pregabalin and pramipexole.? 12. Hodgkin's lymphoma without acute issues except for possible contribution to anemia Plan: Dr. Ham, oncology consutling.? Stable. 13.? Restless legs syndrome Plan: IV iron/PRBCs.? Continue home lyrica and pramipexole. 14. History of gastric ulcer, distant -EGD reassuring Plan:?? Pantoprazole 40 mg IV BID.? Code:? Full FEN:? carb consistent, PO fluids DVT:? SCDs GI:? protonix Dispo:? Should be ready for d/c with home health tomorrow. Pt aware of recommendation for SNF, but due to social circumstances feels she must d/c home. [facility] paperwork for her completed today. He is participating with PT/OT today and tomorrow for teaching as well. Time Spent With Patient Critical Care time: I spent a total of [] minutes of critical care time on this patient's care today; this time is exclusive of procedural time.
--- NOTE | 2021-06-27 14:37 | CM.DPC ---
DCP Cont: This DC Heater [employer] is assisting INTERNATIONAL GUEST COORDINATOR to call home health agencies, and to see which ones can accept insurance, and what their time frame is. Called Edson at [facility]. He anticipates that nursing can't see her until later in the week, next week. Spoke to Donte at [facility], and she indicated,they probably can't see her until Tuesday. Edson was not sure about the insurance, Donte seems to think that they have worked with them before. Called Rani at [facility]. She is familiar with this insurance, and can start the auth on Tuesday. She indicated, they probably can't see her until Tuesday, but can try sooner if possible. Edson at [facility] indicated that their patients that have wound needs are usually seen first. At this time, will go with [facility]. Face to face was signed, filled out face to face, printed out orders for RN, P.T, and O.T, confirmed with BRIANNE Alvarez, that this will be needed. Included H&P, today's progress note, and P.T, and O.T. notes. P: Plan is for patient to go home with [facility], RN, P.T, and O.T. Ivory Turner RN/Railroad Yard Worker
[2021-06-27] MEDS: TRAZODONE 100 MG TABLET 200 MG PO (20:36)
[2021-06-27] MEDS: ATORVASTATIN 20 MG TABLET 40 MG PO (20:36)
[2021-06-27] MEDS: SODIUM CHLORIDE 0.9% FLUSH 10 ML IV (20:37)
[2021-06-28 01:58] VITALS: BP 106/52; PULSE 69; RESP 17; TEMP 36.2; O2SAT 98
[2021-06-28] MEDS: OXYCODONE IR 5 MG TABLET PO ×3 (03:48→13:12)
[2021-06-28 06:00] VITALS: BP 111/60; PULSE 68; RESP 16; TEMP 36.4; O2SAT 93
[2021-06-28 06:02] LABS: Basophils Absolute Auto 100 /uL (0-100); Basophils Percent Auto 0.9 % (0-2); Eosinophils Absolute Auto 300 /uL (0-450); Eosinophils Percent Auto 5.4 % (2-4); Hematocrit 31.6 % (36-46); Lymphocytes Absolute Auto 1600 /uL (1100-4500); Lymphocytes Percent Auto 26.8 % (25-40); Mean Corpuscular HGB Conc 31.6 % (30-36); Mean Corpuscular Hemoglobin 21.2 PG (26-34); Mean Corpuscular Volume 67.1 fL (80-100); Monocytes Absolute Auto 500 /uL (0-900); Neutrophils Absolute Auto 3600 /uL (1500-7000); Neutrophils Percent Auto 58.9 % (50-75); Platelet Count 276 X10^3/uL (150-400); Red Blood Cell Count 4.72 X10^6/uL (4.0-5.2); Red Cell Distribution Width 27.1 % (11.6-14.8); White Blood Cell Count 6.1 X10^3/uL (4.5-11.0)
[2021-06-28 06:04] LABS: BUN Creatinine Ratio 25.5 (6-22); Blood Urea Nitrogen 13 mg/dL (7-17); Carbon Dioxide 32 mmol/L (22-32); Chloride 98 mmol/L (98-107); Estimated Glomerular Filt Rate > 60.0 mL/min (>60); Glucose 117 mg/dL (80-110); HEMOLYSIS < 15 (0-50); Potassium 3.4 mmol/L (3.4-5.1); Sodium 130 mmol/L (137-145)
[2021-06-28 06:05] LABS: Add Manual Diff / Slide Review SLIDE REVIEW
[2021-06-28] MEDS: ACETAMINOPHEN 325 MG TABLET 650 MG PO (06:27)
[2021-06-28 08:00] VITALS: BP 110/71; PULSE 66; RESP 17; TEMP 36.6; O2SAT 94
[2021-06-28] MEDS: DOCUSATE 100 MG CAPSULE PO (08:29)
[2021-06-28] MEDS: PREGABALIN 75 MG CAPSULE 150 MG PO (08:30)
[2021-06-28] MEDS: METOPROLOL ER 50 MG TABLET PO (08:30)
[2021-06-28] MEDS: DULOXETINE 30 MG CAPSULE PO (08:30)
[2021-06-28] MEDS: PRAMIPEXOLE 0.25 MG TABLET 0.125 MG PO (08:31)
[2021-06-28 09:20] VITALS: PULSE 66; RESP 16; O2SAT 94
--- NOTE | 2021-06-28 11:03 | PT.IPTN ---
Current Diagnoses Anemia, unspecified (06/21/21) Surgery Performed Operation Date: 06/25/21 09:00 Actual Procedures p Esophagogastroduodenoscopy with biopsies - Alex Glass MD Physical Therapy Treatment Note M2 PT-IP Current Condition Start: 06/22/21 09:11 Freq: NEEDED Status: Active Protocol: Document 06/24/21 09:22 SP (Rec: 06/24/21 15:29 SP [id number]) Physical Therapy Current Condition Current Condition Evaluation Date 06/22/21 Treatment Diagnosis weakness, falls, impaired mobility and gait Onset Date 06/08/21 M3 PT-IP Subjective Start: 06/22/21 09:11 Freq: NEEDED Status: Active Protocol: Document 06/28/21 10:31 RBD (Rec: 06/28/21 12:28 RBD [id number]) Subjective Physical Therapy Visit Type Type Treatment Note Visit Start Time 10:29 Visit Stop Time 11:03 Total Visit Minutes 34 Notes present for caregiver training. Number of METAL CONTAINER MAKER Visits 5 Physical Therapy Visit Comments Patient Comments Pt agreeable to work w/ therapy. M4 PT-IP Mobility and Gait Start: 06/22/21 09:11 Freq: NEEDED Status: Active Protocol: Document 06/28/21 10:31 RBD (Rec: 06/28/21 12:28 RBD [id number]) PT-Bed Mobility Assessment Supine to Sit Supine to Sit Minimal Assistance Scooting Scooting to Edge of Bed Moderate Assistance Scooting Up and Down in Bed Moderate Assistance PT-Transfer Assessment Sit to and From Stand Sit to and from Stand Minimal Assistance,1 Person Assistance,Use of Upper Extremities Equipment Transfer Assistive Device Gait Belt,Front Wheeled Walker Orthotic/Prosthetic Devices or Brace: No Transfers Transfer Destination Wheelchair Transfer Technique Pt ambulated w/ FWW Transfer Ability Level of Assist Minimal Assistance,Moderate Assistance,1 Person Assistance ,Use of Upper Extremities Comments Mobility Comments Pt in bed upon arrival from therapy w/ in room. provided all assist during treatment. Agreeable to caregiver and stair training. CGA for sup<>sit W/ head of bed elevated. Min A for scooting to EOB. Pt able to apply gaitbelt safely. Min A for Sit <> stand and pt ambulated ~10 ft w/ fww to wheelchair outside room. Min A for stand<>sit in wheelchair. At therapy stairs, Min A sit< >stand w/ fww. Pt able to complete 3 steps acceding and descending w/ mod A from spouse and L rail. Min A stand <>sit in wheelchair. When back in room, Min A sit<>stand and ambulated ~6 feet w/ fww to the bed. CGA for sit<>supine. Mod A for scooting bed mobility . Pt left in bed w/ bed alarm on, call light and all needs within reach. Gait Assessment Gait Gait Assistance Required: Minimum Assistance,1 Person Assist Distance (Feet) 16 Able to Maintain Weight Bearing Status Yes During Gait Assistive Devices Assistive Device Gait Belt,Front Wheeled Walker Gait Deviations General Gait Pattern Antalgic,Decreased Stride Length,Decreased Feet Clearance,Flexed Trunk Factors Limiting Gait Function Factors Limiting Gait Function Abnormal Tonal Influences, Decreased Activity Tolerance, Decreased Sensation,Decreased Strength,Incoordination,Pain, Poor Balance,Poor Safety Awareness Comments Gait Comments Ambulated ~15ft w/ Fww min A by . No knee buckling. Stair Climbing Assessment Evaluation Level of Assist On Stairs Moderate Assistance Devices Stair Climbing Assistive Devices Left Railing Technique/Endurance Stair Climbing Direction Ascend and Descend Stair Climbing Technique Step to Step Number of Steps Climbed 3 Stair Climbing Set # Repetitions (reps) 1 Comments Stair Climbing Comments Pt required Mod A for accending and decending stairs w/ L hand rail and hand hold assist from on R side. Pt verbilized LE fatuige however not occureance of knee buckling. PT-Balance Assessment Sitting Balance and Reactions Static Sitting Balance Ability Poor Dynamic Sitting Balance Ability Poor Standing Balance and Reactions Static Standing Balance Ability Poor Dynamic Standing Balance Ability Poor Device Used FWW M5 PT-IP Objective Assessments Start: 06/22/21 09:11 Freq: NEEDED Status: Active Protocol: Document 06/22/21 10:26 AW (Rec: 06/22/21 12:00 AW [id number]) Orientation Orientation/Cognition Level of Alertness Alert Orientation Name,Day of Week,Place, Situation Language Function Ability No Deficits Noted Safety Awareness Decreased Safety Awareness Gross Range of Motion Upper Extremity ROM Assessment Left Impaired Impairments History of L rotator cuff dysfunction Lower Extremity ROM Assessment Within Functional Limits Strength Upper Extremity Strength Assessment Bilaterally Impaired Lower Extremity Strength Assessment Bilaterally Impaired Hip R 4-/5; L 3+/5 Knee R 4/5; L 3+/5 Ankle R 4/5; L 3/5 Comments Strength Comments Formal MMT is complicated by pain presentation but pt is globally weak and LLE ~1/2 grade weaker in all muscle groups. Coordination Assessment Gross Coordination Gross Coordination Impaired Assessment Finger to Nose Test Minimal Impairment Sensation Assessment Sensation Gross Sensation WNL Muscle Tone Muscle Tone WNL Yes Other Assessments Other Other Assessments Lumbar ROM not assessed. Pt is observed to move her neck with minimal hesitation in flexion/extension and rotation . Lateral flexion is not observed. Pt has scattered bruises in varying phases of healing consistent with frequent falls. M6 PT-IP Treatment Start: 06/22/21 09:11 Freq: NEEDED Status: Active Protocol: Document 06/28/21 10:31 RBD (Rec: 06/28/21 12:28 RBD [id number]) Physical Therapy Treatment Education Education Provided Safety Other Treatments Other Treatment Performed Caregiver/stair training completed. Dispensed Fww to Pt. M7 PT-IP Assessment and Plan Start: 06/22/21 09:11 Freq: NEEDED Status: Active Protocol: Document 06/28/21 10:31 RBD (Rec: 06/28/21 12:28 RBD [id number]) PT Summary Assessment and Plan Potential Rehabilitation Potential Good Status of Condition at Evaluation Evolving Summary Impairments Pain,ROM,Strength,Balance, Coordination,Bed Mobility, Transfers,Gait Progress Towards Goals Slow Progress due to Medical Issues,Slow Progress due to Activity Tolerance Assessment Summary Continued caregiver and stair training w/ pts . He was able to provide assist and cues for bed mobility and ambulation w/ FWW. He required some assitance cues on stairs , however, was able to guard safely. Pt remains limited in mobility due to weakness and is a high fall risk, but plans on going home. Dispensed FWW for home use. Goals Bed Mobility Goal Independent Transfer Goal Standby Assistance,Front Wheeled Walker Gait Goal Standby Assistance,Front Wheel Walker Gait Distance 200 Other Goals - up/down 2 steps no rail SBA Days to Meet Goals 10 Frequency of Treatment Frequency Of Treatment Once a Day Treatment Plan Physical Therapy Treatment Plan Bed Mobility Training,Transfer Training,Gait Training, Therapeutic Exercise,Balance Retraining,Discharge Planning, Hot or Cold Pack,Neuromuscular Re-ed,Coordination Retraining ,Manual Therapy Other Recommendations and Next Treatment increase ambulation. Focus Precautions Other Precautions falls Recommendations To Nursing Amount of Assist Needed 2 Person Assist Discharge Recommendations PT Discharge Recommendations SNF Rehab Equipment Needed for Home Before FWW Discharge Transportation Needs at Discharge Wheelchair/Cabulance
--- NOTE | 2021-06-28 12:54 | PC.NURSE ---
oxy RX 1250 pt requesting oxycodone RX as has been [place] in hospital. Call from this RN to to notify MD about the same as provider has already issued DC orders. states will electronically transmit RX to pt's preferred pharmacy [facility]. Pt aware of the same. Pt last took oxycodone at 0830 and is educated may take Q4PRN and written on pt's DC paperwork.
--- NOTE | 2021-06-28 13:27 | P.DS_ITS ---
History of Present Illness History of Present Illness Date Patient Seen: 06/28/21 Time Patient Seen: 10:30 Chief complaint: Syncope, glf Narrative: This pleasant 61-year-old female who is under the primary care of Dr. Crockett presents to the ER via EMS due to concerns for frequent falling and progressive weakness.? Patient has a history of type 2 diabetes, Hodgkin's lymphoma, hypertension, hyponatremia, hyperlipidemia as well as radiculopathy, COPD. Over the last several weeks she has had frequent falling and has had progressive weakness and was felt to have left upper extremity and left lower extremity weakness and concern for possible CVA within the last 2 weeks.? The patient has a history of multiple orthopedic issues including left shoulder rotator cuff problems as well as cervical radiculopathy and lumbar radiculopathy.? She has had a previous history long chronic of low back pain.? With sciatica.? She previously has been on opioid medications for this but she went off of it because she did not like how they made her feel cognitively. In the last 2 weeks the patient has had progressive weakness of her left arm and her left leg.? She has fallen multiple times in having increased pain.? She is mod been taking her medications regularly.? She has not taken any medications today.? She has not eaten and she has not drank anything really today.? She was admitted for further monitoring and treatment. Discharge Providers Provider Date of admission: 06/21/21 20:32 Discharge Date: 06/28/21 Primary care physician: Tanvi Crockett MD Consults: 06/21/21 22:59 Consult to Discharge Planning Routine Comment: Consult to Physical Therapy Evaluate & Treat Comment: Physician Instructions: Evaluate and Treat 06/22/21 09:25 Consult to Occupational Therapy Evaluate & Treat Comment: Physician Instructions: Evaluate and treat 06/24/21 13:14 Consult to General Surgery Routine Comment: Consulting Provider: Alcides Holliday Reason for consultation: anemia, severe Has provider been notified: Yes 06/24/21 19:15 Consult to Occupational Therapy Evaluate & Treat Comment: Physician Instructions: Evaluate and treat 06/24/21 19:20 Consult to Dietitian, Adult Routine Comment: Reason For Exam: h/o gastric bypass, iron deficiency anemia 06/26/21 06:58 Consult to Pastoral Services Routine Comment: depression/anxiety 06/27/21 14:25 Consult to Home Health Routine Comment: Reason For Exam: Home Health RN, P.T, O.T. 06/28/21 11:49 Consult to Home Health Routine Comment: Reason For Exam: FWW for Home Use Discharge provider: Eleanor Pena MD Summary Hospital Course Discharge Diagnosis: 1.? Left lower extremity and left upper extremity weakness 2.? Iron deficiency anemia 3.? Vitamin deficiencies 4. Hyponatremia 5.? Type 2 diabetes 6.? Hypertension 7.? COPD 8. Depression/anxiety 9. Coronary artery disease 10. Frequent falls related to weakness with pain diffusely 11. Left foot pain/muscle spasm 12. Hodgkin's lymphoma 13.? Restless legs syndrome 14. History of gastric ulcer, distant Hospital Course: The pt was admitted with concerns for CVA. Head CT was negative, but the pt declined MRI. Echocardiogram was normal. PT/OT worked with the pt during her hospitalization, with some improvement in her left sided weakness but it was not back to baseline at the time of discharge and the pt was still requiring significant assistance with ADLs. SNF was recommended, but the pt declined and elected to return home with home health. Her and caregiver were able to work briefly with PT while she was in the hospital. While in the hospital, the pt was noted to have significant iron deficiency anemia. Iron infusions were initiated, and she completed three prior to discharge. IV protonix was initiated. CT abdomen was obtained, it was found that that pt had a Rosi-en-Y bypass surgery, which was not previously known. She underwent EGD that showed evidence of mild gastritis but no active bleeding. The pts anemia became severe, and after initially declining transfusion she ultimately agreed to transfusion. Her H/H remained stable. She will need an outpatient colonoscopy, and potentially ongoing iron transfusions due to her decreased absorptive capabilities. She will be discharged on a PPI. The pt was also noted to have severe Vitamin D deficiency, and replacement was initiated that will need to be continued as an outpatient. The pt had persistent hyponatremia while in the hospital. It stabilized after IV fluids, but remains low at the time of discharge. She also had hypokalemia that responded well to supplementation. Her hydrochlorothiazide was discontinued. Status at Discharge Cognitive/behavioral status at discharge: oriented Functional status at discharge: uses cane/walker Overall status at discharge: patient is not back to baseline Exam Vital Signs (past 8 hours): - 06/28/21 06:00 06/28/21 08:00 06/28/21 09:20 Temperature 97.6 F 98 F Pulse Rate 68 66 66 Respiratory Rate 16 17 16 Blood Pressure 111/60 110/71 Pulse Oximetry 93 94 94 Oxygen Delivery Method Room Air Oxygen Flow Rate 0 Narrative Exam Narrative: GENERAL:? Alert and oriented; sitting on commode HEENT:? Head normocephalic/atraumatic.? Extraocular movements intact. LUNGS:? Clear to ausculation bilaterally, no wheezes, rhonchi or rales. CV:? Normal S1 and S2 with regular rate and rhythm, no audible murmurs, rubs or gallops. ABDOMEN:? Soft, non-tender, non-distended, no organomegaly.? Positive bowel sounds. EXTREMITIES:? No clubbing, cyanosis, or edema.? Objective Labs Result Diagrams: 06/28/21 05:05 06/28/21 05:05 Labs: Laboratory Results - last 24 hr 06/28/21 06/28/21 05:05 05:05 WBC 6.1 RBC 4.72 Hgb 10.0 L Hct 31.6 L MCV 67.1 L MCH 21.2 L MCHC 31.6 RDW 27.1 H Plt Count 276 Neut % (Auto) 58.9 Lymph % (Auto) 26.8 Traverse % (Auto) 8.0 Eos % (Auto) 5.4 H Baso % (Auto) 0.9 Neut # (Auto) 3600 Lymph # (Auto) 1600 [place]verse # (Auto) 500 Eos # (Auto) 300 Baso # (Auto) 100 Plt Morphology Comment * RBC Morphology See below Dimorphic RBCs * Sodium 130 L Potassium 3.4 Chloride 98 Carbon Dioxide 32 BUN 13 Creatinine 0.51 L Estimated GFR > 60.0 BUN/Creatinine Ratio 25.5 H Glucose 117 H Calcium 9.0 PFSH Medical History Cervical spondylosis with radiculopathy Diabetes Herniated nucleus pulposus, L4-5 HTN (hypertension) Low grade B-cell lymphoma Neck pain, chronic Surgical History History of heart artery stent History of lumpectomy Status post delivery Status post tubal ligation Family History Brother Age: 57 Heart disease Father Hypertension Gallstones Diabetes mellitus Mother Gallstones Crohns disease Social History marital status: household members: spouse and family Smoking Status: Current every day smoker alcohol intake: never substance use type: other Discharge Plan Discharge Plan Patient Disposition: Home Health Service Discharge orders & Medications Prescriptions: New atorvastatin [Lipitor] 20 mg Tablet 40 mg PO BEDTIME Qty: 30 0RF metoprolol succinate 50 mg Tablet Extended Release 24 Hr 50 mg PO DAILY Qty: 30 0RF trazodone 100 mg Tablet 200 mg PO BEDTIME Qty: 30 0RF pramipexole [Mirapex] 0.25 mg Tablet 0.125 mg PO BID Qty: 60 0RF omeprazole 20 mg capsule,delayed release(DR/EC) 20 mg PO BID Qty: 60 0RF oxycodone 5 mg Tablet 5 mg PO Q4HR PRN (Reason: Pain, Moderate (4-6)) Qty: 20 0RF Continued ASPIRIN (Aspirin Ec) 81 mg PO Q DAY Qty: 0 0RF fluticasone propion-salmeterol [Advair Diskus] 250 MCG/50 MCG blister with device 1 puff INH BID Qty: 60 3RF promethazine 25 MG tablet 25 mg PO Q6HP PRNQty: 120 0RF duloxetine [Cymbalta] 30 MG capsule,delayed release(DR/EC) 30 mg PO SEE INSTRUCTIONS Qty: 90 0RF cyclobenzaprine 10 MG tablet 10 mg PO TIDP PRNQty: 90 3RF pregabalin [Lyrica] 150 mg capsule 150 mg PO DAILY 0RF albuterol sulfate [Ventolin HFA] 90 MCG/PUFF HFA aerosol inhaler 1 puff INH QIDP PRN (Reason: Shortness Of Breath) 0RF Discontinued Metoprolol Succinate (Toprol Xl) 100 mg PO QAM Qty: 0 0RF HYDROCHLOROTHIAZIDE (Hydrodiuril / Hctz) 25 mg PO DAILY Qty: 0 0RF pravastatin 20 mg tablet 20 mg PO DAILY 0RF trazodone 100 MG tablet 100 mg PO PC 0RF Follow up/Referrals: Volodymyr Agarwal MD [Physician] - 1 Week Diet/Activity/Treatments Diet: Diet as Tolerated and Regular Visit Report/Discharge Packet Instructions: DI for Stroke-Ischemic, DI for Gastroesophageal Reflux Disease (GERD), DI for Hyponatremia, How to Prevent Falls Visit Report Forms: Patient Portal/API, Stroke Signs & Symptoms Discharge Data Primary Care Provider: Tanvi Crockett
--- NOTE | 2021-06-28 14:12 | PC.NURSE ---
Discharge education provided, verbalized understanding of all written and verbal instructions. Pt escorted out via w/c to private vehicle. Pt left in stable condition with all personal belongings.
--- NOTE | 2021-06-28 14:20 | CM.DPC ---
DCP Discharge Home with HH Per MD, pt is medically stable to d/c home today with HH and no identified barriers to discharge. Per DIRECTOR ORACLE, CG training set up with spouse this morning and requesting FWW orders for issuing at d/c for mobility. SW called [facility] and left msg with update on pt d/c home today and faxed d/c summary to review and F2F and MD orders previously faxed yesterday. Plan: Patient to d/c home today via spouse POV and FWW and [facility] to open pt to service. BRIANNE Rain
[2021-06-28 19:47] LABS: Alpha-Tocopherol 5.7 mg/L (9.0-29.0)
[2021-06-29 10:12] LABS: Vitamin B1 95.6 nmol/L (66.5-200.0)
[2021-06-29 16:20] LABS: Selenium 101 ug/L (93-198)
== END 2021-06-28 13:34 | disposition home health service (06) | DRG 812 ==
LOC: ED 20:30 → AC 06-22 07:51
PROVIDERS: Emergency Medicine; Family Medicine; Surgery; Admitting Provider Family Medicine; Emergency Provider Emergency Medicine; PCP Student in an Organized Health Care Education/Training Program; Referring Provider Emergency Medicine; Visit Provider Student in an Organized Health Care Education/Training Program
PROC: 0DJ08ZZ Inspection of Upper Intestinal Tract, Via Natural or Artificial Opening Endoscopic (ICD-10-PCS; CPT 43235; principal; 2021-06-25 09:00)
DX: D50.9 Iron deficiency anemia, unspecified (principal); I69.954 Hemiplegia and hemiparesis following unspecified cerebrovascular disease affecting left non-dominant side; E87.1 Hypo-osmolality and hyponatremia; K91.2 Postsurgical malabsorption, not elsewhere classified; M79.672 Pain in left foot; K29.70 Gastritis, unspecified, without bleeding; E87.6 Hypokalemia; E55.9 Vitamin D deficiency, unspecified; G25.81 Restless legs syndrome; J44.9 Chronic obstructive pulmonary disease, unspecified; F41.8 Other specified anxiety disorders; I10 Essential (primary) hypertension; I25.10 Atherosclerotic heart disease of native coronary artery without angina pectoris; E11.9 Type 2 diabetes mellitus without complications; F17.210 Nicotine dependence, cigarettes, uncomplicated; W18.30XA Fall on same level, unspecified, initial encounter; M54.2 Cervicalgia; S20.211A Contusion of right front wall of thorax, initial encounter; Z98.84 Bariatric surgery status; Z91.81 History of falling; Z20.822 Contact with and (suspected) exposure to COVID-19; Z95.5 Presence of coronary angioplasty implant and graft
CPT/HCPCS: 36415; 36430; 36592; 43239; 70450; 71045; 72125; 74177; 80048; 80053; 80305; 80320; 81001; 82306; 82310; 82525; 82607; 82728; 82746; 82962; 83036; 83540; 83550; 83615; 83735; 83970; 84255; 84425; 84446; 84484; 84590; 84630; 85025; 86850; 86900; 86901; 87635; 93306; 94760; 96374; 97110; 97116; 97129; 97162; 97167; 97530; 97535; 99232; 99238; 99284; C9803; P9016; C9113; J1170; J1200; J1650; J1756; J1940; J2250; J3010; J7050

== ENCOUNTER → 2022-02-19 16:49 | Outpatient (CLI) | payer OTHER, SELFPAY ==
[2021-06-21 22:54] VITALS: BMI 27.5
--- NOTE | 2022-02-19 | DI.MRI.S_ITS ---
PROCEDURE: MR THORACIC SPINE WO CON INDICATIONS: Radiculopathy, cervical region/Thoracic spine pain TECHNIQUE: Noncontrast sagittal T1 spine echo and T2 fast spin echo, sagittal STIR, and T2 fast spin echo through the thoracic spine. COMPARISON: None. FINDINGS: Image quality: Excellent. Alignment and Curvature: There is normal bony alignment. Bone Marrow: Marrow is of normal overall signal. No acute vertebral body compression fractures. Spinal Cord: Visualized spinal cord is normal in size and signal. Paraspinous Soft Tissues: No paravertebral masses. Miscellaneous: On axial images, central canal and foramina appear widely patent at all scanned levels. There is mild diffuse intervertebral disc desiccation and height loss consistent with mild degenerative change. IMPRESSION: 1. No canal stenosis. No neural foraminal stenosis. 2. Mild diffuse intervertebral disc desiccation and height loss. Dictated by: Nikki Lozano M.D. on 02/22/2022 at 10:24 Approved by: Nikki Lozano M.D. on 02/22/2022 at 10:25
--- NOTE | 2022-02-19 16:50 | DI.MRI.S_ITS ---
PROCEDURE: MR CERVICAL SPINE WO CON INDICATIONS: Radiculopathy, cervical region/Thoracic spine pain TECHNIQUE: Noncontrast sagittal T1 spin echo and T2 fast spin echo, sagittal STIR, foraminal oblique sagittal T2 fast spin echo, and axial gradient echo or T2 fast spin echo through the cervical spine. COMPARISON: [facility], MR, MR THORACIC SPINE WO CON, 02/19/2022, 17:11. FINDINGS: Image quality: Excellent. Alignment and Curvature: There is grade I C3 on C4 and C4 on C5 anterolithesis, C6 on C7 retrolithesis, and focal kyphosis centered at C5. Bone Marrow: Marrow demonstrates normal overall signal. There are multilevel reactive endplate changes. Spinal Cord: Increased STIR signal is present within the central aspect of the cord at C4-5. No cerebellar tonsillar herniation. Paraspinous Soft Tissues: No paravertebral masses. Prevertebral soft tissues are normal in thickness. C2-C3: Mild disc desiccation and height loss. No canal stenosis. No foraminal stenosis. C3-C4: Mild disc desiccation and height loss. Severe right and mild left neural foraminal stenosis. No canal stenosis. C4-C5: Severe disc desiccation loss. Broad-based disc bulge with facet hypertrophy and resultant moderate to severe canal stenosis. There is mild deformity of the cord. Abnormal STIR signal is present within the central aspect of the cord. There is severe bilateral foraminal stenosis. C5-C6: Severe disc desiccation and height loss. Broad-based disc bulge. Severe bilateral foraminal stenosis and severe canal stenosis. There is mild deformity of the cord without cord signal abnormality. C6-C7: Severe disc desiccation and height loss. Broad-based disc bulge. Severe bilateral foraminal stenosis. Severe canal stenosis. No deformity of the cord or cord signal abnormality. C7-T1: No canal stenosis. Moderate left foraminal stenosis. Mild right foraminal stenosis. IMPRESSION: 1. Severe degenerative disc disease within the mid and lower cervical spine with resultant spondylolisthesis and kyphosis centered at C5. 2. Severe canal stenosis at C4-5, C5-6, and C6-7 with deformity of the cord and abnormal STIR signal at C4-5 suggesting myelomalacia. 3. Severe bilateral neural foraminal stenosis at C4-5, C5-6, and C6-7. Severe right foraminal stenosis at C3-4 and moderate left foraminal stenosis at C7-T1. Dictated by: Nikki Lozano M.D. on 02/22/2022 at 8:47 Approved by: Nikki Lozano M.D. on 02/22/2022 at 9:15
== END ==
PROVIDERS: PCP Student in an Organized Health Care Education/Training Program; Referring Provider Family Medicine; Visit Provider Family Medicine
DX: M50.121 Cervical disc disorder at C4-C5 level with radiculopathy (principal); M48.02 Spinal stenosis, cervical region; M48.03 Spinal stenosis, cervicothoracic region; M43.12 Spondylolisthesis, cervical region; M40.202 Unspecified kyphosis, cervical region; M51.14 Intervertebral disc disorders with radiculopathy, thoracic region
CPT/HCPCS: 72141; 72146

== ENCOUNTER → 2022-08-07 11:45 | Outpatient (CLI) | payer OTHER, SELFPAY ==
[2021-06-21 22:54] VITALS: BMI 27.5
--- NOTE | 2022-08-07 11:51 | DI.CT.S_ITS ---
PROCEDURE: CT CERVICAL SPINE WO CON INDICATIONS: Radiculopathy, cervical region TECHNIQUE: Noncontrast 3 mm thick sections acquired from the skull base to the T4 level. Sagittal and coronal reformats were then constructed. For radiation dose reduction, the following was used: automated exposure control, adjustment of mA and/or kV according to patient size. COMPARISON: [facility], CR, XR CERVICAL SPINE 4V OR 5V, 08/07/2022, 11:57. [facility], CT, CT CERVICAL SPINE WO CON, 06/21/2021, 17:43. [facility], CT, C-SPINE WITHOUT CONTRAST, 04/18/2012, 23:51. FINDINGS: Image quality: Excellent. Bones: No fractures or dislocations and the current CT scanning with reference to prior plain film and cervical CT scanning assessment from 06/21/21 shows only grade 1 anterolisthesis of C4 on C5. However, plain film imaging also obtained same day shows significant grade 2 anterolisthesis of C4 on C5 during flexion imaging. This indicates ligamentous laxity likely from degenerative or prior traumatic etiology allowing subluxation to the degree significant spinal and foraminal stenosis likely would be produced.. Visualized superior ribs are intact. Soft tissues: Prevertebral soft tissues are normal in thickness. No paravertebral hematomas. No apical pneumothoraces. IMPRESSION: No acute trauma is found however there is degenerative changes that are moderately severe to severe along the mid and lower cervical spine including anterolisthesis indicating ligamentous laxity at C4-C5, more pronounced during plain film flexion imaging earlier same day than during the current CT scanning. The ligamentous laxity seen by plain film imaging likely would produce severe spinal and foraminal stenosis and for this reason near term surgical follow-up assessment is recommended. Dictated by: Froilan Adams M.D. on 08/07/2022 at 20:19 Approved by: Froilan Adams M.D. on 08/07/2022 at 20:23
--- NOTE | 2022-08-07 11:52 | DI.RAD.S_ITS ---
PROCEDURE: XR CERVICAL SPINE 4V OR 5V INDICATIONS: Radiculopathy, cervical region TECHNIQUE: 5 views of the cervical spine were acquired. COMPARISON: [facility], CR, XR CERVICAL SPINE 2V OR 3V, 08/25/2018, 14:10. FINDINGS: Bones: No fractures or dislocations to the T1 level. No suspicious bony lesions but there is moderately severe to severe degenerative cervical osteoarthritic joint space narrowing and disc disease, with a new finding with reference to the comparison study from July of 2018 a grade 2 anterolisthesis of C4 on C5. This becomes slightly more prominent on the flexion imaging when compared to extension imaging. There is normal range of motion between flexion and extension, with preserved normal bony alignment. Soft tissues: Prevertebral soft tissues are normal in thickness. IMPRESSION: No acute trauma found. Severe degenerative changes with progression from July of 2018, now with prominent grade 2 anterolisthesis of C4 on C5 likely resulting in severe spinal and foraminal stenosis at this level. Significant ligamentous laxity is present as a result. Surgical consultation follow-up appears warranted. Well there was quite severe degenerative change at this level in 2019 subluxation was not associated at that time. Dictated by: Froilan Adams M.D. on 08/07/2022 at 20:17 Approved by: Froilan Adams M.D. on 08/07/2022 at 20:19
== END ==
PROVIDERS: PCP Family Medicine; Referring Provider Family Medicine; Visit Provider Family Medicine
DX: M47.22 Other spondylosis with radiculopathy, cervical region (principal); M43.12 Spondylolisthesis, cervical region; M99.52 Intervertebral disc stenosis of neural canal of thoracic region; M48.02 Spinal stenosis, cervical region
CPT/HCPCS: 72050; 72125

== ENCOUNTER → 2022-12-10 18:59 | Outpatient (CLI) | payer OTHER, SELFPAY ==
[2021-06-21 22:54] VITALS: BMI 27.5
--- NOTE | 2022-12-10 | DI.MRI.S_ITS ---
PROCEDURE: MR CERVICAL SPINE WO CON INDICATIONS: Radiculopathy, cervical region TECHNIQUE: Noncontrast sagittal T1 spin echo and T2 fast spin echo, sagittal STIR, foraminal oblique sagittal T2 fast spin echo, and axial gradient echo or T2 fast spin echo through the cervical spine. COMPARISON: [facility], CT, CT CERVICAL SPINE WO CON, 08/07/2022, 12:00. [facility], MR, MR CERVICAL SPINE WO CON, 02/19/2022, 17:11. FINDINGS: Image quality: Excellent. Alignment and Curvature: There is grade 1/2 anterolisthesis of C4 on C5 measuring 5 mm, trace retrolisthesis of C5 on C6, C6 on C7. Appearance is stable. Bone Marrow: Marrow demonstrates normal overall signal. Spinal Cord: Visualized spinal cord has normal size. Previous focus of increased T2/stir signal within the central cord at C4-5 remains present minimally less prominent. No cerebellar tonsillar herniation. Paraspinous Soft Tissues: No paravertebral masses. Prevertebral soft tissues are normal in thickness. Discs: Multilevel moderate to severe disc desiccation most severe at C5-6, C6-7. C2-C3: No disc bulge, spinal stenosis or foraminal narrowing. No interval change. C3-C4: Mild disc bulge with minimal thecal sac effacement, unchanged. Severe right and mild left foraminal narrowing with uncovertebral arthropathy, unchanged. C4-C5: Mild disc bulge with severe spinal stenosis. Severe bilateral foraminal narrowing with uncovertebral hypertrophy. No interval change. C5-C6: Mild disc bulge with severe spinal stenosis. Severe bilateral foraminal narrowing with uncovertebral hypertrophy. No interval change. C6-C7: Mild disc bulge with severe spinal stenosis. Severe bilateral foraminal narrowing with uncovertebral hypertrophy. No interval change. C7-T1: Minimal disc bulge with minimal spinal stenosis. Mild bilateral foraminal narrowing. No interval change. IMPRESSION: Multilevel degenerative changes overall stable. Multilevel severe spinal stenosis is present from C4-5 through C6-7 secondary to disc bulge with contributing effect of anterior/retrolisthesis. Multilevel severe foraminal narrowing most severe at C4-5 through C6-7 with compression of the exiting nerve roots bilaterally secondary to uncovertebral arthropathy. Dictated by: Sherlyn Damon M.D. on 12/13/2022 at 15:42 Approved by: Sherlyn Damon M.D. on 12/13/2022 at 16:28
== END ==
PROVIDERS: PCP Family Medicine; Referring Provider Neurological Surgery; Visit Provider Neurological Surgery
DX: M47.12 Other spondylosis with myelopathy, cervical region (principal); M47.22 Other spondylosis with radiculopathy, cervical region; M48.02 Spinal stenosis, cervical region
CPT/HCPCS: 72141